=== PATIENT | male | born 1930 | race Caucasian/White ===

== ENCOUNTER → 2016-09-09 | Outpatient (CLI) | payer MEDICARE, BC ==
[~2016-09-09] VITALS: Ht 172.7 cm; Wt 92.3 kg
== END ==
LOC: RC 09:58
PROVIDERS: ATTEND Family Medicine
DX: J44.9 Chronic obstructive pulmonary disease, unspecified (principal)
CPT/HCPCS: 94060; 94726

== ENCOUNTER 2017-02-16 12:15 | Inpatient (IN) ==
--- NOTE | 2017-02-16 12:33 | Emergency Department Report ---
General Adult HPI - General Chief complaint: Extremity Injury, Lower Stated complaint: right knee pain/unable to move Time Seen by Provider: 02/16/17 12:32 Source: patient - History of Present Illness HPI narrative: Patient is an 87-year-old male presents emergency department for evaluation of right knee pain, weakness, inability to ambulate. Patient originally seen by primary medical physician 2 weeks ago, started on on 110 twice a day for bronchitis, started to feel better, however since stopping the antibiotics is been having increasing weakness and shortness of breath. Patient was getting into a car 2 days ago in his right knee gave out, landing on his right knee. Patient having significant discomfort since then. Patient did attempt to see his primary medical physician today who referred him to the emergency department. On arrival patient hypoxic with saturations at 89%, does not normally use oxygen. - Related Data Home Medications Medication Instructions Recorded Confirmed Acetaminophen SR [Tylenol 650 mg PO Q8HR PRN 03/21/17 04/08/17 Arthritis] Budesonide/Formoterol Fumarate 2 puff INH BID 03/21/17 04/08/17 [Symbicort 160-4.5 Mcg Inhaler] Fluticasone Nasal Purdy [Flonase] 1 spray EA NOSTRIL DAILY 03/21/17 04/08/17 Levalbuterol 1.25mg/3ml NEB 1.25 mg AEROSOL TID 03/21/17 04/08/17 [XOPENEX 1.25mg/3ml] dilTIAZem HCl [Cartia Xt] 240 mg PO DAILY 03/21/17 04/08/17 lisinopril 10 mg tablet 10 mg PO DAILY 04/06/17 04/08/17 potassium chloride ER 10 mEq 10 meq PO DAILY 04/06/17 04/08/17 tablet,extended release Tiotropium Handihaler [Spiriva] 1 cap ORAL INH DAILY 04/08/17 04/08/17 Cholecalciferol (Vitamin D3) 1 tab PO DAILY 04/11/17 04/11/17 [Vitamin D3] Colchicine 0.6 mg PO BID 04/11/17 04/11/17 Previous Rx's Medication Instructions Recorded Sotalol [Betapace] 40 mg PO ACBID #60 tab 03/02/17 Tramadol [Ultram] 50 mg PO QID PRN #30 tab 03/23/17 Allergies Allergy/AdvReac Type Severity Reaction Status Date / Time No Known Allergies Allergy Verified 04/08/17 09:14 Review of Systems Constitutional: Reports: weakness. Denies: fever, chills ENT: Denies: throat pain, dental pain Cardiovascular: Denies: chest pain, palpitations Respiratory: Reports: dyspnea. Denies: cough Gastrointestinal: Denies: abdominal pain, nausea, vomiting Genitourinary: Denies: dysuria, frequency Musculoskeletal: Reports: as per HPI Psychiatric: Denies: anxiety PFSH Patient Stated Medical History Cataracts Yes Bronchitis Yes Chronic Obstructive Pulmonary Yes Disease (COPD) Other Infectious Yes: SKIN INFECTION OF WOUND, YEARS AGO. Clinic Medical History (Last Reviewed 04/08/17 @ 10:11 by TANMAY Mercedes) Gout (Acute Medical) Cataracts, bilateral (Chronic Medical) Pneumonia (Chronic Medical) Tremor of both hands (Chronic Medical) Depression (Chronic Medical) Anxiety (Chronic Medical) HTN (hypertension) (Chronic Medical) Surgical History: appendectomy. rt leg surgery/infection. nose surgery. L3- S1 laminectomy & fusion. left cataract Family History: Family History (Last Reviewed 04/08/17 @ 10:11 by TANMAY Mercedes) Father Arthritis Mother Dementia Asthma - Social History Smoking status: Former smoker Physical Exam - General General appearance: alert, in no apparent distress - Eye Eye exam: Present: PERRL, EOMI - ENT ENT exam: Present: normal oropharynx, mucous membranes moist - Neck Neck exam: Present: full ROM, trachea midline - Chest Chest inspection: Present: symmetric chest wall rise - Respiratory Respiratory exam: Present: crackles. Absent: respiratory distress, wheezes - Abdominal Exam Abdominal exam: Present: soft. Absent: distention, tenderness - Extremities Exam Extremities exam: Present: full ROM. Absent: tenderness - Expanded Lower Extremity Exam right Hip/Pelvis exam: Absent: full ROM, tenderness Upper leg exam: Present: full ROM. Absent: tenderness Knee exam: Present: tenderness, pain with valgus, pain with varus. Absent: swelling, abrasion, ecchymosis, dislocation - Back Exam Back exam: Absent: tenderness - Skin Skin exam: Present: warm, dry - Neurological Exam Neurological exam: Present: alert, oriented X3 - Psychiatric Psychiatric exam: Present: normal affect, normal mood Course Vital Signs Temperature 98.6 F 02/16/17 12:18 Pulse Rate 87 02/16/17 12:18 Respiratory Rate 16 02/16/17 12:18 Blood Pressure 124/71 02/16/17 12:18 Pulse Oximetry 89 L 02/16/17 12:18 Temperature 97.5 F 02/21/17 16:00 Pulse Rate 89 02/21/17 16:00 Respiratory Rate 18 02/21/17 16:00 Blood Pressure 136/77 02/21/17 16:00 Pulse Oximetry 96 02/21/17 16:00 Medical Decision Making - MDM Narrative Medical decision making narrative: Patient with signs of a left lower lobe pneumonia hypoxia requiring oxygen white count is 23. CT scan of knee shows no acute fractures. Discussed with hospitalist service they will admit - Medical Records Medical records reviewed: Yes: I reviewed the patient's medical records. - Lab Data Lab results reviewed: Yes: I reviewed the patient's lab results. Result diagrams: 02/21/17 04:26 02/21/17 04:26 Lab Results 02/16/17 02/16/17 02/16/17 Range/Units 00:01 12:53 12:53 WBC 23.2 H (4.5-11.0) T/MM3 RBC 4.26 L (4.50-5.90) M/MM3 Hgb 12.6 L (13.5-17.5) GM/DL Hct 38.0 L (41-53) % MCV 89.2 (80-100) UM3 MCH 29.6 (26-34) UUG MCHC 33.2 (31-37) GM/DL RDW Std Deviation 40.3 (36.9-50.2) FL Plt Count 288 (130-400) T/MM3 MPV 9.9 (9.4-12.4) UM3 Immature Gran % (Auto) Not performed Neut % (Auto) Not performed Lymph % (Auto) Not performed [place] % (Auto) Not performed Eos % (Auto) Not performed Baso % (Auto) Not performed Neut # (Auto) Not performed Lymph # (Auto) Not performed [place] # (Auto) Not performed Eos # (Auto) Not performed Baso # (Auto) Not performed Abs Immat Gran (auto) Not performed Neutrophils % (Manual) 86.0 H (33-66) % Band Neutrophils % 1.0 (0-6) % Lymphocytes % (Manual) 7.0 L (23-45) % Monocytes % (Manual) 6.0 (0-9.0) % Neutrophils # (Manual) 20.0 H (1.8-7.7) T/MM3 Band Neutrophils # 0.2 T/MM3 Lymphocytes # (Manual) 1.6 (1-4.8) T/MM3 Monocytes # (Manual) 1.4 H (0-0.8) T/MM3 RBC Morph Comment Normal Turbidity < 20 (0-20) Sodium 137 (134-144) MEQ/L Potassium 3.9 (3.6-5) MEQ/L Chloride 98 (98-107) MEQ/L Carbon Dioxide 29 (22-30) MEQ/L Anion Gap 10 (5-15) MEQ/L BUN 13.0 (9-20) MG/DL Creatinine 0.8 (0.8-1.5) MG/DL GFR Calculation 92 BUN/Creatinine Ratio 16 (6-26) RATIO Glucose 118 H (75-110) MG/DL Calculated Osmolality 265 (261-280) MOSM/KG Calcium 8.8 (8.4-10.2) MG/DL Total Bilirubin 0.70 (0.20-1.30) MG/DL Icterus Index < 2 (0-7) AST 19 (17-59) U/L ALT 32 (21-72) U/L Alkaline Phosphatase 140 H (38-126) U/L Troponin I < 0.012 (0-0.12) ng/ml B-Natriuretic Peptide 468 H (0-175) pg/mL Total Protein 7.2 (6.3-8.2) G/DL Albumin 3.5 (3.5-5.0) G/DL Globulin 3.7 H (2.4-3.6) G/DL Albumin/Globulin Ratio 0.9 L (1.1-2.2) RATIO Plasma Lactate 1.5 (0.6-2.2) MMOL/L Procalcitonin NG/ML TSH 0.39 L (0.47-4.68) MIU/L Specimen Hemolysis < 15 (0-25) Ur Collection Type Urine Color (YELLOW) Urine Clarity Urine pH (5.0-8.0) Ur Specific [place] (1.015-1.025) Urine Protein (NEGATIVE) Urine Glucose (UA) (NEGATIVE) Urine Ketones (NEGATIVE) Urine Occult Blood (NEGATIVE) Urine Nitrate (NEGATIVE) Urine Bilirubin (NEGATIVE) Urine Urobilinogen (NORMAL) EU/DL Ur Leukocyte Esterase (NEGATIVE) Urine RBC (0-3) /HPF Urine WBC (0-5) /HPF Ur Squamous Epith Cells Urine Bacteria (NEGATIVE) Ur Culture Indicated? 02/16/17 02/16/17 Range/Units 12:53 13:57 WBC (4.5-11.0) T/MM3 RBC (4.50-5.90) M/MM3 Hgb (13.5-17.5) GM/DL Hct (41-53) % MCV (80-100) UM3 MCH (26-34) UUG MCHC (31-37) GM/DL RDW Std Deviation (36.9-50.2) FL Plt Count (130-400) T/MM3 MPV (9.4-12.4) UM3 Immature Gran % (Auto) Neut % (Auto) Lymph % (Auto) [place] % (Auto) Eos % (Auto) Baso % (Auto) Neut # (Auto) Lymph # (Auto) [place] # (Auto) Eos # (Auto) Baso # (Auto) Abs Immat Gran (auto) Neutrophils % (Manual) (33-66) % Band Neutrophils % (0-6) % Lymphocytes % (Manual) (23-45) % Monocytes % (Manual) (0-9.0) % Neutrophils # (Manual) (1.8-7.7) T/MM3 Band Neutrophils # T/MM3 Lymphocytes # (Manual) (1-4.8) T/MM3 Monocytes # (Manual) (0-0.8) T/MM3 RBC Morph Comment Turbidity (0-20) Sodium (134-144) MEQ/L Potassium (3.6-5) MEQ/L Chloride (98-107) MEQ/L Carbon Dioxide (22-30) MEQ/L Anion Gap (5-15) MEQ/L BUN (9-20) MG/DL Creatinine (0.8-1.5) MG/DL GFR Calculation BUN/Creatinine Ratio (6-26) RATIO Glucose (75-110) MG/DL Calculated Osmolality (261-280) MOSM/KG Calcium (8.4-10.2) MG/DL Total Bilirubin (0.20-1.30) MG/DL Icterus Index (0-7) AST (17-59) U/L ALT (21-72) U/L Alkaline Phosphatase (38-126) U/L Troponin I (0-0.12) ng/ml B-Natriuretic Peptide (0-175) pg/mL Total Protein (6.3-8.2) G/DL Albumin (3.5-5.0) G/DL Globulin (2.4-3.6) G/DL Albumin/Globulin Ratio (1.1-2.2) RATIO Plasma Lactate (0.6-2.2) MMOL/L Procalcitonin 0.08 NG/ML TSH (0.47-4.68) MIU/L Specimen Hemolysis (0-25) Ur Collection Type Urine, clean catch Urine Color Yellow (YELLOW) Urine Clarity Clear Urine pH 6.5 (5.0-8.0) Ur Specific [place] 1.010 L (1.015-1.025) Urine Protein Trace A (NEGATIVE) Urine Glucose (UA) Negative (NEGATIVE) Urine Ketones Negative (NEGATIVE) Urine Occult Blood 1+ A (NEGATIVE) Urine Nitrate Negative (NEGATIVE) Urine Bilirubin Negative (NEGATIVE) Urine Urobilinogen 1.0 (NORMAL) EU/DL Ur Leukocyte Esterase 1+ A (NEGATIVE) Urine RBC 3-5 H (0-3) /HPF Urine WBC 10-20 H (0-5) /HPF Ur Squamous Epith Cells 0-5 Urine Bacteria 3+ H (NEGATIVE) Ur Culture Indicated? Cult reflexed &setup - Radiology Data Radiology results reviewed: Yes: I reviewed the patient's radiology results. Left lower lobe pneumonia CT right knee: Effusion, no acute fractures or dislocations - EKG Data EKG #1 EKG attestation: Yes: I reviewed and interpreted this EKG. Rate: tachycardia (100) Rhythm: A.Fib Boomer/QRS: normal Interpretation: no acute changes Disposition Clinical Impression: hypoxemia Disposition: 02 To [facility] Acute Care Condition: Stable - Seen By: physician
[2017-02-16] MEDS ORDERED: CEFTRIAXONE (ER USE ONLY) 1 GM in NS 100 ML IV ONE (12:44)
--- NOTE | 2017-02-16 13:55 | XRay Report ---
INDICATION: cough shortness of air oxygen dependent PROCEDURE: CHEST 2-VIEWS UPRIGHT (PA & LAT) Encounter: Initial COMPARISON: None FINDINGS: Airspace consolidation in the posterior aspect of the superior segment left lower lobe. Mildly prominent interstitial and pulmonary vascular markings. No pleural effusion or pneumothorax. Heart size and mediastinal contours are within normal limits. Degenerative change in the spine. Impression: 1. Left lower lobe airspace disease could represent atelectasis or pneumonia. 2. Interstitial prominence could relate to mild pulmonary vascular congestion or COPD. .
--- NOTE | 2017-02-16 14:16 | CT Scan Report ---
Indication: fall on inability bear weight x-ray negative PROCEDURE: CT LE RT wo con: Encounter: Initial Comparison: Knee radiographs from today Technique: Axial noncontrast CT imaging of the right knee was performed with coronal and sagittal two-dimensional reformats. Automated Exposure Control and Iterative Reconstruction dose reducing techniques were utilized. Findings: Genu varus deformity. Severe medial compartment osteoarthritis with a [id number] appearance and large osteophytes. Extensive subchondral cyst formation. Prominent tricompartmental osteophyte formation. Moderate sized joint effusion. No focal hematoma or extra-articular fluid collection. Loose bodies in the anterior and posterior joint recesses. Arterial vascular calcifications. Impression: No acute fracture. Joint effusion. Severe degenerative change. .
[2017-02-16 15:18] VITALS: BMI 29.7
[2017-02-16] MEDS ORDERED: ONDANSETRON 4 MG/2 ML INJECTION IVP PRN (16:13)
[2017-02-16] MEDS ORDERED: AZITHROMYCIN IV 500 MG in NS 250ml 250 ML IV SCH (16:15)
--- NOTE | 2017-02-16 16:22 | History & Physical Report ---
<Hortensia Pantoja V - Last Filed: 02/16/17 16:25> History of Present Illness Date: 02/16/17 Chief complaint: CAP- Failed outpatinet treatment, sepsis HPI: Mr Ramires is a pleasant 86-year-old male who has not been feeling well for some time. He reports that he was seen by his primary care provider, Dr. Rehman on 02/02. At that time he was diagnosed with bronchitis and was started on Augmentin twice a day for 7 days. During this time. He also received Cipro eyedrops for conjunctivitis. Initially during treatment. He did feel somewhat better. However , upon completion of antibiotic course, he began to feel worse again. On Wednesday 02/14. He was getting into the car and his right knee gave out causing him to fall. Since that time he has had right knee discomfort. Today he presented to the emergency room for further acute evaluation. Upon arrival he was found to be hypoxic with room air saturations of 89%. Further evaluation did reveal leukocytosis with a white count of 23.2. Hemoglobin 12.6, hematocrit 38.0, neutrophils 86%. Chemistry panel overall unremarkable. Troponin was negative, proBNP 468. Plasma lactate 1.5, pro calcitonin 0.08. A urinalysis was obtained that showed trace protein, 1+ blood, 1+ leukocyte esterase, 3-5 RBCs with 10-20 WBCs with 3+ bacteria. Twelve-lead EKG did reveal atrial fibrillation with a rate of 100. This is a new finding for the patient. A chest x-ray was obtained that did reveal left lower lobe pneumonia with interstitial vascular congestion/ COPD. Given significance in right knee discomfort. A CT scan of the lower extremity was obtained. It did not show any acute fracture. However, presence of a joint effusion with severe degenerative changes. Blood cultures were obtained and patient was started on IV Rocephin for antimicrobial coverage. Given the hypoxia, accompanied with significant leukocytosis and pneumonia. The hospitalist services were contacted and accepted patient for inpatient admission for further evaluation and treatment. It is expected that his stay will be greater than 2 overnights. Review of Systems All systems PM: 10-point ROS was reviewed, no additional remarkable complaints except - Constitutional Constitutional: Present: fatigue, lethargy, weakness - Respiratory Respiratory: Present: cough - Gastrointestinal Gastrointestinal: Present: constipation - Musculoskeletal Musculoskeletal Comments: Right knee pain PFSH Patient Stated Medical History Hypertension. COPD History of right leg soft tissue infection. Questionable history of TIA Cataracts Surgical History: Appendectomy. Right leg surgery/infection site. nose surgery. L3-S1 laminectomy & fusion. left cataract extraction Family History: Father history of depression. Mother history of asthma. Patient is the youngest sibling of 9 total. He is the only sibling still alive. He is unclear on the medical history of his siblings - Social History Smoking status: Former smoker (Quit at age 31) Substance use type: does not use Alcohol intake frequency: does not drink Housing: house Household members: spouse Current occupational status: retired ([employer]) Current residence: Apartment/Private Home (resides independently at home with his ) Social history: Primary care provider, Dr. Rehman Neurosurgeon Dr. Magana Medications Home Medications Medication Instructions Recorded Confirmed Type Breo Ellipta (fluticasone 100 1 inh INH Q24H 02/02/17 02/16/17 History mcg-vilanterol 25 mcg/dose) powder for inhalation Cozaar (losartan) 50 mg tablet 50 mg PO .QD 90 Days tab 02/02/17 02/16/17 History Flonase (Fluticasone) 50 mcg nasal 1 spray INTRANASAL DAILY 30 Days 02/02/17 History spray #16 Lopressor (metoprolol tartrate) 50 50 mg PO BID 90 Days tab 02/02/17 02/16/17 History mg tablet Norvasc (amlodipine) 10 mg tablet 10 mg PO .QD 90 Days tab 02/02/17 02/16/17 History Spiriva Respimat (tiotropium 2 puff INH PRN 02/02/17 02/16/17 History bromide) 2.5 mcg/actuation, inhalation indapamide 1.25 mg tablet 1.25 mg PO .QD 90 Days tab 02/02/17 02/16/17 History Cholecalciferol [Vit. D-3] 1,000 unit PO DAILY 02/16/17 02/16/17 History Potassium Chloride 20 meq PO DAILY 02/16/17 02/16/17 History Allergies Allergy/AdvReac Type Severity Reaction Status Date / Time No Known Allergies Allergy Verified 02/16/17 12:42 Exam Vital Signs: Temperature 99.5 F 02/16/17 15:23 Pulse Rate 118 H 02/16/17 15:17 Respiratory Rate 20 10/18/17 15:17 Blood Pressure 124/64 02/16/17 15:17 Pulse Oximetry 93 02/16/17 15:17 Telemetry Rhythm: A-fib Height/Weight/BMI: Height 1.75 m Weight 91.4 kg Body Mass Index 29.7 - Constitutional Present: no acute distress, well nourished, well developed - Routine HEENT Exam Eye: Present: EOMI ENT: Present: mucous membranes moist, dentition normal - Routine Respiratory Exam Present: crackles (faint), diminished air movement (bases). Absent: wheezes - Routine Cardiovascular Exam Present: RRR, S1, S2. Absent: murmur - Routine Abdominal Exam Present: soft, non distended. Absent: normoactive bowel sounds (hypoactive), tenderness - Routine Extremities Exam Present: edema, pulses intact Comments: Right knee swelling - Routine Skin Exam Present: intact, dry, warm - Routine Neurological Exam Present: alert, oriented X3, CN II-XII intact - Routine Psychiatric Exam Present: normal affect, cooperative Results - Labs CBC & Chem 7: 02/16/17 12:53 02/16/17 12:53 Assessment and Plan (1) CAP (community acquired pneumonia) Current visit: Yes Status: Acute (2) Failure of outpatient treatment Current visit: Yes Status: Acute DVT Prophylaxis: SCD's Resuscitation Status: Full Code Assessment and Plan: Impression Community-acquired pneumonia Failed outpatient treatment Acute respiratory failure with hypoxia Right knee pain with joint effusion Hypertension Osteoarthritis Plan Admit inpatient status under the care of Dr. Garcia for community-acquired pneumonia, failed outpatient treatment with hypoxia. Blood cultures were obtained in the emergency room. Initial venous lactate was normal at 1.5. Will repeat lactate at 1700 as per sepsis protocol. Further infectious workup including sputum culture, urine culture, urine for strep pneumoniae a as well as Legionella. Patient was given Rocephin 1 gram IV in the emergency room. We will continue this daily and add oral doxycycline twice a day. Given new-onset atrial fibrillation. Will obtain echocardiogram and Cardiac consultation placed to Dr. Fowler In regards to right knee effusion. Will place orthopedic consultation to Dr. Lynn. Would like his recommendation regarding at this effusion should be tapped at this time or done in the outpatient setting following antibiotic therapy. Patient does report ongoing right knee pain that has been worse since Tuesday following his fall. Noted to have severe osteoarthritis in the knee that has been hindering his ambulation. SCDs to bilateral lower extremity for DVT prophylaxis Did discuss advanced directives with patient, and family members. At this point he would like to be a full code, however, would not want long-term life- sustaining measures also indicates that patient is having so much difficulty with ambulation due to the right knee pain as well as the weakness and debility secondary to this acute illness. She is not able to care for him safely at home. She wonders if he is possibly a candidate for IRU versus skilled at time of discharge. Hospital Course Summary Disclaimer: The visit summary below is not to be considered part of the above Progress Note. Hospital Course: 02/16/17 Impression Community-acquired pneumonia Failed outpatient treatment Acute respiratory failure with hypoxia Right knee pain with joint effusion Hypertension Osteoarthritis Plan Admit inpatient status under the care of Dr. Garcia for community-acquired pneumonia, failed outpatient treatment with hypoxia. Blood cultures were obtained in the emergency room. Initial venous lactate was normal at 1.5. Will repeat lactate at 1700 as per sepsis protocol. Further infectious workup including sputum culture, urine culture, urine for strep pneumoniae a as well as Legionella. Patient was given Rocephin 1 gram IV in the emergency room. We will continue this daily and add oral doxycycline twice a day. Given new-onset atrial fibrillation. Will obtain echocardiogram and Cardiac consultation placed to Dr. Fowler In regards to right knee effusion. Will place orthopedic consultation to Dr. Lynn. Would like his recommendation regarding at this effusion should be tapped at this time or done in the outpatient setting following antibiotic therapy. Patient does report ongoing right knee pain that has been worse since Tuesday following his fall. Noted to have severe osteoarthritis in the knee that has been hindering his ambulation. SCDs to bilateral lower extremity for DVT prophylaxis Did discuss advanced directives with patient, and family members. At this point he would like to be a full code, however, would not want long-term life- sustaining measures also indicates that patient is having so much difficulty with ambulation due to the right knee pain as well as the weakness and debility secondary to this acute illness. She is not able to care for him safely at home. She wonders if he is possibly a candidate for IRU versus skilled at time of discharge. <Ariella Garcia - Last Filed: 02/16/17 18:00> History of Present Illness Date: 02/16/17 [facility] Patient Stated Medical History Transient Ischemic Attacks ( Yes: possibly-in 1998 TIA) Cataracts Yes: removed Hypertension Yes Bronchitis Yes Chronic Obstructive Pulmonary Yes Disease (COPD) Pneumonia Yes Other Infectious Yes: SKIN INFECTION OF WOUND, YEARS AGO. Clinic Medical History (Last Updated 02/02/17 @ 14:18 by Franca Glynn MA) HTN (hypertension) (Acute Medical) Exam Vital Signs: Temperature 99.5 F 02/16/17 15:23 Pulse Rate 118 H 02/16/17 15:17 Respiratory Rate 20 02/16/17 15:17 Blood Pressure 124/64 02/16/17 15:17 Pulse Oximetry 93 02/16/17 15:17 Height/Weight/BMI: Height 5 ft 9 in Weight 201 lb 8.04 oz Body Mass Index 29.7 Results - Labs CBC & Chem 7: 02/16/17 12:53 02/16/17 12:53 Assessment and Plan (1) CAP (community acquired pneumonia) Current visit: Yes Status: Acute (2) Failure of outpatient treatment Current visit: Yes Status: Acute Assessment and Plan: I have independently evaluated and examined this patient. I reviewed the chart, the patient's history, and the BULLET SWAGING MACHINE OPERATOR/PA's documented findings as above. We discussed and formulated the assessment and plan as above with additions as below. The patient was seen at 1730. He reports his biggest concern is the pain in his right knee. He reports his respiratory problems have been going on since the summer where he has had a productive cough with yellow sputum. His who is at his bedside remains him that his symptoms are gone for a while but he did not go to see the doctor until recently. The patient denies fevers or chills. He denies chest pain or pain with inspiration. It should be noted he sees Dr. Magana for his back and had back surgery at some point. On physical examination: In general, the patient is alert and oriented 3, cooperative with exam, and in no respiratory distress. HEENT: Head is atraumatic, normocephalic, no oral thrush, mucous membranes are moist and pink. Lungs: Occasional crackles in the bases, no rhonchi CV: Regular rate and rhythm without murmur, distant heart tones Abdomen: Soft, nontender, bowel sounds are present, there is no guarding no rebound. Extremities: No clubbing, no cyanosis, no edema. There is swelling of the right knee, there is no warmth no erythema and it is nontender. Skin: Warm and dry no sign of rash Neuro: Patient is alert Impression and plan as outlined above. We'll have cardiology see for new onset atrial fibrillation, place on telemetry. Dr. Lynn has been consulted for his right knee effusion Will treat with IV ceftriaxone and oral doxycycline for community-acquired pneumonia which has failed previous therapy. Has of his new cardiac rhythm issues will try to avoid quinolones and macrolides at this time. The patient needs an influenza vaccine. The believes he's had a pneumococcal vaccine but is not sure which one. Contacted the pharmacy at [place]- he refused the pneumococcal vaccine in 2005. We will try to find this information from Dr. Rehman's office tomorrow. Will give Tdap. Hospital Course Summary Disclaimer: The visit summary below is not to be considered part of the above Progress Note.
[2017-02-16] MEDS: ACETAMINOPHEN 500 MG TABLET PO SCH ×2 (17:00→21:05)
[2017-02-16] MEDS: POLYETHYL GLYCOL 3350 17gm PACKET PO SCH (17:00)
[2017-02-16] MEDS: NS 1,000 ML IV SCH (17:01)
[2017-02-16] MEDS ORDERED: INFLUENZA VAC QIV 2017-18 (Fluarix*)(>=3yo) 0.5ml IM ONE (17:55)
[2017-02-16] MEDS ORDERED: TETANUS, DIPHTHERIA, a PERTUSSIS (Tdap) 0.5ml INJECTION IM ONE (17:58)
[2017-02-16] MEDS ORDERED: INFLUENZA VAC. INJ. ADMIN CHARGE INJ ONE (18:45)
[2017-02-16] MEDS ORDERED: Tdap VACCINE ADMINISTR CHARGE INJ ONE (18:45)
[2017-02-16] MEDS: SENNA + DOCUSATE TABLET PO SCH (21:04)
--- NOTE | 2017-02-16 23:30 | Cardiology Consult Note ---
History of Present Illness Consult date: 02/17/17 <Debi Terrell Bari - 02/16/17 23:30> Requesting physician: Ariella Garcia <Debi Terrell Bari - 02/16/17 23:30> Consult reason: atrial fibrillation <Debi Terrell Bari - 02/16/17 23:30> Chief complaint: right knee pain <Debi Terrell Bari - 02/17/17 00:33> History of present illness: This is an 86 year old patient with a history of HTN , TIA, COPD, and osteoarthritis and no known cardiac issues nor cardiac workup in the past. On 02/02/[address] Rehman for generalized malaise and was diagnosed with bronchitis and conjunctivitis and started on antibiotics and symptoms improved then he felt poorly again. On 02/14/2017, he was getting into his car for an eye doctor appointment when his right knee gave out and he fell onto the right knee. His helped him get into the car and he went to the eye appointment. By 02/16, Tuesday his right knee pain was worse and he saw his PCP, Dr. Rehman who recommended he go to the ER. In ER he was hypoxic with O2 sat 89%, WBC 23.2, neutrophils elevated. Trop negative, ProBNP 468, and UTI. ECG: A-fib, HR 100, LAFB, possible septal and lateral old infarct. CXR: pneumonia with congestion and COPD. CT of knee: no fracture but joint effusion with severe degenerative changes. In ER he was given Rocephin IV. He was admitted under the hospitalist who consulted Dr. Fowler for Afib. Pt denies chest pain, palpitations, irregular or fast heart beat, SOB, he denies feeling dizzy, lightheaded or feeling like he could pass out nor has he passed out in the past. <Debi Terrell Bari - 02/17/17 01:00> Review of Systems - Constitutional Constitutional: Present: malaise, weakness. Absent: chills, fever(s) < Debi Terrell Bari - 02/17/17 00:33> - EENMT Eyes: Absent: blurry vision <XanderDebi T - 02/17/17 00:33> Nose: Absent: nosebleeds <Debi Terrell 02/17/17 00:33> Mouth/Throat: Absent: sore throat <Debi Terrell 02/17/17 00:33> - Cardiovascular Cardiovascular: Absent: chest pain, palpitations, syncope, dyspnea on exertion, orthopnea, edema <Debi Terrell 02/17/17 00:33> Vascular: Absent: pedal edema, unilateral swelling <Debi Terrell 00:33> - Respiratory Respiratory: Absent: cough, dyspnea <Debi Terrell 02/17/17 00:33> - Gastrointestinal Gastrointestinal: Absent: abdominal pain, nausea, vomiting <Debi Terrell 02/17/17 00:33> - Musculoskeletal Musculoskeletal: Present: abnormal gait, arthralgias, joint swelling, limited range of motion (of right leg). Absent: myalgias <Debi Terrell 00:33> - Integumentary/Breasts Integumentary: Absent: erythema, wounds <Debi Terrell 02/17/17 00:33> - Neurological Neurological: Present: abnormal gait. Absent: abnormal speech, confusion, dizziness, loss of vision, vertigo <Debi Terrell 02/17/17 00:33> - Psychiatric Psychiatric: Absent: anxiety, depression <Debi Terrell 02/17/17 00:33> - Endocrine Endocrine: Absent: heat intolerance, palpitations <Debi Terrell 00:33> - Hematologic/Lymphatic Hematologic/Lymphatic: Absent: easy bruising <Debi Terrell 02/17/17 00: 33> [facility] Patient Stated Medical History Transient Ischemic Attacks ( Yes: possibly-in 1998 TIA) Cataracts Yes: removed Hypertension Yes Bronchitis Yes Chronic Obstructive Pulmonary Yes Disease (COPD) Pneumonia Yes Other Infectious Yes: SKIN INFECTION OF WOUND, YEARS AGO. Clinic Medical History (Last Updated 02/02/17 @ 14:18 by Franca Glynn MA) HTN (hypertension) (Acute Medical) <Duarte Fowler - 02/17/17 14:53> Patient Stated Medical History Transient Ischemic Attacks ( Yes: possibly-in 1998 TIA) Cataracts Yes: removed Hypertension Yes Bronchitis Yes Chronic Obstructive Pulmonary Yes Disease (COPD) Pneumonia Yes Other Infectious Yes: SKIN INFECTION OF WOUND, YEARS AGO. Clinic Medical History (Last Updated 02/02/17 @ 14:18 by Franca Glynn MA) HTN (hypertension) (Acute Medical) <Debi Terrell 02/17/17 01:00> Surgical History: Appendectomy. Right leg surgery/infection site. nose surgery. L3-S1 laminectomy & fusion. left cataract extraction <Debi Terrell 02/16/17 23:30> - Social History Smoking status: Former smoker (Quit at age 31) <Debi Terrell 02/17/17 01 :00> Substance use type: does not use <Debi Terrell 02/17/17 01:00> Alcohol intake: never <Debi Terrell 02/17/17 01:00> Housing: house <Debi Terrell 02/17/17 01:00> Household members: spouse, children (13 yr old grandchild they are raising. ) <Debi Terrell 02/17/17 01:00> Current occupational status: retired <Debi Terrell 02/17/17 01:00> Previous occupational history: [employer] dept for 31 yrs. <Debi Terrell 02/17/17 01:00> Current residence: Apartment/Private Home (lives in [place].) <Debi Terrell 02/17/17 01:21> Medications Home Medications Medication Instructions Recorded Confirmed Type Breo Ellipta (fluticasone 100 1 inh INH Q24H 02/02/17 02/16/17 History mcg-vilanterol 25 mcg/dose) powder for inhalation Cozaar (losartan) 50 mg tablet 50 mg PO .QD 90 Days tab 02/02/17 02/16/17 History Flonase (Fluticasone) 50 mcg nasal 1 spray INTRANASAL DAILY 30 Days 02/02/17 History spray #16 Lopressor (metoprolol tartrate) 50 50 mg PO BID 90 Days tab 02/02/17 02/16/17 History mg tablet Norvasc (amlodipine) 10 mg tablet 10 mg PO .QD 90 Days tab 02/02/17 02/16/17 History Spiriva Respimat (tiotropium 2 puff INH PRN 02/02/17 02/16/17 History bromide) 2.5 mcg/actuation, inhalation indapamide 1.25 mg tablet 1.25 mg PO .QD 90 Days tab 02/02/17 02/16/17 History Cholecalciferol [Vit. D-3] 1,000 unit PO DAILY 02/16/17 02/16/17 History Potassium Chloride 20 meq PO DAILY 02/16/17 02/16/17 History <Duarte Fowler - 02/17/17 14:53> Allergies Allergy/AdvReac Type Severity Reaction Status Date / Time No Known Allergies Allergy Verified 02/16/17 12:42 <Duarte Fowler - 02/17/17 14:53> Exam Vital signs: Temperature 95.8 F L 02/17/17 07:53 Pulse Rate 82 02/17/17 08:00 Respiratory Rate 12 02/17/17 09:37 Blood Pressure 94/53 02/17/17 07:53 Pulse Oximetry 94 02/17/17 09:37 <Duarte Fowler - 02/17/17 14:53> Temperature 97.8 F 02/16/17 19:55 Pulse Rate 82 02/16/17 21:25 Respiratory Rate 18 02/16/17 21:25 Blood Pressure 116/59 02/16/17 19:55 Pulse Oximetry 94 02/16/17 21:25 <Debi Terrell - 02/16/17 23:30> - Constitutional no acute distress, well nourished, well developed, average body habitus, cooperative <Debi Terrell - 02/17/17 01:00> Comments: States right knee hurts when he moves. <Debi Terrell - 02/17/17 01:00> - Routine HEENT Exam Head: Present: normocephalic, atraumatic <Debi Terrell - 02/17/17 01:00> Eye: Present: PERRL, conjunctivae pink, cataracts (surgery) <Debi Terrell - 02/17/17 01:00> ENT: Present: mucous membranes moist, dentition normal <Debi Terrell 01:00> - Routine Neck Exam Absent: JVD, carotid bruit <Debi Terrell 02/17/17 01:00> - Routine Respiratory Exam Present: CTA bilaterally, crackles (a few crackles in bases simone ) <Debi Terrell 02/17/17 01:00> - Routine Cardiovascular Exam Present: no murmur, irregular rhythm <Debi Terrell 02/17/17 01:00> - Routine Abdominal Exam Present: soft, normoactive bowel sounds, non distended <Debi Terrell 01:00> - Routine Extremities Exam Present: no edema <Debi Terrell 02/17/17 01:00> Comments: Unable to palpate pedal pulses. But feet are warm. <Debi Terrell 02/17/17 01:00> - Routine Skin Exam Present: intact, dry, warm, normal turgor <Debi Terrell 02/17/17 01:00> - Routine Neurological Exam Present: alert, oriented X3, moving all extremities, vision grossly intact, hearing grossly intact, normal speech <Debi Terrell 02/17/17 01:00> - Routine Psychiatric Exam Present: normal affect, normal thought process, cooperative, good insight, good judgment <Debi Terrell 02/17/17 01:00> Results 02/16/17 12:53 02/16/17 12:53 <Duarte Fowler - 02/17/17 14:53> Intake and Output 02/16/17 02/17/17 02/17/17 22:59 06:59 14:59 Intake Total 400 / 400 1495 / 1495 2125 / 2125 Output Total 475 / 475 800 / 800 550 / 550 Balance -75 / -75 695 / 695 1575 / 1575 Intake: IV 1345 / 1345 655 / 655 Ns 1,000 ml @ 100 mls/hr 1345 / 1345 655 / 655 IV .Q10H MARVA Rx#: [id number] Oral 400 / 400 150 / 150 1470 / 1470 Output: Urine 475 / 475 800 / 800 550 / 550 Other: Urine Appearance Cloudy Clear Clear Urine Color Light Blanca Light Blanca Dark Blanca Urine Odor Normal Stool Color Brown Stool Consistency Formed Size of Bowel Movement Large # Voids 1 1 Weight 91.4 kg 91.8 kg Patient Weight 02/18/17 06:59 Weight 91.8 kg <Duarte Fowler - 02/17/17 14:53> Intake and Output 02/16/17 02/16/17 02/17/17 14:59 22:59 06:59 Intake Total 400 / 400 Output Total 475 / 475 Balance -75 / -75 Intake: Oral 400 / 400 Output: Urine 475 / 475 Other: Urine Appearance Cloudy Urine Color Light Blanca # Voids 1 Weight 201 lb 8.04 oz Patient Weight 02/17/17 06:59 Weight 201 lb 8.04 oz Most recent lab results Calcium 8.8 MG/DL (8.4-10.2) 02/16/17 12:53 Laboratory Results WBC 23.2 T/MM3 (4.5-11.0) H 02/16/17 12:53 RBC 4.26 M/MM3 (4.50-5.90) L 02/16/17 12:53 Hgb 12.6 GM/DL (13.5-17.5) L 02/16/17 12:53 Hct 38.0 % (41-53) L 02/16/17 12:53 MCV 89.2 UM3 (80-100) 02/16/17 12:53 MCH 29.6 UUG (26-34) 02/16/17 12:53 MCHC 33.2 GM/DL (31-37) 02/16/17 12:53 RDW Std Deviation 40.3 FL (36.9-50.2) 02/16/17 12:53 Plt Count 288 T/MM3 (130-400) 02/16/17 12:53 MPV 9.9 UM3 (9.4-12.4) 02/16/17 12:53 Immature Gran % (Auto) Not performed 02/16/17 12:53 Neut % (Auto) Not performed 02/16/17 12:53 Lymph % (Auto) Not performed 02/16/17 12:53 [place] % (Auto) Not performed 02/16/17 12:53 Eos % (Auto) Not performed 02/16/17 12:53 Baso % (Auto) Not performed 02/16/17 12:53 Neut # (Auto) Not performed 02/16/17 12:53 Lymph # (Auto) Not performed 02/16/17 12:53 [place] # (Auto) Not performed 02/16/17 12:53 Eos # (Auto) Not performed 02/16/17 12:53 Baso # (Auto) Not performed 02/16/17 12:53 Abs Immat Gran (auto) Not performed 02/16/17 12:53 Neutrophils % (Manual) 86.0 % (33-66) H 02/16/17 12:53 Band Neutrophils % 1.0 % (0-6) 02/16/17 12:53 Lymphocytes % (Manual) 7.0 % (23-45) L 02/16/17 12:53 Monocytes % (Manual) 6.0 % (0-9.0) 02/16/17 12:53 Neutrophils # (Manual) 20.0 T/MM3 (1.8-7.7) H 02/16/17 12:53 Band Neutrophils # 0.2 T/MM3 02/16/17 12:53 Lymphocytes # (Manual) 1.6 T/MM3 (1-4.8) 02/16/17 12:53 Monocytes # (Manual) 1.4 T/MM3 (0-0.8) H 02/16/17 12:53 RBC Morph Comment Normal 02/16/17 12:53 Turbidity < 20 (0-20) 02/16/17 12:53 Sodium 137 MEQ/L (134-144) 02/16/17 12:53 Potassium 3.9 MEQ/L (3.6-5) 02/16/17 12:53 Chloride 98 MEQ/L (98-107) 02/16/17 12:53 Carbon Dioxide 29 MEQ/L (22-30) 02/16/17 12:53 Anion Gap 10 MEQ/L (5-15) 02/16/17 12:53 BUN 13.0 MG/DL (9-20) 02/16/17 12:53 Creatinine 0.8 MG/DL (0.8-1.5) 02/16/17 12:53 GFR Calculation 92 02/16/17 12:53 BUN/Creatinine Ratio 16 RATIO (6-26) 02/16/17 12:53 Glucose 118 MG/DL (75-110) H 02/16/17 12:53 Calculated Osmolality 265 MOSM/KG (261-280) 02/16/17 12:53 Calcium 8.8 MG/DL (8.4-10.2) 02/16/17 12:53 Total Bilirubin 0.70 MG/DL (0.20-1.30) 02/16/17 12:53 Icterus Index < 2 (0-7) 02/16/17 12:53 AST 19 U/L (17-59) 02/16/17 12:53 ALT 32 U/L (21-72) 02/16/17 12:53 Alkaline Phosphatase 140 U/L (38-126) H 02/16/17 12:53 Troponin I < 0.012 ng/ml (0-0.12) 02/16/17 12:53 B-Natriuretic Peptide 468 pg/mL (0-175) H 02/16/17 12:53 Total Protein 7.2 G/DL (6.3-8.2) 02/16/17 12:53 Albumin 3.5 G/DL (3.5-5.0) 02/16/17 12:53 Globulin 3.7 G/DL (2.4-3.6) H 02/16/17 12:53 Albumin/Globulin Ratio 0.9 RATIO (1.1-2.2) L 02/16/17 12:53 Plasma Lactate 1.3 MMOL/L (0.6-2.2) 02/16/17 17:40 Procalcitonin 0.08 NG/ML 02/16/17 12:53 Specimen Hemolysis < 15 (0-25) 02/16/17 12:53 Ur Collection Type Urine, clean catch 02/16/17 13:57 Urine Color Yellow (YELLOW) 02/16/17 13:57 Urine Clarity Clear 02/16/17 13:57 Urine pH 6.5 (5.0-8.0) 02/16/17 13:57 Ur Specific [place] 1.010 (1.015-1.025) L 02/16/17 13:57 Urine Protein Trace (NEGATIVE) A 02/16/17 13:57 Urine Glucose (UA) Negative (NEGATIVE) 02/16/17 13:57 Urine Ketones Negative (NEGATIVE) 02/16/17 13:57 Urine Occult Blood 1+ (NEGATIVE) A 02/16/17 13:57 Urine Nitrate Negative (NEGATIVE) 02/16/17 13:57 Urine Bilirubin Negative (NEGATIVE) 02/16/17 13:57 Urine Urobilinogen 1.0 EU/DL (NORMAL) 02/16/17 13:57 Ur Leukocyte Esterase 1+ (NEGATIVE) A 02/16/17 13:57 Urine RBC 3-5 /HPF (0-3) H 02/16/17 13:57 Urine WBC 10-20 /HPF (0-5) H 02/16/17 13:57 Ur Squamous Epith Cells 0-5 02/16/17 13:57 Urine Bacteria 3+ (NEGATIVE) H 02/16/17 13:57 Ur Culture Indicated? Cult reflexed &setup 02/16/17 13:57 <Debi Terrell - 02/17/17 01:00> - Imaging and Cardiology Echo: pending <Debi Terrell - 02/17/17 01:00> Imaging & Cardiology Narrative: 02/16/2017 CXR FINDINGS: Airspace consolidation in the posterior aspect of the superior segment left lower lobe. Mildly prominent interstitial and pulmonary vascular markings. No pleural effusion or pneumothorax. Heart size and mediastinal contours are within normal limits. Degenerative change in the spine. Impression: 1. Left lower lobe airspace disease could represent atelectasis or pneumonia. 2. Interstitial prominence could relate to mild pulmonary vascular congestion or COPD. 02/17/17 00:57 \ 02/16/2017 CT lower extremity Findings: Genu varus deformity. Severe medial compartment osteoarthritis with a [id number] appearance and large osteophytes. Extensive subchondral cyst formation. Prominent tricompartmental osteophyte formation. Moderate sized joint effusion. No focal hematoma or extra-articular fluid collection. Loose bodies in the anterior and posterior joint recesses. Arterial vascular calcifications. Impression: No acute fracture. Joint effusion. Severe degenerative change. <Debi Terrell - 02/17/17 01:00> - EKG Interpretation EKG shows: atrial fibrillation (02/16/2017 ECG: A-fib, HR 100, LAFB, possible septal and lateral infarct, old. ) <Debi Terrell - 02/17/17 01:00> Assessment and Plan - Attestation Attestation Narrative: 02/17/17 14:53 Recommendation After examining the patient I agree with the above assessment. I am involved in the formulation of the patient's plan of care. <Duarte Fowler - 02/17/17 14:53> - Assessment and Plan (1) CAP (community acquired pneumonia) Current visit: Yes Status: Acute (2) Atrial fibrillation Current visit: Yes Status: Acute (3) HTN (hypertension) Current visit: Yes Status: Chronic (4) Right knee pain Current visit: Yes Status: Acute (5) Osteoarthritis Current visit: Yes Status: Acute <Duarte Fowler - 02/17/17 14:53> (1) Atrial fibrillation Current visit: Yes Status: Acute New onset. No prior documentation of A-fib. Pt denies symptoms therefore unknown onset. He was admitted in A-fib. - - Restart his metoprolol 50mg BID. He took it this am. - Hold other BP meds as his BP is ok now and will allow us to increased BB or add CCB for Heart rate control. - No anticoagulation at this time since orthopedics has been consulted and may drain knee effusion. - HR controlled at 90's to 100's. - If he becomes unstable or symptomatic, consider MICHELLE/ DCCV to rule out clot and convert to SR. - After effusion drained or not going to be drained, then start anticoagulant for stroke prevention. (2) CAP (community acquired pneumonia) Current visit: Yes Status: Acute Treatment with ABX per Dr. Garcia. slight fever, receiving scheduled tylenol for knee pain. (3) HTN (hypertension) Current visit: Yes Status: Chronic - BP and HR are good. - Cont metoprolol 50mg BID for HR control. - Hold other BP meds to allow to increase BB or CCB if needed. (4) Right knee pain Current visit: Yes Status: Acute Dr. Lynn has been consulted to determine if he will drain effusion. (5) Osteoarthritis Current visit: Yes Status: Acute <Debi Terrell - 02/17/17 01:18> Hospital Course Summary Disclaimer: The visit summary below is not to be considered part of the above Progress Note. <Duarte Fowler - 02/17/17 14:53> The visit summary below is not to be considered part of the above Progress Note. <Debi Terrell - 02/16/17 23:30> Hospital Course: 02/16/17 Impression Community-acquired pneumonia Failed outpatient treatment Acute respiratory failure with hypoxia Right knee pain with joint effusion Hypertension Osteoarthritis Plan Admit inpatient status under the care of Dr. Garcia for community-acquired pneumonia, failed outpatient treatment with hypoxia. Blood cultures were obtained in the emergency room. Initial venous lactate was normal at 1.5. Will repeat lactate at 1700 as per sepsis protocol. Further infectious workup including sputum culture, urine culture, urine for strep pneumoniae a as well as Legionella. Patient was given Rocephin 1 gram IV in the emergency room. We will continue this daily and add oral doxycycline twice a day. Given new-onset atrial fibrillation. Will obtain echocardiogram and Cardiac consultation placed to Dr. Fowler In regards to right knee effusion. Will place orthopedic consultation to Dr. Lynn. Would like his recommendation regarding at this effusion should be tapped at this time or done in the outpatient setting following antibiotic therapy. Patient does report ongoing right knee pain that has been worse since Tuesday following his fall. Noted to have severe osteoarthritis in the knee that has been hindering his ambulation. SCDs to bilateral lower extremity for DVT prophylaxis Did discuss advanced directives with patient, and family members. At this point he would like to be a full code, however, would not want long-term life- sustaining measures also indicates that patient is having so much difficulty with ambulation due to the right knee pain as well as the weakness and debility secondary to this acute illness. She is not able to care for him safely at home. She wonders if he is possibly a candidate for IRU versus skilled at time of discharge. <Debi Terrell - 02/16/17 23:30> Addendum entered and electronically signed by Debi Terrell APRN 02/17/17 01:32: Hx of TIA possibly from A-fib. will start anticoagulant tomorrow if ok by [email or web address]
[2017-02-17] MEDS: ACETAMINOPHEN 500 MG TABLET PO SCH ×5 (00:20→17:59)
[2017-02-17] MEDS: NS 1,000 ML IV SCH ×2 (03:20→13:20)
[2017-02-17] MEDS ORDERED: PNEUMOCOCCAL VAC ADMIN CHARGE INJ ONE (08:01)
[2017-02-17] MEDS: SENNA + DOCUSATE TABLET PO SCH ×2 (08:57→20:00)
[2017-02-17] MEDS: POLYETHYL GLYCOL 3350 17gm PACKET PO SCH (08:58)
--- NOTE | 2017-02-17 09:24 | Orthopedic Consult Note ---
Orthopedic Consultation HPI - Consultation Info Consult Date: 02/17/17 Attending Physician: Faby Burt MD Consult Reason: joint pain - History of Present Illness Mr. Freeman is an 86-year-old gentleman who is currently been admitted for pneumonia and has also been having right knee pain. He states the knee gave way on him on Tuesday and since he has had increased pain. He states that he did have pain before Tuesday from arthritis. He has had a CT scan and a x-ray which are negative for acute injury. He does have a significant effusion. I was consult for treatment of his right knee pain and to rule out septic arthritis. Review of Systems - Constitutional Constitutional: Absent: chills, fever(s), night sweats - Cardiovascular Cardiovascular: Absent: chest pain, palpitations - Respiratory Respiratory: Absent: cough, dyspnea - Gastrointestinal Gastrointestinal: Absent: abdominal pain, nausea, vomiting - Musculoskeletal Musculoskeletal: Present: as per HPI - Integumentary/Breasts Integumentary: Absent: lesions, rash - Neurological Neurological: Absent: numbness, tingling PFSH Patient Stated Medical History Transient Ischemic Attacks ( Yes: possibly-in 1998 TIA) Cataracts Yes: removed Hypertension Yes Bronchitis Yes Chronic Obstructive Pulmonary Yes Disease (COPD) Pneumonia Yes Other Infectious Yes: SKIN INFECTION OF WOUND, YEARS AGO. Clinic Medical History (Last Updated 02/02/17 @ 14:18 by Franca Glynn MA) HTN (hypertension) (Acute Medical) Surgical History: Appendectomy. Right leg surgery/infection site. nose surgery. L3-S1 laminectomy & fusion. left cataract extraction - Social History Smoking status: Former smoker (Quit at age 31) Current residence: Apartment/Private Home (lives in [place].) Medications Home Medications Medication Instructions Recorded Confirmed Type Breo Ellipta (fluticasone 100 1 inh INH Q24H 02/02/17 02/16/17 History mcg-vilanterol 25 mcg/dose) powder for inhalation Cozaar (losartan) 50 mg tablet 50 mg PO .QD 90 Days tab 02/02/17 02/16/17 History Flonase (Fluticasone) 50 mcg nasal 1 spray INTRANASAL DAILY 30 Days 02/02/17 History spray #16 Lopressor (metoprolol tartrate) 50 50 mg PO BID 90 Days tab 02/02/17 02/16/17 History mg tablet Norvasc (amlodipine) 10 mg tablet 10 mg PO .QD 90 Days tab 02/02/17 02/16/17 History Spiriva Respimat (tiotropium 2 puff INH PRN 02/02/17 02/16/17 History bromide) 2.5 mcg/actuation, inhalation indapamide 1.25 mg tablet 1.25 mg PO .QD 90 Days tab 02/02/17 02/16/17 History Cholecalciferol [Vit. D-3] 1,000 unit PO DAILY 02/16/17 02/16/17 History Potassium Chloride 20 meq PO DAILY 02/16/17 02/16/17 History Allergies Allergy/AdvReac Type Severity Reaction Status Date / Time No Known Allergies Allergy Verified 02/16/17 12:42 Orthopedic Exam Vital signs: Temperature 95.8 F L 02/17/17 07:53 Pulse Rate 82 02/17/17 08:00 Respiratory Rate 22 02/17/17 07:53 Blood Pressure 94/53 02/17/17 07:53 Pulse Oximetry 93 02/17/17 07:53 - Constitutional General Appearance: Present: no acute distress, well developed, well nourished - Respiratory Exam Present: non-labored - Cardiovascular Exam Capillary Refill: < 2-3 Seconds Comments: Unable to palpate a dorsalis pedis pulse - Extremities Exam Present: no edema - Knee Exam right Knee Exam: Present: Varus deformity, effusion, painful ROM Comments: Flexion contracture of approximately 10 - Integumentary Exam Present: pink, warm, dry - Neurological Exam Present: intact to light touch, no deficits - Psychiatric Exam Present: alert, normal affect - Labs Result Diagrams: 02/16/17 12:53 02/16/17 12:53 - Diagnostic results Knee x-ray: image reviewed Knee CT: report reviewed, image reviewed Impression and Recommendation (1) Right knee pain Current visit: Yes Qualifiers: Chronicity: unspecified Qualified Code(s): M25.561 - Pain in right knee Status: Acute I recommended an aspiration to send for cultures and Gram stain to rule out septic arthritis. More than likely I think his pain is just from an exacerbation of his osteoarthritis. If the lab comes back negative for infection I offered him a steroid injection. I would have him weightbearing as tolerated with physical therapy. He may benefit from a brace if he feels the knee is unstable as he ambulates. Hospital Course Summary Disclaimer: The visit summary below is not to be considered part of the above Progress Note. Hospital Course: 02/16/17 Impression Community-acquired pneumonia Failed outpatient treatment Acute respiratory failure with hypoxia Right knee pain with joint effusion Hypertension Osteoarthritis Plan Admit inpatient status under the care of Dr. Garcia for community-acquired pneumonia, failed outpatient treatment with hypoxia. Blood cultures were obtained in the emergency room. Initial venous lactate was normal at 1.5. Will repeat lactate at 1700 as per sepsis protocol. Further infectious workup including sputum culture, urine culture, urine for strep pneumoniae a as well as Legionella. Patient was given Rocephin 1 gram IV in the emergency room. We will continue this daily and add oral doxycycline twice a day. Given new-onset atrial fibrillation. Will obtain echocardiogram and Cardiac consultation placed to Dr. Fowler In regards to right knee effusion. Will place orthopedic consultation to Dr. Lynn. Would like his recommendation regarding at this effusion should be tapped at this time or done in the outpatient setting following antibiotic therapy. Patient does report ongoing right knee pain that has been worse since Tuesday following his fall. Noted to have severe osteoarthritis in the knee that has been hindering his ambulation. SCDs to bilateral lower extremity for DVT prophylaxis Did discuss advanced directives with patient, and family members. At this point he would like to be a full code, however, would not want long-term life- sustaining measures also indicates that patient is having so much difficulty with ambulation due to the right knee pain as well as the weakness and debility secondary to this acute illness. She is not able to care for him safely at home. She wonders if he is possibly a candidate for IRU versus skilled at time of discharge. Orthopedic Procedures - Joint Aspiration/Injection Joint Aspiration/Injection 1 Time out performed: Yes Side of body: right Joint aspirated: knee Skin prep: Chlorhexidine Fluid obtained: bloody Patient tolerated procedure: well Complications: none
[2017-02-17] MEDS ORDERED: PNEUMOCOCCAL 13 VACCINE 0.5ml INJECTION IM ONE (10:44)
--- NOTE | 2017-02-17 14:25 | Cardiology Progress Note ---
<Ritu Smith - Last Filed: 02/18/17 14:23> Subjective Principal diagnosis: AFib Interval history: Prabhu is seen in follow up for afib. He is in his bed and his is at the bedside. He denies chest pain or pressure, palpitations, heart racing or skipping beats, dyspnea, or other complaints Exam Vital signs: Temperature 95.8 F L 02/17/17 07:53 Pulse Rate 82 02/17/17 08:00 Respiratory Rate 12 02/17/17 09:37 Blood Pressure 94/53 02/17/17 07:53 Pulse Oximetry 94 02/17/17 09:37 - Constitutional no acute distress, well nourished, cooperative - Routine HEENT Exam Head: Present: normocephalic ENT: Present: mucous membranes moist - Routine Neck Exam Absent: JVD, carotid bruit - Routine Chest/Breast/Axilla Exam Chest wall: Absent: tenderness - Routine Respiratory Exam Present: rales (bibasilar). Absent: CTA bilaterally, wheezes - Routine Cardiovascular Exam Present: no murmur (II/), irregularly irregular. Absent: JVD - Routine Abdominal Exam Present: soft, normoactive bowel sounds - Routine Extremities Exam Present: edema (right knee) - Routine Skin Exam Present: intact, erythema (right knee), dry, warm - Routine Neurological Exam Present: alert, oriented X3 - Routine Psychiatric Exam Present: normal affect, normal thought process - Additional findings Additional findings: Laboratory Results - last 48 hr 02/16/17 02/16/17 02/16/17 12:53 12:53 12:53 WBC 23.2 H RBC 4.26 L Hgb 12.6 L Hct 38.0 L MCV 89.2 MCH 29.6 MCHC 33.2 RDW Std Deviation 40.3 Plt Count 288 MPV 9.9 Immature Gran % (Auto) Not performed Neut % (Auto) Not performed Lymph % (Auto) Not performed [place] % (Auto) Not performed Eos % (Auto) Not performed Baso % (Auto) Not performed Neut # (Auto) Not performed Lymph # (Auto) Not performed [place] # (Auto) Not performed Eos # (Auto) Not performed Baso # (Auto) Not performed Abs Immat Gran (auto) Not performed Neutrophils % (Manual) 86.0 H Band Neutrophils % 1.0 Lymphocytes % (Manual) 7.0 L Monocytes % (Manual) 6.0 Neutrophils # (Manual) 20.0 H Band Neutrophils # 0.2 Lymphocytes # (Manual) 1.6 Monocytes # (Manual) 1.4 H RBC Morph Comment Normal Turbidity < 20 Sodium 137 Potassium 3.9 Chloride 98 Carbon Dioxide 29 Anion Gap 10 BUN 13.0 Creatinine 0.8 GFR Calculation 92 BUN/Creatinine Ratio 16 Glucose 118 H Calculated Osmolality 265 Calcium 8.8 Total Bilirubin 0.70 Icterus Index < 2 AST 19 ALT 32 Alkaline Phosphatase 140 H Troponin I < 0.012 B-Natriuretic Peptide 468 H Total Protein 7.2 Albumin 3.5 Globulin 3.7 H Albumin/Globulin Ratio 0.9 L Plasma Lactate 1.5 Procalcitonin 0.08 Specimen Hemolysis < 15 Ur Collection Type Urine Color Urine Clarity Urine pH Ur Specific [place] Urine Protein Urine Glucose (UA) Urine Ketones Urine Occult Blood Urine Nitrate Urine Bilirubin Urine Urobilinogen Ur Leukocyte Esterase Urine RBC Urine WBC Ur Squamous Epith Cells Urine Bacteria Ur Culture Indicated? Fluid Type Fluid Color Fluid Turbidity Fluid RBC Fld Tot Nucleated Cell Fluid Neutrophils Fluid Lymphocytes Fluid Monocytes Fluid Eosinophils Fluid Basophils Fluid Other Cells % 02/16/17 02/16/17 02/17/17 13:57 17:40 09:44 WBC RBC Hgb Hct MCV MCH MCHC RDW Std Deviation Plt Count MPV Immature Gran % (Auto) Neut % (Auto) Lymph % (Auto) [place] % (Auto) Eos % (Auto) Baso % (Auto) Neut # (Auto) Lymph # (Auto) [place] # (Auto) Eos # (Auto) Baso # (Auto) Abs Immat Gran (auto) Neutrophils % (Manual) Band Neutrophils % Lymphocytes % (Manual) Monocytes % (Manual) Neutrophils # (Manual) Band Neutrophils # Lymphocytes # (Manual) Monocytes # (Manual) RBC Morph Comment Turbidity Sodium Potassium Chloride Carbon Dioxide Anion Gap BUN Creatinine GFR Calculation BUN/Creatinine Ratio Glucose Calculated Osmolality Calcium Total Bilirubin Icterus Index AST ALT Alkaline Phosphatase Troponin I B-Natriuretic Peptide Total Protein Albumin Globulin Albumin/Globulin Ratio Plasma Lactate 1.3 Procalcitonin Specimen Hemolysis Ur Collection Type Urine, clean catch Urine Color Yellow Urine Clarity Clear Urine pH 6.5 Ur Specific [place] 1.010 L Urine Protein Trace A Urine Glucose (UA) Negative Urine Ketones Negative Urine Occult Blood 1+ A Urine Nitrate Negative Urine Bilirubin Negative Urine Urobilinogen 1.0 Ur Leukocyte Esterase 1+ A Urine RBC 3-5 H Urine WBC 10-20 H Ur Squamous Epith Cells 0-5 Urine Bacteria 3+ H Ur Culture Indicated? Cult reflexed &setup Fluid Type Synovial fluid Fluid Color Red Fluid Turbidity Cloudy Fluid RBC 11157 Fld Tot Nucleated Cell 16776 Fluid Neutrophils 93 Fluid Lymphocytes 4 Fluid Monocytes 3 Fluid Eosinophils 0 Fluid Basophils 0 Fluid Other Cells % 0 Acetaminophen (Tylenol) 500 mg PO Q4H [facility] Last Admin: 02/17/17 11:47 Dose: 500 mg Doxycycline Hyclate (Vibramycin) 100 mg PO BIDWM [facility] Last Admin: 02/17/17 08:57 Dose: 100 mg Sodium Chloride (Normal Saline) 1,000 mls @ 100 mls/hr IV .Q10H [facility] Last Admin: 02/17/17 13:20 Dose: 100 mls/hr Ceftriaxone Sodium 1 g/ Sodium (Chloride) 100 mls @ 200 mls/hr IV Q24H [facility] Levalbuterol HCl (Xopenex 1.25mg/3ml) 1.25 mg AEROSOL RTTID [facility] Last Admin: 02/17/17 09:36 Dose: 1.25 mg Metoprolol Tartrate (Lopressor) 50 mg PO BIDBS [facility] Last Admin: 02/17/17 08:57 Dose: 50 mg Ondansetron HCl (Zofran) 4 mg IVP Q6H PRN PRN Reason: Nausea &/or vomiting Polyethylene Glycol (Miralax) 17 gm PO DAILY [facility] Last Admin: 02/17/17 08:58 Dose: 17 gm Senna/Docusate Sodium (Senna Plus Tablet) 2 tab PO BID [facility] Last Admin: 02/17/17 08:57 Dose: 2 tab Sodium Chloride (Iv Flush) 10 ml IV PRN PRN PRN Reason: [place] Assessment and Plan - Assessment and Plan (1) Atrial fibrillation Status: Acute Rate controlled, asymptomatic - Will start anticoagulation when okay with Ortho - Will DCCV after 30 days anticoagulation (2) CAP (community acquired pneumonia) Status: Acute (3) HTN (hypertension) Status: Chronic (4) Right knee pain Status: Acute (5) Osteoarthritis Status: Acute Hospital Course Summary Disclaimer: The visit summary below is not to be considered part of the above Progress Note. Hospital Course: 02/16/17 Impression Community-acquired pneumonia Failed outpatient treatment Acute respiratory failure with hypoxia Right knee pain with joint effusion Hypertension Osteoarthritis Plan Admit inpatient status under the care of Dr. Garcia for community-acquired pneumonia, failed outpatient treatment with hypoxia. Blood cultures were obtained in the emergency room. Initial venous lactate was normal at 1.5. Will repeat lactate at 1700 as per sepsis protocol. Further infectious workup including sputum culture, urine culture, urine for strep pneumoniae a as well as Legionella. Patient was given Rocephin 1 gram IV in the emergency room. We will continue this daily and add oral doxycycline twice a day. Given new-onset atrial fibrillation. Will obtain echocardiogram and Cardiac consultation placed to Dr. Fowler In regards to right knee effusion. Will place orthopedic consultation to Dr. Lynn. Would like his recommendation regarding at this effusion should be tapped at this time or done in the outpatient setting following antibiotic therapy. Patient does report ongoing right knee pain that has been worse since Tuesday following his fall. Noted to have severe osteoarthritis in the knee that has been hindering his ambulation. SCDs to bilateral lower extremity for DVT prophylaxis Did discuss advanced directives with patient, and family members. At this point he would like to be a full code, however, would not want long-term life- sustaining measures also indicates that patient is having so much difficulty with ambulation due to the right knee pain as well as the weakness and debility secondary to this acute illness. She is not able to care for him safely at home. She wonders if he is possibly a candidate for IRU versus skilled at time of discharge. 02/16/17 Cardiology A FIB: New onset. No prior documentation of A-fib. Pt denies symptoms therefore unknown onset. He was admitted in A-fib. - - Restart his metoprolol 50mg BID. He took it this am. - Hold other BP meds as his BP is ok now and will allow us to increased BB or add CCB for Heart rate control. - No anticoagulation at this time since orthopedics has been consulted and may drain knee effusion. - HR controlled at 90's to 100's. - If he becomes unstable or symptomatic, consider MICHELLE/ DCCV to rule out clot and convert to SR. - After effusion drained or not going to be drained, then start anticoagulant for stroke prevention. CAP (community acquired pneumonia) Treatment with ABX per Dr. Garcia. slight fever, receiving scheduled tylenol for knee pain. HTN (hypertension) - BP and HR are good. - Cont metoprolol 50mg BID for HR control. - Hold other BP meds to allow to increase BB or CCB if needed. Right knee pain Dr. Lynn has been consulted to determine if he will drain effusion. <Duarte Fowler - Last Filed: 02/22/17 08:27> Exam Vital signs: Temperature 97.5 F 02/21/17 16:00 Pulse Rate 89 02/21/17 16:00 Respiratory Rate 18 02/21/17 16:00 Blood Pressure 136/77 02/21/17 16:00 Pulse Oximetry 96 02/21/17 16:00 Assessment and Plan - Assessment and Plan (1) CAP (community acquired pneumonia) Status: Acute (2) Atrial fibrillation Status: Acute (3) HTN (hypertension) Status: Chronic (4) Right knee pain Status: Acute (5) Osteoarthritis Status: Acute - Attestation Attestation Narrative: 02/22/17 08:27 Recommendation After examining the patient I agree with the above assessment. I am involved in the formulation of the patient's plan of care. Hospital Course Summary Disclaimer: The visit summary below is not to be considered part of the above Progress Note.
[2017-02-17] MEDS: CEFTRIAXONE 1 G in NS 100 ML IV SCH (14:31)
--- NOTE | 2017-02-17 15:54 | Progress Note ---
<Hortensia Pantoja V - Last Filed: 02/17/17 15:48> - Date 02/17/17 Subjective: Nick is seen this afternoon. Follow-up will resting in bed with at his bedside. He continues to require 2 liters of oxygen for adequate saturation. He reports feeling mildly short of breath with productive cough. Overall, he feels improved from yesterday. Denies chest pain or abdominal pain. He does continue to have right knee pain. Appetite is good. Objective Vital signs: Temperature 95.8 F L 02/17/17 07:53 Pulse Rate 84 02/17/17 15:25 Respiratory Rate 18 02/17/17 15:11 Blood Pressure 94/53 02/17/17 07:53 Pulse Oximetry 95 02/17/17 15:11 Height/Weight/BMI: Height 1.75 m Weight 91.8 kg Body Mass Index 29.7 - Constitutional Present: no acute distress, well nourished, well developed - Routine HEENT Exam Eye: Present: EOMI ENT: Present: mucous membranes moist, dentition normal - Routine Respiratory Exam Present: diminished air movement (Bases). Absent: wheezes - Routine Cardiovascular Exam Present: RRR, S1, S2. Absent: murmur - Routine Abdominal Exam Present: soft, normoactive bowel sounds, non distended. Absent: tenderness - Routine Extremities Exam Present: full ROM, normal capillary refill - Routine Skin Exam Present: intact, dry, warm - Routine Neurological Exam Present: alert, oriented X3, CN II-XII intact - Routine Lymphatic Exam Lymphatic: Absent: adenopathy - Routine Psychiatric Exam Present: normal affect, cooperative Results - Labs CBC & Chem 7: 02/16/17 12:53 02/16/17 12:53 Microbiology Results: Microbiology 02/17/17 09:44 Aspirate, Right Knee Gram Stain - Final 02/17/17 09:44 Aspirate, Right Knee Body Fluid Culture - Preliminary Culture Initiated - Results Pending 02/17/17 10:20 Sputum, Expectorated Gram Stain - Final 02/17/17 10:20 Sputum, Expectorated Sputum Culture - Preliminary Culture Initiated - Results Pending Assessment and Plan (1) CAP (community acquired pneumonia) Current visit: Yes Status: Acute (2) Failure of outpatient treatment Current visit: Yes Status: Acute Assessment and Plan: Impression Community-acquired pneumonia Failed outpatient treatment A-fibulation Acute respiratory failure with hypoxia Right knee pain with joint effusion Hypertension Osteoarthritis Plan Appreciate orthopedic consultation. Joint aspiration performed by Dr Lynn, synovial lab pending. Awaiting for those results, will then initiate anticoagulation. No surgical procedures planned. Consultation by Dr. Fowler reveals rate controlled atrial fibrillation. Continue on Lopressor 50 twice a day. Once patient is on 30 days of anticoagulation. He will follow with Dr. Fowler for cardioversion. Continue Rocephin and doxycycline for treatment of pneumonia. Currently, blood cultures are negative, sputum culture pending Will continue to work on weaning down oxygen as able. Tylenol as needed for knee pain MiraLAX and senna for bowel motivation Recheck CBC and BMP tomorrow to follow blood counts, renal function, electrolytes Once patient is more medically stable. Will consult PT and OT for strengthening. Hospital Course Summary Disclaimer: The visit summary below is not to be considered part of the above Progress Note. Hospital Course: 02/16/17 Impression Community-acquired pneumonia Failed outpatient treatment Acute respiratory failure with hypoxia Right knee pain with joint effusion Hypertension Osteoarthritis Plan Admit inpatient status under the care of Dr. Garcia for community-acquired pneumonia, failed outpatient treatment with hypoxia. Blood cultures were obtained in the emergency room. Initial venous lactate was normal at 1.5. Will repeat lactate at 1700 as per sepsis protocol. Further infectious workup including sputum culture, urine culture, urine for strep pneumoniae a as well as Legionella. Patient was given Rocephin 1 gram IV in the emergency room. We will continue this daily and add oral doxycycline twice a day. Given new-onset atrial fibrillation. Will obtain echocardiogram and Cardiac consultation placed to Dr. Fowler In regards to right knee effusion. Will place orthopedic consultation to Dr. Lynn. Would like his recommendation regarding at this effusion should be tapped at this time or done in the outpatient setting following antibiotic therapy. Patient does report ongoing right knee pain that has been worse since Tuesday following his fall. Noted to have severe osteoarthritis in the knee that has been hindering his ambulation. SCDs to bilateral lower extremity for DVT prophylaxis Did discuss advanced directives with patient, and family members. At this point he would like to be a full code, however, would not want long-term life- sustaining measures also indicates that patient is having so much difficulty with ambulation due to the right knee pain as well as the weakness and debility secondary to this acute illness. She is not able to care for him safely at home. She wonders if he is possibly a candidate for IRU versus skilled at time of discharge. 02/16/17 Cardiology A FIB: New onset. No prior documentation of A-fib. Pt denies symptoms therefore unknown onset. He was admitted in A-fib. - - Restart his metoprolol 50mg BID. He took it this am. - Hold other BP meds as his BP is ok now and will allow us to increased BB or add CCB for Heart rate control. - No anticoagulation at this time since orthopedics has been consulted and may drain knee effusion. - HR controlled at 90's to 100's. - If he becomes unstable or symptomatic, consider MICHELLE/ DCCV to rule out clot and convert to SR. - After effusion drained or not going to be drained, then start anticoagulant for stroke prevention. CAP (community acquired pneumonia) Treatment with ABX per Dr. Garcia. slight fever, receiving scheduled tylenol for knee pain. HTN (hypertension) - BP and HR are good. - Cont metoprolol 50mg BID for HR control. - Hold other BP meds to allow to increase BB or CCB if needed. 02/17- Plan- Hospitalist Appreciate orthopedic consultation. Joint aspiration performed by Dr Lynn, synovial lab pending. Awaiting for those results, will then initiate anticoagulation. No surgical procedures planned. Consultation by Dr. Fowler reveals rate controlled atrial fibrillation. Continue on Lopressor 50 twice a day. Once patient is on 30 days of anticoagulation. He will follow with Dr. Fowler for cardioversion. Continue Rocephin and doxycycline for treatment of pneumonia. Currently, blood cultures are negative, sputum culture pending Will continue to work on weaning down oxygen as able. Tylenol as needed for knee pain MiraLAX and senna for bowel motivation Recheck CBC and BMP tomorrow to follow blood counts, renal function, electrolytes Once patient is more medically stable. Will consult PT and OT for strengthening. <Ariella Garcia - Last Filed: 02/17/17 17:35> - Date 02/17/17 Objective Vital signs: Temperature 97.6 F 02/17/17 15:00 Pulse Rate 81 02/17/17 16:00 Respiratory Rate 16 02/17/17 16:00 Blood Pressure 126/64 02/17/17 16:00 Pulse Oximetry 94 02/17/17 16:00 Height/Weight/BMI: Height 5 ft 9 in Weight 202 lb 6.15 oz Body Mass Index 29.7 Results - Labs CBC & Chem 7: 02/16/17 12:53 02/16/17 12:53 Microbiology Results: Microbiology 02/17/17 09:44 Aspirate, Right Knee Gram Stain - Final 02/17/17 09:44 Aspirate, Right Knee Body Fluid Culture - Preliminary Culture Initiated - Results Pending 02/17/17 10:20 Sputum, Expectorated Gram Stain - Final 02/17/17 10:20 Sputum, Expectorated Sputum Culture - Preliminary Culture Initiated - Results Pending Assessment and Plan (1) CAP (community acquired pneumonia) Current visit: Yes Status: Acute (2) Failure of outpatient treatment Current visit: Yes Status: Acute Assessment and Plan: I have independently evaluated and examined this patient. I reviewed the chart, the patient's history, and the [employer]/PA's documented findings as above. We discussed and formulated the assessment and plan as above with additions as below. The patient was seen 1720 at with at bedside. The patient reports doing well and slept well during the night. Denies fevers, chills, sweats. Denies sore throat, shortness of breath, dyspnea on exertion, he continues to have a cough with yellow sputum production, chest pain. In general, the patient is alert and oriented 3, cooperative with exam, and in no respiratory distress. HEENT: Head is atraumatic, normocephalic, no conjunctival petechiae, no oral thrush, mucous membranes are moist and pink. Lungs: Clear to auscultation without wheezes, crackles or rhonchi CV:occ irregular without murmur Abdomen: Soft, nontender, bowel sounds are present, there is no guarding no rebound. Extremities: No clubbing, no cyanosis, no edema. Right knee fullness without erythema or warmth Skin: Warm and dry no sign of rash Neuro: Patient is alert Plan: Agree with above. Appreciate Dr. Tinoco and Dr. Lynn input. Discussed with both earlier. Will check chest x-ray in the morning. Hospital Course Summary Disclaimer: The visit summary below is not to be considered part of the above Progress Note.
[2017-02-17] MEDS ORDERED: NS IV ONE (16:30)
[2017-02-17] MEDS ORDERED: CEFTRIAXONE IV ONE (16:30)
[2017-02-17] MEDS: HYDROCODONE/APAP 5mg/325mg TABLET PO PRN (20:00)
[2017-02-18] MEDS: ACETAMINOPHEN 500 MG TABLET PO SCH ×6 (00:34→17:56)
[2017-02-18] MEDS: NS 1,000 ML IV SCH ×2 (02:30→15:31)
--- NOTE | 2017-02-18 07:29 | Echocardiogram ---
DATE OF PROCEDURE March 19, [address] Faby Burt This is a two-dimensional echo with spectral Doppler, color-flow and M-mode. It was obtained in a patient with new-onset atrial fibrillation. This is a technically difficult study. Left atrial dimension is normal. Left ventricle end-diastolic dimension is normal. Left ventricle wall thickness is normal. LV systolic function is normal with ejection fraction of 64%. Right atrium is normal. Right ventricle is normal. Aortic root dimension is normal. Mitral valve annulus is calcified. Mitral valve leaflets are normal. Aortic valve shows fibrocalcific changes with no stenosis or insufficiency. Tricuspid valve shows mild tricuspid regurgitation with normal estimated pulmonary artery systolic pressure of 27. Pulmonary valve shows no pulmonary insufficiency. There is no pericardial effusion. IMPRESSION 1. Normal LV systolic function with ejection fraction of 64%. 2. Technically difficult study. 3. Mitral annulus calcification. 4. Aortic sclerosis. 5. Mild tricuspid regurgitation with normal estimated pulmonary artery systolic pressure of 27. MTDD
--- NOTE | 2017-02-18 08:52 | XRay Report ---
INDICATION: LL pneumonia PROCEDURE: CHEST 2-VIEWS UPRIGHT (PA & LAT) Encounter: Initial COMPARISON: February 16, 2017 FINDINGS: Motion artifact. Continued airspace disease in the left midlung and lower lobe. Right lung is stable and grossly clear. New small pleural effusions. No pneumothorax. Heart size and mediastinal contours are stable. Pulmonary vascularity is unchanged. Impression: Continued left lower lobe pneumonia with new small effusions. .
[2017-02-18] MEDS: SENNA + DOCUSATE TABLET PO SCH (09:03)
[2017-02-18] MEDS: POLYETHYL GLYCOL 3350 17gm PACKET PO SCH (09:04)
[2017-02-18] MEDS ORDERED: LR 1,000 ML IV SCH (11:15)
[2017-02-18] MEDS ORDERED: BUPIVACAINE 0.25% (2.5mg/ml) PF 30ml INJECTION ONE (11:38)
--- NOTE | 2017-02-18 11:38 | Orthopedic Progress Note ---
Date: Subjective/Severity of Illness: Mr. Ramires has no new concerns today. He continues to have right knee pain. Orthopedic Objective Vital signs: Temperature 98.1 F 02/18/17 10:42 Pulse Rate 74 02/18/17 10:42 Respiratory Rate 22 02/18/17 10:42 Blood Pressure 125/60 02/18/17 10:42 Pulse Oximetry 91 02/18/17 10:42 Height and Weight: Height 5 ft 9 in Weight 94.3 kg Body Mass Index 29.7 - Constitutional General Appearance: Present: no acute distress, well developed, well nourished - Respiratory Exam Present: non-labored - Cardiovascular Exam Capillary Refill: < 2-3 Seconds - Extremities Exam Present: edema (right knee) - Knee Exam right Knee Exam: Present: Varus deformity, effusion, painful ROM - Integumentary Exam Present: pink, warm, dry - Lymphatic Lymphatic: Absent: adenopathy - Neurological Exam Present: intact to light touch, no deficits - Labs Result Diagrams: 02/18/17 04:06 02/18/17 04:07 Abnormal lab results 02/17/17 02/18/17 02/18/17 Range/Units 09:44 04:06 04:07 WBC 12.0 H D (4.5-11.0) T/MM3 RBC 3.59 L (4.50-5.90) M/MM3 Hgb 10.5 L D (13.5-17.5) GM/DL Hct 32.0 L D (41-53) % Neutrophils % (Manual) 85.0 H (33-66) % Lymphocytes % (Manual) 6.0 L (23-45) % Neutrophils # (Manual) 10.2 H (1.8-7.7) T/MM3 Lymphocytes # (Manual) 0.7 L (1-4.8) T/MM3 Potassium 3.4 L (3.6-5) MEQ/L Creatinine 0.7 L (0.8-1.5) MG/DL Calcium 8.2 L (8.4-10.2) MG/DL Fluid Crystal Quantity Rare A Fluid Crystal Appear Bloody A Fluid Crystal Color Red A Synov Intracell Crystal Both A Synovial Crystal Type Ca pyrophosphat A H & H 02/18/17 Range/Units 04:06 Hgb 10.5 L D (13.5-17.5) GM/DL Hct 32.0 L D (41-53) % Orthopedic Assessment and Plan (1) Right knee pain Status: Acute Qualifiers: Chronicity: unspecified Qualified Code(s): M25.561 - Pain in right knee (2) Septic arthritis of knee, right Status: Acute Qualifiers: Septic arthritis organism: due to unspecified organism Qualified Code(s): M00.9 - Pyogenic arthritis, unspecified Assessment and Plan: Given his aspirate results with a high cell count and neutrophil percentage and the fact that he's been on antibiotics for 5 days with these results suggest that the knee is likely infected. I discussed this with Dr. Garcia and she agrees. For this reason I did recommend I with endoscopic irrigation debridement and continued IV antibiotics per Dr. Garcia. He treated this plan and surgery will be later this morning. I discussed the possibility he'll need a second surgery before the infection is controlled. Hospital Course Summary Disclaimer: The visit summary below is not to be considered part of the above Progress Note. Hospital Course: 02/16/17 Impression Community-acquired pneumonia Failed outpatient treatment Acute respiratory failure with hypoxia Right knee pain with joint effusion Hypertension Osteoarthritis Plan Admit inpatient status under the care of Dr. Garcia for community-acquired pneumonia, failed outpatient treatment with hypoxia. Blood cultures were obtained in the emergency room. Initial venous lactate was normal at 1.5. Will repeat lactate at 1700 as per sepsis protocol. Further infectious workup including sputum culture, urine culture, urine for strep pneumoniae a as well as Legionella. Patient was given Rocephin 1 gram IV in the emergency room. We will continue this daily and add oral doxycycline twice a day. Given new-onset atrial fibrillation. Will obtain echocardiogram and Cardiac consultation placed to Dr. Fowler In regards to right knee effusion. Will place orthopedic consultation to Dr. Lynn. Would like his recommendation regarding at this effusion should be tapped at this time or done in the outpatient setting following antibiotic therapy. Patient does report ongoing right knee pain that has been worse since Tuesday following his fall. Noted to have severe osteoarthritis in the knee that has been hindering his ambulation. SCDs to bilateral lower extremity for DVT prophylaxis Did discuss advanced directives with patient, and family members. At this point he would like to be a full code, however, would not want long-term life- sustaining measures also indicates that patient is having so much difficulty with ambulation due to the right knee pain as well as the weakness and debility secondary to this acute illness. She is not able to care for him safely at home. She wonders if he is possibly a candidate for IRU versus skilled at time of discharge. 02/16/17 Cardiology A FIB: New onset. No prior documentation of A-fib. Pt denies symptoms therefore unknown onset. He was admitted in A-fib. - - Restart his metoprolol 50mg BID. He took it this am. - Hold other BP meds as his BP is ok now and will allow us to increased BB or add CCB for Heart rate control. - No anticoagulation at this time since orthopedics has been consulted and may drain knee effusion. - HR controlled at 90's to 100's. - If he becomes unstable or symptomatic, consider MICHELLE/ DCCV to rule out clot and convert to SR. - After effusion drained or not going to be drained, then start anticoagulant for stroke prevention. CAP (community acquired pneumonia) Treatment with ABX per Dr. Garcia. slight fever, receiving scheduled tylenol for knee pain. HTN (hypertension) - BP and HR are good. - Cont metoprolol 50mg BID for HR control. - Hold other BP meds to allow to increase BB or CCB if needed. Right knee pain Dr. Lynn has been consulted to determine if he will drain effusion.
[2017-02-18] MEDS ORDERED: MEPERIDINE 100 MG/ML INJECTION ONE (11:39)
--- NOTE | 2017-02-18 11:46 | Anesthesia Preoperative Report ---
Anesthesia Preoperative Record - Date and Time Date: 02/18/17 Preoperative Diagnosis: pneumonia NPO Since Date: 02/17/17 NPO Since Time: 00:00 (sips of water to take pill at 9 am) Allergies/Adverse Reactions: Allergies Allergy/AdvReac Type Severity Reaction Status Date / Time No Known Allergies Allergy Verified 02/16/17 12:42 - Vital Signs Vital Signs: Temperature 98.1 F 02/18/17 10:42 Pulse Rate 74 02/18/17 10:42 Respiratory Rate 22 02/18/17 10:42 Blood Pressure 125/60 02/18/17 10:42 Pulse Oximetry 91 02/18/17 10:42 Height and Weight: Height 1.75 m Weight 94.3 kg Body Mass Index 29.7 - Medications Inpatient Medications: Current Medications Acetaminophen (Tylenol) 500 mg PO Q4H [facility] Last Admin: 02/18/17 09:04 Dose: 500 mg Hydrocodone Bitart/Acetaminophen (Nabb 5/325) 1 tab PO Q4H PRN PRN Reason: Pain Last Admin: 02/17/17 20:00 Dose: 1 tab Doxycycline Hyclate (Vibramycin) 100 mg PO BIDWM [facility] Last Admin: 02/18/17 09:03 Dose: 100 mg Sodium Chloride (Normal Saline) 1,000 mls @ 100 mls/hr IV .Q10H [facility] Last Infusion: 02/18/17 10:30 Dose: 0 mls/hr Ceftriaxone Sodium 1 g/ Sodium (Chloride) 100 mls @ 200 mls/hr IV Q24H [facility] Last Infusion: 02/17/17 16:20 Dose: Infused Lactated Ringer's (Lactated Ringers) 1,000 mls @ 50 mls/hr IV .Q20H [facility] Last Admin: 02/18/17 11:04 Dose: 50 mls/hr Levalbuterol HCl (Xopenex 1.25mg/3ml) 1.25 mg AEROSOL RTTID [facility] Last Admin: 02/18/17 09:40 Dose: 1.25 mg Metoprolol Tartrate (Lopressor) 50 mg PO BIDBS [facility] Last Admin: 02/18/17 09:03 Dose: 50 mg Ondansetron HCl (Zofran) 4 mg IVP Q6H PRN PRN Reason: Nausea &/or vomiting Polyethylene Glycol (Miralax) 17 gm PO DAILY [facility] Last Admin: 02/18/17 09:04 Dose: 17 gm Senna/Docusate Sodium (Senna Plus Tablet) 2 tab PO BID [facility] Last Admin: 02/18/17 09:03 Dose: 2 tab Sodium Chloride (Iv Flush) 10 ml IV PRN PRN PRN Reason: Flushing Home Medications: Home Medications Medication Instructions Recorded Confirmed Type Breo Ellipta (fluticasone 100 1 inh INH Q24H 02/02/17 02/16/17 History mcg-vilanterol 25 mcg/dose) powder for inhalation Cozaar (losartan) 50 mg tablet 50 mg PO .QD 90 Days tab 02/02/17 02/16/17 History Flonase (Fluticasone) 50 mcg nasal 1 spray INTRANASAL DAILY 30 Days 02/02/17 History spray #16 Lopressor (metoprolol tartrate) 50 50 mg PO BID 90 Days tab 02/02/17 02/16/17 History mg tablet Norvasc (amlodipine) 10 mg tablet 10 mg PO .QD 90 Days tab 02/02/17 02/16/17 History Spiriva Respimat (tiotropium 2 puff INH PRN 02/02/17 02/16/17 History bromide) 2.5 mcg/actuation, inhalation indapamide 1.25 mg tablet 1.25 mg PO .QD 90 Days tab 02/02/17 02/16/17 History Cholecalciferol [Vit. 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) Other History: Reports: Other (jaw bilateral pops per patient) - Surgical History HEENT Surgeries: Reports: Nose Surgery GI Surgery/Treatments: Reports: Appendectomy Musculoskeletal Surgery/Tx: Reports: Knee Arthroscopy (left knee repair), Orthopedic Surgery Anesthesia Reactions: None Hx Family Anesthesia Reaction: No History of Motion Sickness: No - Social History Smoking Status: Former smoker (Quit at age 31) Hx Chewing Tobacco Use: No Second Hand Exposure: No Substance Use Type: does not use Alcohol Intake Frequency: does not drink - Pertinent Findings Laboratory: CBC and BMP 02/18/17 04:06 02/18/17 04:07 BMP 02/18/17 04:07 Sodium 138 Potassium 3.4 L Chloride 102 Carbon Dioxide 29 BUN 11.0 Creatinine 0.7 L Glucose 99 Calcium 8.2 L EKG: Sinus Rhythm - Physical Exam Respiratory Exam: Present: wheezing, rales, bilateral breath sounds equal Cardiovascular Exam: Present: regular rate and rhythm - Airway Assessment Mallampati Score: II TMD: 3 Fingerbreadths Neck Extension: poor Teeth: chipped teeth/crowns (history of A Fib) Overall Assessment: no airway concerns - ASA ASA Score: 3 - Plan Anesthesia: General TIVA, General Inhalation Gases - Discussion Discussion: Discussed risks/options/alternatives of anesthesia and questions answered. Patient consents. Nursing pain assessment noted. Present for Discussion: family member Attestation Statement: Prior to the delivery of any anesthetic medication, I examined the patient, developed the plan, obtained the patient's consent and discussed the risk and benefits of the procedure with the patient/guardian. - Additional Information Seen by Anesthesia: Yes
[2017-02-18] MEDS ORDERED: FentaNYL 100 MCG/2 ML INJECTION ONE ×2 (11:55→12:17)
[2017-02-18] MEDS ORDERED: PROPOFOL 500 MG/50 ML VIAL IV ONE ×2 (11:55→12:20)
--- NOTE | 2017-02-18 14:26 | Cardiology Progress Note ---
<Ritu Smith - Last Filed: 02/21/17 14:59> Subjective Principal diagnosis: AFib Interval history: Prabhu is seen in follow up for afib. He underwent arthroscopy and irrigation of his knee today. He denies chest pain or pressure, palpitations, heart racing or skipping beats, dyspnea, or other complaints Exam Vital signs: Temperature 97.0 F 02/18/17 13:42 Pulse Rate 69 02/18/17 13:41 Respiratory Rate 18 02/18/17 13:41 Blood Pressure 110/43 02/18/17 13:41 Pulse Oximetry 93 02/18/17 13:41 - Constitutional no acute distress, obese, cooperative - Routine HEENT Exam Head: Present: normocephalic ENT: Present: mucous membranes moist - Routine Neck Exam Absent: JVD, carotid bruit - Routine Chest/Breast/Axilla Exam Chest wall: Absent: tenderness - Routine Respiratory Exam Present: CTA bilaterally, diminished air movement. Absent: rales, wheezes - Routine Cardiovascular Exam Present: no murmur, irregular rhythm. Absent: JVD - Routine Abdominal Exam Present: soft, normoactive bowel sounds - Routine Extremities Exam Present: edema - Routine Skin Exam Present: intact, dry, warm - Routine Neurological Exam Present: alert, oriented X3 - Routine Psychiatric Exam Present: normal affect, normal thought process - Additional findings Additional findings: Abnormal Lab Results 02/16/17 02/17/17 02/18/17 00:01 09:44 04:06 WBC 12.0 H D RBC 3.59 L Hgb 10.5 L D Hct 32.0 L D MCV 89.1 MCH 29.2 MCHC 32.8 RDW Std Deviation 39.7 Plt Count 261 MPV 10.6 Immature Gran % (Auto) Not performed Neut % (Auto) Not performed Lymph % (Auto) Not performed [place] % (Auto) Not performed Eos % (Auto) Not performed Baso % (Auto) Not performed Neut # (Auto) Not performed Lymph # (Auto) Not performed [place] # (Auto) Not performed Eos # (Auto) Not performed Baso # (Auto) Not performed Abs Immat Gran (auto) Not performed Neutrophils % (Manual) 85.0 H Band Neutrophils % 1.0 Lymphocytes % (Manual) 6.0 L Monocytes % (Manual) 5.0 Eosinophils % (Manual) 3.0 Neutrophils # (Manual) 10.2 H Band Neutrophils # 0.1 Lymphocytes # (Manual) 0.7 L Monocytes # (Manual) 0.6 Eosinophils # (Manual) 0.4 RBC Morph Comment Normal Turbidity Sodium Potassium Chloride Carbon Dioxide Anion Gap BUN Creatinine GFR Calculation BUN/Creatinine Ratio Glucose Calculated Osmolality Calcium Magnesium Icterus Index TSH 0.39 L Specimen Hemolysis Fluid Crystal Quantity Rare A Fluid Crystal Appear Bloody A Fluid Crystal Color Red A Synovial Source - Synov Intracell Crystal Both A Synovial Crystal Type Ca pyrophosphat A 02/18/17 02/18/17 04:07 04:07 WBC RBC Hgb Hct MCV MCH MCHC RDW Std Deviation Plt Count MPV Immature Gran % (Auto) Neut % (Auto) Lymph % (Auto) [place] % (Auto) Eos % (Auto) Baso % (Auto) Neut # (Auto) Lymph # (Auto) [place] # (Auto) Eos # (Auto) Baso # (Auto) Abs Immat Gran (auto) Neutrophils % (Manual) Band Neutrophils % Lymphocytes % (Manual) Monocytes % (Manual) Eosinophils % (Manual) Neutrophils # (Manual) Band Neutrophils # Lymphocytes # (Manual) Monocytes # (Manual) Eosinophils # (Manual) RBC Morph Comment Turbidity < 20 Sodium 138 Potassium 3.4 L Chloride 102 Carbon Dioxide 29 Anion Gap 7 BUN 11.0 Creatinine 0.7 L GFR Calculation 107 BUN/Creatinine Ratio 16 Glucose 99 Calculated Osmolality 265 Calcium 8.2 L Magnesium 1.7 Icterus Index < 2 TSH Specimen Hemolysis < 15 Fluid Crystal Quantity Fluid Crystal Appear Fluid Crystal Color Synovial Source Synov Intracell Crystal Synovial Crystal Type Acetaminophen (Tylenol) 500 mg PO Q4H [facility] Last Admin: 02/18/17 09:04 Dose: 500 mg Hydrocodone Bitart/Acetaminophen ([place] 5/325) 1 tab PO Q4H PRN PRN Reason: Pain Last Admin: 02/17/17 20:00 Dose: 1 tab Doxycycline Hyclate (Vibramycin) 100 mg PO BIDWM [facility]VA Last Admin: 02/18/17 09:03 Dose: 100 mg Sodium Chloride (Normal Saline) 1,000 mls @ 100 mls/hr IV .Q10H [facility] Last Infusion: 02/18/17 10:30 Dose: 0 mls/hr Ceftriaxone Sodium 1 g/ Sodium (Chloride) 100 mls @ 200 mls/hr IV Q24H [facility] Last Infusion: 02/17/17 16:20 Dose: Infused Lactated Ringer's (Lactated Ringers) 1,000 mls @ 50 mls/hr IV .Q20H [facility] Last Infusion: 02/18/17 13:38 Dose: Infused Levalbuterol HCl (Xopenex 1.25mg/3ml) 1.25 mg AEROSOL RTTID [facility] Last Admin: 02/18/17 09:40 Dose: 1.25 mg Metoprolol Tartrate (Lopressor) 50 mg PO BIDBS [facility] Last Admin: 02/18/17 09:03 Dose: 50 mg Ondansetron HCl (Zofran) 4 mg IVP Q6H PRN PRN Reason: Nausea &/or vomiting Polyethylene Glycol (Miralax) 17 gm PO DAILY [facility] Last Admin: 02/18/17 09:04 Dose: 17 gm Senna/Docusate Sodium (Senna Plus Tablet) 2 tab PO BID [facility] Last Admin: 02/18/17 09:03 Dose: 2 tab Sodium Chloride (Iv Flush) 10 ml IV PRN PRN PRN Reason: [place] Assessment and Plan - Assessment and Plan (1) Atrial fibrillation Status: Acute Controlling rate with Metoprolol. - Okay to start anticoagulation with ortho PA Vincent. Lovenox 1mg/kg SQ BID ordered. - Plan to anticoagulate 1 month before attempting DCCV (2) CAP (community acquired pneumonia) Status: Acute (3) HTN (hypertension) Status: Chronic has had some lower pressure, will give some IVF today and continue to monitor. (4) Right knee pain Status: Acute (5) Osteoarthritis Status: Acute Hospital Course Summary Disclaimer: The visit summary below is not to be considered part of the above Progress Note. Hospital Course: 02/16/17 Impression Community-acquired pneumonia Failed outpatient treatment Acute respiratory failure with hypoxia Right knee pain with joint effusion Hypertension Osteoarthritis Plan Admit inpatient status under the care of Dr. Garcia for community-acquired pneumonia, failed outpatient treatment with hypoxia. Blood cultures were obtained in the emergency room. Initial venous lactate was normal at 1.5. Will repeat lactate at 1700 as per sepsis protocol. Further infectious workup including sputum culture, urine culture, urine for strep pneumoniae a as well as Legionella. Patient was given Rocephin 1 gram IV in the emergency room. We will continue this daily and add oral doxycycline twice a day. Given new-onset atrial fibrillation. Will obtain echocardiogram and Cardiac consultation placed to Dr. Fowler In regards to right knee effusion. Will place orthopedic consultation to Dr. Lynn. Would like his recommendation regarding at this effusion should be tapped at this time or done in the outpatient setting following antibiotic therapy. Patient does report ongoing right knee pain that has been worse since Tuesday following his fall. Noted to have severe osteoarthritis in the knee that has been hindering his ambulation. SCDs to bilateral lower extremity for DVT prophylaxis Did discuss advanced directives with patient, and family members. At this point he would like to be a full code, however, would not want long-term life- sustaining measures also indicates that patient is having so much difficulty with ambulation due to the right knee pain as well as the weakness and debility secondary to this acute illness. She is not able to care for him safely at home. She wonders if he is possibly a candidate for IRU versus skilled at time of discharge. 02/16/17 Cardiology A FIB: New onset. No prior documentation of A-fib. Pt denies symptoms therefore unknown onset. He was admitted in A-fib. - - Restart his metoprolol 50mg BID. He took it this am. - Hold other BP meds as his BP is ok now and will allow us to increased BB or add CCB for Heart rate control. - No anticoagulation at this time since orthopedics has been consulted and may drain knee effusion. - HR controlled at 90's to 100's. - If he becomes unstable or symptomatic, consider MICHELLE/ DCCV to rule out clot and convert to SR. - After effusion drained or not going to be drained, then start anticoagulant for stroke prevention. CAP (community acquired pneumonia) Treatment with ABX per Dr. Garcia. slight fever, receiving scheduled tylenol for knee pain. HTN (hypertension) - BP and HR are good. - Cont metoprolol 50mg BID for HR control. - Hold other BP meds to allow to increase BB or CCB if needed. Right knee pain Dr. Lynn has been consulted to determine if he will drain effusion. <Duarte Fowler - Last Filed: 02/22/17 08:46> Exam Vital signs: Temperature 97.5 F 02/21/17 16:00 Pulse Rate 89 02/21/17 16:00 Respiratory Rate 18 02/21/17 16:00 Blood Pressure 136/77 02/21/17 16:00 Pulse Oximetry 96 02/21/17 16:00 Assessment and Plan - Assessment and Plan (1) CAP (community acquired pneumonia) Status: Acute (2) Atrial fibrillation Status: Acute (3) HTN (hypertension) Status: Chronic (4) Right knee pain Status: Acute (5) Osteoarthritis Status: Acute - Attestation Attestation Narrative: 02/22/17 08:46 Recommendation After examining the patient I agree with the above assessment. I am involved in the formulation of the patient's plan of care. Hospital Course Summary Disclaimer: The visit summary below is not to be considered part of the above Progress Note.
[2017-02-18] MEDS ORDERED: NS 1,000 ML IV SCH (15:00)
[2017-02-18] MEDS ORDERED: ENOXAPARIN 100 MG/ML INJECTION SQ SCH (15:00)
[2017-02-18] MEDS: CEFTRIAXONE 1 G in NS 100 ML IV SCH (15:12)
[2017-02-18] MEDS: ENOXAPARIN 100 MG/ML INJECTION SQ SCH (15:29)
--- NOTE | 2017-02-18 15:58 | Progress Note ---
<Mary Kay Keene - Last Filed: 02/18/17 17:02> - Date 02/18/17 Subjective: Patient seen today lying in bed. He had irrigation of the knee performed earlier today. States he is having no pain. No complaints with his breathing. Minimal cough. No concerns at this time. Objective Vital signs: Temperature 96.8 F 02/18/17 15:26 Pulse Rate 86 02/18/17 15:26 Respiratory Rate 20 02/18/17 15:26 Blood Pressure 130/59 02/18/17 15:26 Pulse Oximetry 97 02/18/17 15:26 Height/Weight/BMI: Height 1.75 m Weight 94.3 kg Body Mass Index 29.7 - Constitutional Present: no acute distress, well nourished, well developed - Routine Respiratory Exam Present: decreased breath sounds. Absent: wheezes Comments: Patient aspirated on his sandwich while I was examining him. He had a long coughing spell. Had difficulty with deep breaths following this. Pulmonary exam limited. - Routine Cardiovascular Exam Present: RRR, S1, S2. Absent: murmur - Routine Extremities Exam Present: edema, normal capillary refill Comments: Right knee wrapped with Matt wrap - Routine Skin Exam Present: dry, warm - Routine Neurological Exam Present: alert. Absent: altered mental status - Routine Lymphatic Exam Lymphatic: Absent: adenopathy - Routine Psychiatric Exam Present: normal affect, cooperative Results - Labs CBC & Chem 7: 02/18/17 04:06 02/18/17 04:07 Labs: Laboratory Tests 02/17/17 02/17/17 09:44 09:44 Fluid Type Synovial fluid Fluid Color Red Fluid Turbidity Cloudy Fluid RBC [address]209 Fld Tot Nucleated Cell 94630 Fluid Neutrophils 93 Fluid Lymphocytes 4 Fluid Monocytes 3 Fluid Eosinophils 0 Fluid Basophils 0 Fluid Other Cells % 0 Fluid Crystal Quantity Rare A Fluid Crystal Appear Bloody A Fluid Crystal Color Red A Synovial Source - Synov Intracell Crystal Both A Synovial Crystal Type Ca pyrophosphat A Microbiology Results: Microbiology 02/17/17 10:20 Sputum, Expectorated Gram Stain - Final 02/17/17 10:20 Sputum, Expectorated Sputum Culture - Preliminary Early growth 02/17/17 09:44 Aspirate, Right Knee Gram Stain - Final 02/17/17 09:44 Aspirate, Right Knee Body Fluid Culture - Preliminary No Growth After 1 Day 02/16/17 17:38 Urine Legionella Urinary Antigen - Final 02/16/17 17:38 Urine Streptococcus pneumoniae Antigen (M - Final - Imaging and Cardiology Chest x-ray Additional comments: 02/17/17 FINDINGS: Motion artifact. Continued airspace disease in the left midlung and lower lobe. Right lung is stable and grossly clear. New small pleural effusions. No pneumothorax. Heart size and mediastinal contours are stable. Pulmonary vascularity is unchanged. Impression: Continued left lower lobe pneumonia with new small effusions. Assessment and Plan (1) CAP (community acquired pneumonia) Current visit: Yes Status: Acute (2) Failure of outpatient treatment Current visit: Yes Status: Acute Assessment and Plan: Impression Community-acquired pneumonia Suspected septic arthritis vs gouty arthritis -right knee Failed outpatient treatment Hypokalemia Leukocytosis A-fibulation Acute respiratory failure with hypoxia Right knee pain with joint effusion Hypertension Osteoarthritis Plan Patient had knee irrigation earlier today. Is doing well. Cardiology started Lovenox as ortho gave the okay post surgery. Continue Rocephin and doxycycline for CAP. CBC in the a.m. to follow leukocytosis. Sputum culture is growing out gram-positive and gram-negative cocci and rods DC IV fluids as patient is taking po well. His weight is up 3 kg since admission , but suspect he had extra IV fluids with his procedure today. Consider Lasix if input and output continues to be discordant. Given his aspiration during his exam today, if he should develop new or worsening symptoms consider antibiotic coverage for anaerobes. Potassium 40 mEq 1 given today for hypokalemia. Check BMP in the morning to follow lites and renal function. Given there are crystals found on the knee aspirate, will check a uric acid level. His pain is controlled right now, likely secondary to block. Will hold off on treatment with NSAIDs or prednisone at this time. Hospital Course Summary Disclaimer: The visit summary below is not to be considered part of the above Progress Note. Hospital Course: Impression Community-acquired pneumonia Failed outpatient treatment Acute respiratory failure with hypoxia Right knee pain with joint effusion Hypertension Osteoarthritis 02/16/17-hospital admission Admit inpatient status under the care of Dr. Garcia for community-acquired pneumonia, failed outpatient treatment with hypoxia. Blood cultures were obtained in the emergency room. Initial venous lactate was normal at 1.5. Will repeat lactate at 1700 as per sepsis protocol. Further infectious workup including sputum culture, urine culture, urine for strep pneumoniae a as well as Legionella. Patient was given Rocephin 1 gram IV in the emergency room. We will continue this daily and add oral doxycycline twice a day. Given new-onset atrial fibrillation. Will obtain echocardiogram and Cardiac consultation placed to Dr. Fowler In regards to right knee effusion. Will place orthopedic consultation to Dr. Lynn. Would like his recommendation regarding at this effusion should be tapped at this time or done in the outpatient setting following antibiotic therapy. Patient does report ongoing right knee pain that has been worse since Tuesday following his fall. Noted to have severe osteoarthritis in the knee that has been hindering his ambulation. SCDs to bilateral lower extremity for DVT prophylaxis Did discuss advanced directives with patient, and family members. At this point he would like to be a full code, however, would not want long-term life- sustaining measures also indicates that patient is having so much difficulty with ambulation due to the right knee pain as well as the weakness and debility secondary to this acute illness. She is not able to care for him safely at home. She wonders if he is possibly a candidate for IRU versus skilled at time of discharge. 02/16/17 Cardiology A FIB: New onset. No prior documentation of A-fib. Pt denies symptoms therefore unknown onset. He was admitted in A-fib. - - Restart his metoprolol 50mg BID. He took it this am. - Hold other BP meds as his BP is ok now and will allow us to increased BB or add CCB for Heart rate control. - No anticoagulation at this time since orthopedics has been consulted and may drain knee effusion. - HR controlled at 90's to 100's. - If he becomes unstable or symptomatic, consider MICHELLE/ DCCV to rule out clot and convert to SR. - After effusion drained or not going to be drained, then start anticoagulant for stroke prevention. CAP (community acquired pneumonia) Treatment with ABX per Dr. Garcia. slight fever, receiving scheduled tylenol for knee pain. HTN (hypertension) - BP and HR are good. - Cont metoprolol 50mg BID for HR control. - Hold other BP meds to allow to increase BB or CCB if needed. Right knee pain Dr. Lynn has been consulted to determine if he will drain effusion. 02/17/17 Appreciate orthopedic consultation. Joint aspiration performed by Dr Lynn, synovial lab pending. Awaiting for those results, will then initiate anticoagulation. No surgical procedures planned. Consultation by Dr. Fowler reveals rate controlled atrial fibrillation. Continue on Lopressor 50 twice a day. Once patient is on 30 days of anticoagulation. He will follow with Dr. Fowler for cardioversion. Continue Rocephin and doxycycline for treatment of pneumonia. Currently, blood cultures are negative, sputum culture pending Will continue to work on weaning down oxygen as able. Tylenol as needed for knee pain MiraLAX and senna for bowel motivation Recheck CBC and BMP tomorrow to follow blood counts, renal function, electrolytes Once patient is more medically stable. Will consult PT and OT for strengthening. 02/18/17 Patient had knee irrigation earlier today. Is doing well. Cardiology started Lovenox as ortho gave the okay post surgery. Continue Rocephin and doxycycline for CAP. Sputum culture is growing out gram- positive and gram-negative cocci and rods. CBC in the a.m. DC IV fluids as patient is taking po well. His weight is up 3 kg since admission , but suspect he had extra IV fluids with his procedure today. Consider Lasix if input and output continues to be discordant. Given his aspiration during his exam today, if he should develop new or worsening symptoms consider antibiotic coverage for anaerobes. Potassium 40 mEq 1 given today for hypokalemia. Check BMP in the morning. Given there are crystals found on the knee aspirate, will check a uric acid level. His pain is controlled right now, likely secondary to block. Will hold off on treatment with NSAIDs or prednisone at this time. <Ariella Garcia - Last Filed: 02/18/17 18:19> - Date 02/18/17 Objective Vital signs: Temperature 96.4 F L 02/18/17 17:26 Pulse Rate 74 02/18/17 17:26 Respiratory Rate 18 02/18/17 17:26 Blood Pressure 121/65 02/18/17 17:26 Pulse Oximetry 96 02/18/17 17:26 Height/Weight/BMI: Height 5 ft 9 in Weight 207 lb 14.334 oz Body Mass Index 29.7 Results - Labs CBC & Chem 7: 02/18/17 04:06 02/18/17 04:07 Microbiology Results: Microbiology 02/17/17 10:20 Sputum, Expectorated Gram Stain - Final 02/17/17 10:20 Sputum, Expectorated Sputum Culture - Preliminary Early growth 02/17/17 09:44 Aspirate, Right Knee Gram Stain - Final 02/17/17 09:44 Aspirate, Right Knee Body Fluid Culture - Preliminary No Growth After 1 Day 02/16/17 17:38 Urine Legionella Urinary Antigen - Final 02/16/17 17:38 Urine Streptococcus pneumoniae Antigen (M - Final Assessment and Plan (1) CAP (community acquired pneumonia) Current visit: Yes Status: Acute (2) Failure of outpatient treatment Current visit: Yes Status: Acute Assessment and Plan: I have independently evaluated and examined this patient. I reviewed the chart, the patient's history, and the AUTO BODY PAINTER/PA's documented findings as above. We discussed and formulated the assessment and plan as above with additions as below. Patient is visiting with family at bedside. He denies any pain in his right knee at this point. In general, the patient is alert and oriented 3, cooperative with exam, and in no respiratory distress. HEENT: Head is atraumatic, normocephalic, no conjunctival petechiae, no oral thrush, mucous membranes are moist and pink. Lungs: Clear to auscultation without wheezes, crackles or rhonchi CV: Regular rate and rhythm without murmur Abdomen: Soft, nontender, bowel sounds are present, there is no guarding no rebound. Extremities: No clubbing, no cyanosis, no edema. Right knee with dressing in place. Skin: Warm and dry no sign of rash Neuro: Patient is alert Agree with plans as outlined above. Discussed with family, their questions were answered. Hospital Course Summary Disclaimer: The visit summary below is not to be considered part of the above Progress Note.
--- NOTE | 2017-02-18 16:01 | Anesthesia Postoperative Note ---
- Date and Time Date: 02/18/17 Time: 16:00 - Status Patient Participated in Evaluation: Patient Participated in Person Vital Signs: Temperature 96.8 F 02/18/17 15:26 Pulse Rate 86 02/18/17 15:26 Respiratory Rate 20 02/18/17 15:26 Blood Pressure 130/59 02/18/17 15:26 Pulse Oximetry 97 02/18/17 15:26 Respiratory Function: Airway Patent Cardiovascular Function: Regular Pulse EKG: Sinus Rhythm Mental Status: Alert and Oriented Hydration: Taking PO Fluids Complications During Recover: None Apparent - Follow-Up Instructions Instructions: Per Surgeon
[2017-02-19] MEDS: ACETAMINOPHEN 500 MG TABLET PO SCH ×7 (00:09→21:30)
[2017-02-19] MEDS: SENNA + DOCUSATE TABLET PO SCH ×3 (01:03→21:30)
[2017-02-19] MEDS: POLYETHYL GLYCOL 3350 17gm PACKET PO SCH (09:39)
[2017-02-19] MEDS: ENOXAPARIN 100 MG/ML INJECTION SQ SCH ×2 (09:42→21:30)
--- NOTE | 2017-02-19 09:49 | Operative Note ---
DATE OF OPERATION 02/18/2017 PREOPERATIVE DIAGNOSIS 1. Suspected right knee septic arthritis. 2. Osteoarthritis. POSTOPERATIVE DIAGNOSIS 1. Suspected right knee septic arthritis. 2. Osteoarthritis. PROCEDURE PERFORMED Arthroscopic irrigation and debridement, right knee. SURGEON Julius Lynn MD ANESTHESIA TIVA COMPLICATIONS None FLUIDS AND TOURNIQUET TIME Please see anesthetic records. DESCRIPTION OF PROCEDURE Mr. Ramires and his right knee were identified and marked in his hospital room. He was then brought back to the operating suite and placed supine on the operating table. He was placed under general anesthesia. The right lower extremity was placed in a leg fischer and then prepped and draped in my normal sterile fashion. Time-out was performed. Patient was not given preoperative antibiotics since he is on schedule to have antibiotics. I exsanguinated the knee and the tourniquet inflated to 250 mmHg. Standard anterior portal sites were established. Upon entering the knee, there was obvious complete loss of cartilage in the medial compartment. There were loose bodies present as well as significant osteophyte formation most notably along the inferior pole of the patella. There was also a large anvil osteophyte present in the tibia. I proceeded to debride both the torn meniscus as well as osteophytes with a shaver. A couple of osteophytes were removed with a grabber. The lateral compartment had much less arthritic changes and the meniscus seemed to be intact for the most part. A partial meniscectomy was performed to the anterior aspect of the lateral meniscus. I then moved to the notch; again, difficult to get the knee fully extended, so patellar debridement was difficult but we were able to get into the pouch to perform a synovectomy. A total of three liters was ran through the knee and all loose tissue was debrided. The knee was then drained of fluid, the instruments were removed, portal sites were closed with 3- 0 nylon. Demerol was injected into the knee. Sterile dressing was then placed. Drapes were removed. The tourniquet was let down and he was allowed to awake from general anesthesia and taken to the recovery room under the care of Anesthesia. He tolerated the procedure well and there were no complications. SHERRY
[2017-02-19] MEDS: CEFTRIAXONE 1 G in NS 100 ML IV SCH (13:47)
[2017-02-19] MEDS: SALINE FLUSH 10ml SYRINGE IV PRN ×2 (13:47→16:01)
--- NOTE | 2017-02-19 13:59 | Discharge Instructions ---
Discharge Plan - Med Rec/Dispo Referrals/Follow Up: Vincent Penn PA [Physician Melter Assistant] - 03/07/17 3:00 pm Fabián Instructions: Pneumonia (GEN) Prescriptions: No Action Potassium Chloride 20 meq PO DAILY Cholecalciferol [Vit. D-3] 1,000 unit PO DAILY Flonase (Fluticasone) 50 mcg nasal spray 1 spray INTRANASAL DAILY 30 Days #16 Cozaar (losartan) 50 mg tablet 50 mg PO .QD 90 Days tab indapamide 1.25 mg tablet 1.25 mg PO .QD 90 Days tab Lopressor (metoprolol tartrate) 50 mg tablet 50 mg PO BID 90 Days tab Spiriva Respimat (tiotropium bromide) 2.5 mcg/actuation, inhalation 2 puff INH PRN Ciloxan (ciprofloxacin) 0.3 % eye drops 1 package EACH EYE .COMPLEX #10 ml Norvasc (amlodipine) 10 mg tablet 10 mg PO .QD 90 Days tab Breo Ellipta (fluticasone 100 mcg-vilanterol 25 mcg/dose) powder for inhalation 1 inh INH Q24H
--- NOTE | 2017-02-19 14:26 | Progress Note ---
<Hortensia Pantoja V - Last Filed: 02/19/17 14:11> - Date 02/19/17 Subjective: Prabhu is seen today in follow up this afternoon while sitting up in the chair. He is currently breathing on room air. He did utilize oxygen overnight. He states that overall he feels that his breathing continues to improve. Right knee is much less swollen and he reports pain has improved. Objective Vital signs: Temperature 96.6 F L 02/19/17 12:09 Pulse Rate 76 02/19/17 12:09 Respiratory Rate 18 02/19/17 12:09 Blood Pressure 148/69 H 02/19/17 12:09 Pulse Oximetry 91 02/19/17 12:09 Height/Weight/BMI: Height 1.75 m Weight 98.3 kg Body Mass Index 29.7 - Constitutional Present: no acute distress, well nourished, well developed - Routine HEENT Exam Eye: Present: EOMI ENT: Present: mucous membranes moist, dentition normal - Routine Respiratory Exam Present: CTA bilaterally. Absent: wheezes - Routine Cardiovascular Exam Present: RRR, S1, S2. Absent: murmur - Routine Abdominal Exam Present: soft, normoactive bowel sounds, non distended. Absent: tenderness - Routine Extremities Exam Comments: Right knee pain - Routine Skin Exam Present: dry, warm - Routine Neurological Exam Present: alert, oriented X3, CN II-XII intact - Routine Lymphatic Exam Lymphatic: Absent: adenopathy - Routine Psychiatric Exam Present: normal affect Results - Labs CBC & Chem 7: 02/19/17 05:13 02/19/17 05:13 Microbiology Results: Microbiology 02/17/17 09:44 Aspirate, Right Knee Gram Stain - Final 02/17/17 09:44 Aspirate, Right Knee Body Fluid Culture - Preliminary No Growth After 2 Days 02/17/17 10:20 Sputum, Expectorated Gram Stain - Final 02/17/17 10:20 Sputum, Expectorated Sputum Culture - Final Normal Respiratory Genesis 02/16/17 17:38 Urine Legionella Urinary Antigen - Final 02/16/17 17:38 Urine Streptococcus pneumoniae Antigen (M - Final Assessment and Plan (1) CAP (community acquired pneumonia) Current visit: Yes Status: Acute (2) Failure of outpatient treatment Current visit: Yes Status: Acute Assessment and Plan: Impression Community-acquired pneumonia Suspected septic arthritis vs gouty arthritis -right knee Failed outpatient treatment Hypokalemia Leukocytosis A-fibulation Acute respiratory failure with hypoxia Right knee pain with joint effusion Hypertension Osteoarthritis Plan Overall doing well and improving Continue with scheduled nebulizers, continue to work with weaning down oxygen as he is able to be on room air during the day. Continue to cover with Rocephin and doxycycline for required pneumonia WBC count normalized today down to 9.5. Chemistry panel normal Placed consult for PT and OT to have patient up and ambulate to get stronger. Will likely need to talk with patient and prior to discharge regarding plans as they reside independently and had some concerns for safety. Did ask nursing staff to reweigh patient as this morning's weight indicates patient is up 4 kilograms from yesterday. Suspect this may be false. Hospital Course Summary Disclaimer: The visit summary below is not to be considered part of the above Progress Note. Hospital Course: Impression Community-acquired pneumonia Failed outpatient treatment Acute respiratory failure with hypoxia Right knee pain with joint effusion Hypertension Osteoarthritis 02/16/17-hospital admission Admit inpatient status under the care of Dr. Garcia for community-acquired pneumonia, failed outpatient treatment with hypoxia. Blood cultures were obtained in the emergency room. Initial venous lactate was normal at 1.5. Will repeat lactate at 1700 as per sepsis protocol. Further infectious workup including sputum culture, urine culture, urine for strep pneumoniae a as well as Legionella. Patient was given Rocephin 1 gram IV in the emergency room. We will continue this daily and add oral doxycycline twice a day. Given new-onset atrial fibrillation. Will obtain echocardiogram and Cardiac consultation placed to Dr. Fowler In regards to right knee effusion. Will place orthopedic consultation to Dr. Lynn. Would like his recommendation regarding at this effusion should be tapped at this time or done in the outpatient setting following antibiotic therapy. Patient does report ongoing right knee pain that has been worse since Tuesday following his fall. Noted to have severe osteoarthritis in the knee that has been hindering his ambulation. SCDs to bilateral lower extremity for DVT prophylaxis Did discuss advanced directives with patient, and family members. At this point he would like to be a full code, however, would not want long-term life- sustaining measures also indicates that patient is having so much difficulty with ambulation due to the right knee pain as well as the weakness and debility secondary to this acute illness. She is not able to care for him safely at home. She wonders if he is possibly a candidate for IRU versus skilled at time of discharge. 02/16/17 Cardiology A FIB: New onset. No prior documentation of A-fib. Pt denies symptoms therefore unknown onset. He was admitted in A-fib. - - Restart his metoprolol 50mg BID. He took it this am. - Hold other BP meds as his BP is ok now and will allow us to increased BB or add CCB for Heart rate control. - No anticoagulation at this time since orthopedics has been consulted and may drain knee effusion. - HR controlled at 90's to 100's. - If he becomes unstable or symptomatic, consider MICHELLE/ DCCV to rule out clot and convert to SR. - After effusion drained or not going to be drained, then start anticoagulant for stroke prevention. CAP (community acquired pneumonia) Treatment with ABX per Dr. Garcia. slight fever, receiving scheduled tylenol for knee pain. HTN (hypertension) - BP and HR are good. - Cont metoprolol 50mg BID for HR control. - Hold other BP meds to allow to increase BB or CCB if needed. Right knee pain Dr. Lynn has been consulted to determine if he will drain effusion. 02/17/17 Appreciate orthopedic consultation. Joint aspiration performed by Dr Lynn, synovial lab pending. Awaiting for those results, will then initiate anticoagulation. No surgical procedures planned. Consultation by Dr. Fowler reveals rate controlled atrial fibrillation. Continue on Lopressor 50 twice a day. Once patient is on 30 days of anticoagulation. He will follow with Dr. Fowler for cardioversion. Continue Rocephin and doxycycline for treatment of pneumonia. Currently, blood cultures are negative, sputum culture pending Will continue to work on weaning down oxygen as able. Tylenol as needed for knee pain MiraLAX and senna for bowel motivation Recheck CBC and BMP tomorrow to follow blood counts, renal function, electrolytes Once patient is more medically stable. Will consult PT and OT for strengthening. 02/18/17 Patient had knee irrigation earlier today. Is doing well. Cardiology started Lovenox as ortho gave the okay post surgery. Continue Rocephin and doxycycline for CAP. Sputum culture is growing out gram- positive and gram-negative cocci and rods. CBC in the a.m. DC IV fluids as patient is taking po well. His weight is up 3 kg since admission , but suspect he had extra IV fluids with his procedure today. Consider Lasix if input and output continues to be discordant. Given his aspiration during his exam today, if he should develop new or worsening symptoms consider antibiotic coverage for anaerobes. Potassium 40 mEq 1 given today for hypokalemia. Check BMP in the morning. Given there are crystals found on the knee aspirate, will check a uric acid level. His pain is controlled right now, likely secondary to block. Will hold off on treatment with NSAIDs or prednisone at this time. 02/19/17- Plan Overall doing well and improving Continue with scheduled nebulizers, continue to work with weaning down oxygen as he is able to be on room air during the day. Continue to cover with Rocephin and doxycycline for required pneumonia WBC count normalized today down to 9.5. Chemistry panel normal Placed consult for PT and OT to have patient up and ambulate to get stronger. Will likely need to talk with patient and prior to discharge regarding plans as they reside independently and had some concerns for safety. Did ask nursing staff to reweigh patient as this morning's weight indicates patient is up 4 kilograms from yesterday. Suspect this may be false. <Ariella Garcia - Last Filed: 02/19/17 17:13> - Date 02/19/17 Objective Vital signs: Temperature 98.4 F 02/19/17 15:43 Pulse Rate 94 02/19/17 16:06 Respiratory Rate 20 02/19/17 15:45 Blood Pressure 124/66 02/19/17 16:06 Pulse Oximetry 94 02/19/17 16:06 Height/Weight/BMI: Height 5 ft 9 in Weight 208 lb 1.862 oz Body Mass Index 29.7 Results - Labs CBC & Chem 7: 02/19/17 05:13 02/19/17 05:13 Microbiology Results: Microbiology 02/17/17 09:44 Aspirate, Right Knee Gram Stain - Final 02/17/17 09:44 Aspirate, Right Knee Body Fluid Culture - Preliminary No Growth After 2 Days 02/17/17 10:20 Sputum, Expectorated Gram Stain - Final 02/17/17 10:20 Sputum, Expectorated Sputum Culture - Final Normal Respiratory Genesis 02/16/17 17:38 Urine Legionella Urinary Antigen - Final 02/16/17 17:38 Urine Streptococcus pneumoniae Antigen (M - Final Assessment and Plan (1) CAP (community acquired pneumonia) Current visit: Yes Status: Acute (2) Failure of outpatient treatment Current visit: Yes Status: Acute Assessment and Plan: I have independently evaluated and examined this patient. I reviewed the chart, the patient's history, and the [employer]/PA's documented findings as above. We discussed and formulated the assessment and plan as above with additions as below. Patient lying quietly in bed. Denies any pain in his right knee. reports that he had an episode where his heart was beating fast but it is now slowed down again. On looking at his vital signs, his pulse was up 129 and then down to 94. Cardiology is seeing him. In general, the patient is alert and oriented 3, cooperative with exam, and in no respiratory distress. HEENT: Head is atraumatic, normocephalic, no conjunctival petechiae, no oral thrush, mucous membranes are moist and pink. Lungs: Clear to auscultation without wheezes, crackles or rhonchi CV: Regular rate and rhythm without murmur, occasional extrasystole Abdomen: Soft, nontender, bowel sounds are present, there is no guarding no rebound. Extremities: No clubbing, no cyanosis, no edema. Skin: Warm and dry no sign of rash Neuro: Patient is alert Agree with plan as outlined above. Will discontinue ceftriaxone and continue on doxycycline for a total of 7 days. At this point, as the patient's right knee is not bothering him and he is status post I&D of the area will just follow, based on Crystal examination, he does have pseudogout. Discussed with patient's . Hospital Course Summary Disclaimer: The visit summary below is not to be considered part of the above Progress Note.
[2017-02-19] MEDS ORDERED: DiltiaZEM 25 MG/5 ML INJECTION IVP ONE ×2 (15:56→20:30)
--- NOTE | 2017-02-19 17:30 | Orthopedic Progress Note ---
Date: Subjective/Severity of Illness: Mr Ramires is sitting up in his chair an appears comfortable. He reports his knee feels much better. He has not been up with therapy or nursing yet. Breathing okay. No specific complaints. Orthopedic Objective PO Vital signs: Temperature 98.4 F 02/19/17 15:43 Pulse Rate 94 02/19/17 16:06 Respiratory Rate 20 02/19/17 15:45 Blood Pressure 124/66 02/19/17 16:06 Pulse Oximetry 94 02/19/17 16:06 Height and Weight: Height 5 ft 9 in Weight 208 lb 1.862 oz Body Mass Index 29.7 - Constitutional General Appearance: Present: alert, no acute distress - Respiratory Exam Present: non-labored - Cardiovascular Exam Present: pedal pulses intact - Extremities Exam Extremities: Present: pulses intact. Absent: calf tenderness - Surgical Site Incision: sutures present, dressing intact, no drainage, other (Swelling in the knee improved.) - Integumentary Exam Present: pink, warm, dry - Neurological Exam Present: intact to light touch, no deficits - Psychiatric Exam Present: alert, normal affect - Labs Result Diagrams: 02/19/17 05:13 02/19/17 05:13 Abnormal lab results 02/19/17 02/19/17 Range/Units 05:13 05:13 RBC 3.68 L (4.50-5.90) M/MM3 Hgb 10.9 L (13.5-17.5) GM/DL Hct 32.8 L (41-53) % Neutrophils % (Manual) 96.0 H (33-66) % Lymphocytes % (Manual) 4.0 L (23-45) % Neutrophils # (Manual) 9.1 H (1.8-7.7) T/MM3 Lymphocytes # (Manual) 0.4 L (1-4.8) T/MM3 Creatinine 0.6 L (0.8-1.5) MG/DL Calcium 8.0 L (8.4-10.2) MG/DL Specimen Hemolysis 28 H (0-25) H & H 02/18/17 02/19/17 Range/Units 04:06 05:13 Hgb 10.5 L D 10.9 L (13.5-17.5) GM/DL Hct 32.0 L D 32.8 L (41-53) % Orthopedic Assessment and Plan (1) Right knee pain Status: Acute Qualifiers: Chronicity: unspecified Qualified Code(s): M25.561 - Pain in right knee Assessment and Plan: Arthroscopic lavage and debridement 02/[address] Lynn. Markedly improved today with both swelling and pain. Cont current tx. Await final cultures but may just be a flare of the knee with pseudo gout crystals found on aspirate. Pt is on antibiotics for pneumonia coverage. (2) Septic arthritis of knee, right Status: Acute Qualifiers: Septic arthritis organism: due to unspecified organism Qualified Code(s): M00.9 - Pyogenic arthritis, unspecified Assessment and Plan: Cultures negative to this point. Did have pseudo-gout crystals present on aspirate. Clinically improved. Hospital Course Summary Disclaimer: The visit summary below is not to be considered part of the above Progress Note. Hospital Course: Impression Community-acquired pneumonia Failed outpatient treatment Acute respiratory failure with hypoxia Right knee pain with joint effusion Hypertension Osteoarthritis 02/16/17-hospital admission Admit inpatient status under the care of Dr. Garcia for community-acquired pneumonia, failed outpatient treatment with hypoxia. Blood cultures were obtained in the emergency room. Initial venous lactate was normal at 1.5. Will repeat lactate at 1700 as per sepsis protocol. Further infectious workup including sputum culture, urine culture, urine for strep pneumoniae a as well as Legionella. Patient was given Rocephin 1 gram IV in the emergency room. We will continue this daily and add oral doxycycline twice a day. Given new-onset atrial fibrillation. Will obtain echocardiogram and Cardiac consultation placed to Dr. Fowler In regards to right knee effusion. Will place orthopedic consultation to Dr. Lynn. Would like his recommendation regarding at this effusion should be tapped at this time or done in the outpatient setting following antibiotic therapy. Patient does report ongoing right knee pain that has been worse since Tuesday following his fall. Noted to have severe osteoarthritis in the knee that has been hindering his ambulation. SCDs to bilateral lower extremity for DVT prophylaxis Did discuss advanced directives with patient, and family members. At this point he would like to be a full code, however, would not want long-term life- sustaining measures also indicates that patient is having so much difficulty with ambulation due to the right knee pain as well as the weakness and debility secondary to this acute illness. She is not able to care for him safely at home. She wonders if he is possibly a candidate for IRU versus skilled at time of discharge. 02/16/17 Cardiology A FIB: New onset. No prior documentation of A-fib. Pt denies symptoms therefore unknown onset. He was admitted in A-fib. - - Restart his metoprolol 50mg BID. He took it this am. - Hold other BP meds as his BP is ok now and will allow us to increased BB or add CCB for Heart rate control. - No anticoagulation at this time since orthopedics has been consulted and may drain knee effusion. - HR controlled at 90's to 100's. - If he becomes unstable or symptomatic, consider MICHELLE/ DCCV to rule out clot and convert to SR. - After effusion drained or not going to be drained, then start anticoagulant for stroke prevention. CAP (community acquired pneumonia) Treatment with ABX per Dr. Garcia. slight fever, receiving scheduled tylenol for knee pain. HTN (hypertension) - BP and HR are good. - Cont metoprolol 50mg BID for HR control. - Hold other BP meds to allow to increase BB or CCB if needed. Right knee pain Dr. Lynn has been consulted to determine if he will drain effusion. 02/17/17 Appreciate orthopedic consultation. Joint aspiration performed by Dr Lynn, synovial lab pending. Awaiting for those results, will then initiate anticoagulation. No surgical procedures planned. Consultation by Dr. Fowler reveals rate controlled atrial fibrillation. Continue on Lopressor 50 twice a day. Once patient is on 30 days of anticoagulation. He will follow with Dr. Fowler for cardioversion. Continue Rocephin and doxycycline for treatment of pneumonia. Currently, blood cultures are negative, sputum culture pending Will continue to work on weaning down oxygen as able. Tylenol as needed for knee pain MiraLAX and senna for bowel motivation Recheck CBC and BMP tomorrow to follow blood counts, renal function, electrolytes Once patient is more medically stable. Will consult PT and OT for strengthening. 02/18/17 Patient had knee irrigation earlier today. Is doing well. Cardiology started Lovenox as ortho gave the okay post surgery. Continue Rocephin and doxycycline for CAP. Sputum culture is growing out gram- positive and gram-negative cocci and rods. CBC in the a.m. DC IV fluids as patient is taking po well. His weight is up 3 kg since admission , but suspect he had extra IV fluids with his procedure today. Consider Lasix if input and output continues to be discordant. Given his aspiration during his exam today, if he should develop new or worsening symptoms consider antibiotic coverage for anaerobes. Potassium 40 mEq 1 given today for hypokalemia. Check BMP in the morning. Given there are crystals found on the knee aspirate, will check a uric acid level. His pain is controlled right now, likely secondary to block. Will hold off on treatment with NSAIDs or prednisone at this time. 02/19/17- Plan Overall doing well and improving Continue with scheduled nebulizers, continue to work with weaning down oxygen as he is able to be on room air during the day. Continue to cover with Rocephin and doxycycline for required pneumonia WBC count normalized today down to 9.5. Chemistry panel normal Placed consult for PT and OT to have patient up and ambulate to get stronger. Will likely need to talk with patient and prior to discharge regarding plans as they reside independently and had some concerns for safety. Did ask nursing staff to reweigh patient as this morning's weight indicates patient is up 4 kilograms from yesterday. Suspect this may be false.
[2017-02-19] MEDS: DiltiaZEM IR 30 MG TABLET PO SCH (22:13)
[2017-02-20] MEDS: ACETAMINOPHEN 500 MG TABLET PO SCH ×7 (00:07→23:49)
[2017-02-20] MEDS: DiltiaZEM IR 30 MG TABLET PO SCH ×4 (05:05→21:11)
[2017-02-20] MEDS: POLYETHYL GLYCOL 3350 17gm PACKET PO SCH (08:25)
[2017-02-20] MEDS: SENNA + DOCUSATE TABLET PO SCH ×2 (08:25→20:18)
[2017-02-20] MEDS: ENOXAPARIN 100 MG/ML INJECTION SQ SCH ×2 (08:25→20:18)
--- NOTE | 2017-02-20 10:25 | Progress Note ---
<Hortensia Pantoja V - Last Filed: 02/20/17 10:13> - Date 02/20/17 Subjective: Prabhu is seen today in follow up while eating breakfast. He has been on 2 liters of oxygen overnight. He reports breathing feels about the same. Margarette did feel some right knee discomfort earlier when transferring from the bed to the chair, however, feels better now that he is sitting. Denies chest pain, abdominal pain or nausea. Weight has continued to trend down and is currently at baseline admission weight. Objective Vital signs: Temperature 97.4 F 02/20/17 08:14 Pulse Rate 88 02/20/17 08:14 Respiratory Rate 18 02/20/17 08:14 Blood Pressure 146/73 H 02/20/17 08:14 Pulse Oximetry 94 02/20/17 08:14 Height/Weight/BMI: Height 1.75 m Weight 91.5 kg Body Mass Index 29.7 - Constitutional Present: no acute distress, well nourished, well developed - Routine HEENT Exam Eye: Present: EOMI ENT: Present: mucous membranes moist, dentition normal - Routine Respiratory Exam Present: CTA bilaterally. Absent: wheezes - Routine Cardiovascular Exam Present: RRR, S1, S2. Absent: murmur - Routine Abdominal Exam Present: soft, normoactive bowel sounds, non distended. Absent: tenderness - Routine Extremities Exam Present: normal capillary refill - Routine Skin Exam Present: intact, dry, warm - Routine Neurological Exam Present: alert, oriented X3, CN II-XII intact - Routine Lymphatic Exam Lymphatic: Absent: adenopathy - Routine Psychiatric Exam Present: normal affect, cooperative Results - Labs CBC & Chem 7: 02/20/17 04:18 02/20/17 04:18 Microbiology Results: Microbiology 02/17/17 09:44 Aspirate, Right Knee Gram Stain - Final 02/17/17 09:44 Aspirate, Right Knee Body Fluid Culture - Preliminary No Growth After 3 Days 02/17/17 10:20 Sputum, Expectorated Gram Stain - Final 02/17/17 10:20 Sputum, Expectorated Sputum Culture - Final Normal Respiratory Genesis 02/16/17 17:38 Urine Legionella Urinary Antigen - Final 02/16/17 17:38 Urine Streptococcus pneumoniae Antigen (M - Final Assessment and Plan (1) CAP (community acquired pneumonia) Current visit: Yes Status: Acute (2) Failure of outpatient treatment Current visit: Yes Status: Acute Assessment and Plan: Impression Community-acquired pneumonia Suspected septic arthritis vs gouty arthritis -right knee Failed outpatient treatment Hypokalemia Leukocytosis A-fibulation Acute respiratory failure with hypoxia Right knee pain with joint effusion Hypertension Osteoarthritis Plan Rocephin course completed. Continue on Doxycycline for pulmonary coverage. Right knee pain is improved. Based on synovial fluid with presence of crystals. This likely represents a pseudogout. Will continue to monitor, appreciate orthopedic consultation. Continue to work on weaning off oxygen PT and OT consulted for evaluation tomorrow. Question if patient will be strong enough to go home with his elderly . Or if he will need some skilled rehabilitation prior to returning home. Recheck CBC and BMP tomorrow morning to follow blood counts, renal function, and electro-lytes. Hospital Course Summary Disclaimer: The visit summary below is not to be considered part of the above Progress Note. Hospital Course: Impression Community-acquired pneumonia Failed outpatient treatment Acute respiratory failure with hypoxia Right knee pain with joint effusion Hypertension Osteoarthritis 02/16/17-hospital admission Admit inpatient status under the care of Dr. Garcia for community-acquired pneumonia, failed outpatient treatment with hypoxia. Blood cultures were obtained in the emergency room. Initial venous lactate was normal at 1.5. Will repeat lactate at 1700 as per sepsis protocol. Further infectious workup including sputum culture, urine culture, urine for strep pneumoniae a as well as Legionella. Patient was given Rocephin 1 gram IV in the emergency room. We will continue this daily and add oral doxycycline twice a day. Given new-onset atrial fibrillation. Will obtain echocardiogram and Cardiac consultation placed to Dr. Fowler In regards to right knee effusion. Will place orthopedic consultation to Dr. Lynn. Would like his recommendation regarding at this effusion should be tapped at this time or done in the outpatient setting following antibiotic therapy. Patient does report ongoing right knee pain that has been worse since Tuesday following his fall. Noted to have severe osteoarthritis in the knee that has been hindering his ambulation. SCDs to bilateral lower extremity for DVT prophylaxis Did discuss advanced directives with patient, and family members. At this point he would like to be a full code, however, would not want long-term life- sustaining measures also indicates that patient is having so much difficulty with ambulation due to the right knee pain as well as the weakness and debility secondary to this acute illness. She is not able to care for him safely at home. She wonders if he is possibly a candidate for IRU versus skilled at time of discharge. 02/16/17 Cardiology A FIB: New onset. No prior documentation of A-fib. Pt denies symptoms therefore unknown onset. He was admitted in A-fib. - - Restart his metoprolol 50mg BID. He took it this am. - Hold other BP meds as his BP is ok now and will allow us to increased BB or add CCB for Heart rate control. - No anticoagulation at this time since orthopedics has been consulted and may drain knee effusion. - HR controlled at 90's to 100's. - If he becomes unstable or symptomatic, consider MICHELLE/ DCCV to rule out clot and convert to SR. - After effusion drained or not going to be drained, then start anticoagulant for stroke prevention. CAP (community acquired pneumonia) Treatment with ABX per Dr. Garcia. slight fever, receiving scheduled tylenol for knee pain. HTN (hypertension) - BP and HR are good. - Cont metoprolol 50mg BID for HR control. - Hold other BP meds to allow to increase BB or CCB if needed. Right knee pain Dr. Lynn has been consulted to determine if he will drain effusion. 02/17/17 Appreciate orthopedic consultation. Joint aspiration performed by Dr Lynn, synovial lab pending. Awaiting for those results, will then initiate anticoagulation. No surgical procedures planned. Consultation by Dr. Fowler reveals rate controlled atrial fibrillation. Continue on Lopressor 50 twice a day. Once patient is on 30 days of anticoagulation. He will follow with Dr. Fowler for cardioversion. Continue Rocephin and doxycycline for treatment of pneumonia. Currently, blood cultures are negative, sputum culture pending Will continue to work on weaning down oxygen as able. Tylenol as needed for knee pain MiraLAX and senna for bowel motivation Recheck CBC and BMP tomorrow to follow blood counts, renal function, electrolytes Once patient is more medically stable. Will consult PT and OT for strengthening. 02/18/17 Patient had knee irrigation earlier today. Is doing well. Cardiology started Lovenox as ortho gave the okay post surgery. Continue Rocephin and doxycycline for CAP. Sputum culture is growing out gram- positive and gram-negative cocci and rods. CBC in the a.m. DC IV fluids as patient is taking po well. His weight is up 3 kg since admission , but suspect he had extra IV fluids with his procedure today. Consider Lasix if input and output continues to be discordant. Given his aspiration during his exam today, if he should develop new or worsening symptoms consider antibiotic coverage for anaerobes. Potassium 40 mEq 1 given today for hypokalemia. Check BMP in the morning. Given there are crystals found on the knee aspirate, will check a uric acid level. His pain is controlled right now, likely secondary to block. Will hold off on treatment with NSAIDs or prednisone at this time. 02/19/17- Plan Overall doing well and improving Continue with scheduled nebulizers, continue to work with weaning down oxygen as he is able to be on room air during the day. Continue to cover with Rocephin and doxycycline for required pneumonia WBC count normalized today down to 9.5. Chemistry panel normal Placed consult for PT and OT to have patient up and ambulate to get stronger. Will likely need to talk with patient and prior to discharge regarding plans as they reside independently and had some concerns for safety. Did ask nursing staff to reweigh patient as this morning's weight indicates patient is up 4 kilograms from yesterday. Suspect this may be false. 02/20/17 Plan Rocephin course completed. Continue on Doxycycline for pulmonary coverage. Right knee pain is improved. Based on synovial fluid with presence of crystals. This likely represents a pseudogout. Will continue to monitor, appreciate orthopedic consultation. Continue to work on weaning off oxygen PT and OT consulted for evaluation tomorrow. Question if patient will be strong enough to go home with his elderly . Or if he will need some skilled rehabilitation prior to returning home. Recheck CBC and BMP tomorrow morning to follow blood counts, renal function, and electro-lytes. <Goyo Santos - Last Filed: 02/20/17 14:07> - Date 02/20/17 Objective Vital signs: Temperature 96.8 F 02/20/17 11:49 Pulse Rate 95 02/20/17 14:00 Respiratory Rate 16 02/20/17 14:00 Blood Pressure 114/56 02/20/17 14:00 Pulse Oximetry 92 02/20/17 14:00 Height/Weight/BMI: Height 1.75 m Weight 91.5 kg Body Mass Index 29.7 Results - Labs CBC & Chem 7: 02/20/17 04:18 02/20/17 04:18 Microbiology Results: Microbiology 02/17/17 09:44 Aspirate, Right Knee Gram Stain - Final 02/17/17 09:44 Aspirate, Right Knee Body Fluid Culture - Preliminary No Growth After 3 Days 02/17/17 10:20 Sputum, Expectorated Gram Stain - Final 02/17/17 10:20 Sputum, Expectorated Sputum Culture - Final Normal Respiratory Genesis 02/16/17 17:38 Urine Legionella Urinary Antigen - Final 02/16/17 17:38 Urine Streptococcus pneumoniae Antigen (M - Final Assessment and Plan (1) CAP (community acquired pneumonia) Current visit: Yes Status: Acute (2) Failure of outpatient treatment Current visit: Yes Status: Acute Assessment and Plan: Patient was evaluated [id number]. Case discussed with Hortensia Pantoja. Plan was developed in conjunction with Hortensia Pantoja, I'm in agreement with the plan. Patient sitting in chair, resting. Continues to have pain and right knee. Poor appetite. Lungs are clear to auscultation, cardiac regular rhythm with no murmur heard. Plan Rocephin course completed. Continue on Doxycycline for pulmonary coverage. Right knee pain is improved. Based on synovial fluid with presence of crystals. This likely represents a pseudogout. Will continue to monitor, appreciate orthopedic consultation. Continue to work on weaning off oxygen PT and OT consulted for evaluation tomorrow. Question if patient will be strong enough to go home with his elderly . Or if he will need some skilled rehabilitation prior to returning home. Recheck CBC and BMP tomorrow morning to follow blood counts, renal function, and electro-lytes. Goyo Santos M.D. [facility] Course Summary Disclaimer: The visit summary below is not to be considered part of the above Progress Note.
[2017-02-21] MEDS: DiltiaZEM IR 30 MG TABLET PO SCH ×2 (04:32→10:23)
[2017-02-21] MEDS: ACETAMINOPHEN 500 MG TABLET PO SCH ×4 (04:33→16:56)
[2017-02-21] MEDS: SALINE FLUSH 10ml SYRINGE IV PRN (04:33)
[2017-02-21] MEDS: ENOXAPARIN 100 MG/ML INJECTION SQ SCH (08:41)
[2017-02-21] MEDS: SENNA + DOCUSATE TABLET PO SCH (08:41)
[2017-02-21] MEDS: POLYETHYL GLYCOL 3350 17gm PACKET PO SCH (08:42)
--- NOTE | 2017-02-21 13:36 | Progress Note ---
<Hortensia Pantoja V - Last Filed: 02/21/17 14:49> - Date 02/21/17 Subjective: Prabhu is seen and examined today with at his side. He is up in the chair and breathing on room air. States that overall he is feeling better. He did notice his right knee hurt when he was up ambulating earlier today. However, pain improves at rest. He does inquire about stronger pain medication than Tylenol as needed. Denies chest pain, or palpations. Telemetry revels rate controlled A-fib. Objective Vital signs: Temperature 98.6 F 02/21/17 07:41 Pulse Rate 89 02/21/17 08:00 Respiratory Rate 20 02/21/17 09:15 Blood Pressure 158/82 H 02/21/17 07:41 Pulse Oximetry 94 02/21/17 09:15 Rhythm: Atrial Fibrillation with Normal Ventricular Rate Height/Weight/BMI: Height 1.75 m Weight 92.1 kg Body Mass Index 29.7 - Constitutional Present: no acute distress, well nourished, well developed - Routine HEENT Exam Eye: Present: EOMI ENT: Present: mucous membranes moist, dentition normal - Routine Respiratory Exam Present: diminished air movement (diminished bases). Absent: wheezes - Routine Cardiovascular Exam Present: S1, S2, irregular rhythm. Absent: murmur - Routine Abdominal Exam Present: soft, normoactive bowel sounds, non distended. Absent: tenderness - Routine Extremities Exam Comments: Right knee tenderness. No evidence of swelling or erythema - Routine Skin Exam Present: intact, dry, warm - Routine Neurological Exam Present: alert, oriented X3, CN II-XII intact - Routine Lymphatic Exam Lymphatic: Absent: adenopathy - Routine Psychiatric Exam Present: normal affect, cooperative Results - Labs CBC & Chem 7: 02/21/17 04:26 02/21/17 04:26 Microbiology Results: Microbiology 02/17/17 09:44 Aspirate, Right Knee Gram Stain - Final 02/17/17 09:44 Aspirate, Right Knee Body Fluid Culture - Preliminary No Growth After 4 Days 02/17/17 10:20 Sputum, Expectorated Gram Stain - Final 02/17/17 10:20 Sputum, Expectorated Sputum Culture - Final Normal Respiratory Genesis 02/16/17 17:38 Urine Legionella Urinary Antigen - Final 02/16/17 17:38 Urine Streptococcus pneumoniae Antigen (M - Final Assessment and Plan (1) CAP (community acquired pneumonia) Current visit: Yes Status: Acute (2) Failure of outpatient treatment Current visit: Yes Status: Acute Assessment and Plan: Impression Community-acquired pneumonia Suspected septic arthritis vs gouty arthritis -right knee Failed outpatient treatment Hypokalemia Leukocytosis A-fibulation Acute respiratory failure with hypoxia Right knee pain with joint effusion Hypertension Osteoarthritis Plan Rocephin course completed. Continue on Doxycycline for pulmonary coverage. Continue scheduled breathing treatments and weaning off oxygen. Currently on room air. In today to monitor right knee pain. Encourage patient to utilize [place] for more severe pain. Her for evidence of erythema or increased swelling. Recent synovial fluid revealed presence of crystals likely representing pseudogout. Continue to work with PT and OT for ongoing strengthening. Labs reviewed Awaiting on discharge plan patient will likely go to IRU versus SNU Hospital Course Summary Disclaimer: The visit summary below is not to be considered part of the above Progress Note. Hospital Course: Impression Community-acquired pneumonia Failed outpatient treatment Acute respiratory failure with hypoxia Right knee pain with joint effusion Hypertension Osteoarthritis 02/16/17-hospital admission Admit inpatient status under the care of Dr. Garcia for community-acquired pneumonia, failed outpatient treatment with hypoxia. Blood cultures were obtained in the emergency room. Initial venous lactate was normal at 1.5. Will repeat lactate at 1700 as per sepsis protocol. Further infectious workup including sputum culture, urine culture, urine for strep pneumoniae a as well as Legionella. Patient was given Rocephin 1 gram IV in the emergency room. We will continue this daily and add oral doxycycline twice a day. Given new-onset atrial fibrillation. Will obtain echocardiogram and Cardiac consultation placed to Dr. Fowler In regards to right knee effusion. Will place orthopedic consultation to Dr. Lynn. Would like his recommendation regarding at this effusion should be tapped at this time or done in the outpatient setting following antibiotic therapy. Patient does report ongoing right knee pain that has been worse since Tuesday following his fall. Noted to have severe osteoarthritis in the knee that has been hindering his ambulation. SCDs to bilateral lower extremity for DVT prophylaxis Did discuss advanced directives with patient, and family members. At this point he would like to be a full code, however, would not want long-term life- sustaining measures also indicates that patient is having so much difficulty with ambulation due to the right knee pain as well as the weakness and debility secondary to this acute illness. She is not able to care for him safely at home. She wonders if he is possibly a candidate for IRU versus skilled at time of discharge. 02/16/17 Cardiology A FIB: New onset. No prior documentation of A-fib. Pt denies symptoms therefore unknown onset. He was admitted in A-fib. - - Restart his metoprolol 50mg BID. He took it this am. - Hold other BP meds as his BP is ok now and will allow us to increased BB or add CCB for Heart rate control. - No anticoagulation at this time since orthopedics has been consulted and may drain knee effusion. - HR controlled at 90's to 100's. - If he becomes unstable or symptomatic, consider MICHELLE/ DCCV to rule out clot and convert to SR. - After effusion drained or not going to be drained, then start anticoagulant for stroke prevention. CAP (community acquired pneumonia) Treatment with ABX per Dr. Garcia. slight fever, receiving scheduled tylenol for knee pain. HTN (hypertension) - BP and HR are good. - Cont metoprolol 50mg BID for HR control. - Hold other BP meds to allow to increase BB or CCB if needed. Right knee pain Dr. Lynn has been consulted to determine if he will drain effusion. 02/17/17 Appreciate orthopedic consultation. Joint aspiration performed by Dr Lynn, synovial lab pending. Awaiting for those results, will then initiate anticoagulation. No surgical procedures planned. Consultation by Dr. Fowler reveals rate controlled atrial fibrillation. Continue on Lopressor 50 twice a day. Once patient is on 30 days of anticoagulation. He will follow with Dr. Fowler for cardioversion. Continue Rocephin and doxycycline for treatment of pneumonia. Currently, blood cultures are negative, sputum culture pending Will continue to work on weaning down oxygen as able. Tylenol as needed for knee pain MiraLAX and senna for bowel motivation Recheck CBC and BMP tomorrow to follow blood counts, renal function, electrolytes Once patient is more medically stable. Will consult PT and OT for strengthening. 02/18/17 Patient had knee irrigation earlier today. Is doing well. Cardiology started Lovenox as ortho gave the okay post surgery. Continue Rocephin and doxycycline for CAP. Sputum culture is growing out gram- positive and gram-negative cocci and rods. CBC in the a.m. DC IV fluids as patient is taking po well. His weight is up 3 kg since admission , but suspect he had extra IV fluids with his procedure today. Consider Lasix if input and output continues to be discordant. Given his aspiration during his exam today, if he should develop new or worsening symptoms consider antibiotic coverage for anaerobes. Potassium 40 mEq 1 given today for hypokalemia. Check BMP in the morning. Given there are crystals found on the knee aspirate, will check a uric acid level. His pain is controlled right now, likely secondary to block. Will hold off on treatment with NSAIDs or prednisone at this time. 02/19/17- Plan Overall doing well and improving Continue with scheduled nebulizers, continue to work with weaning down oxygen as he is able to be on room air during the day. Continue to cover with Rocephin and doxycycline for required pneumonia WBC count normalized today down to 9.5. Chemistry panel normal Placed consult for PT and OT to have patient up and ambulate to get stronger. Will likely need to talk with patient and prior to discharge regarding plans as they reside independently and had some concerns for safety. Did ask nursing staff to reweigh patient as this morning's weight indicates patient is up 4 kilograms from yesterday. Suspect this may be false. 02/20/17 Plan Rocephin course completed. Continue on Doxycycline for pulmonary coverage. Right knee pain is improved. Based on synovial fluid with presence of crystals. This likely represents a pseudogout. Will continue to monitor, appreciate orthopedic consultation. Continue to work on weaning off oxygen PT and OT consulted for evaluation tomorrow. Question if patient will be strong enough to go home with his elderly . Or if he will need some skilled rehabilitation prior to returning home. Recheck CBC and BMP tomorrow morning to follow blood counts, renal function, and electro-lytes. 02/21/17 Plan Rocephin course completed. Continue on Doxycycline for pulmonary coverage. Continue scheduled breathing treatments and weaning off oxygen. Currently on room air. In today to monitor right knee pain. Encourage patient to utilize [place] for more severe pain. Her for evidence of erythema or increased swelling. Recent synovial fluid revealed presence of crystals likely representing pseudogout. Continue to work with PT and OT for ongoing strengthening. Labs reviewed Awaiting on discharge plan patient will likely go to IRU versus SNU <Faizan Antonio D - Last Filed: 02/21/17 16:17> - Date 02/21/17 Objective Vital signs: Temperature 98.6 F 02/21/17 07:41 Pulse Rate 89 02/21/17 08:00 Respiratory Rate 16 02/21/17 15:19 Blood Pressure 158/82 H 02/21/17 07:41 Pulse Oximetry 94 02/21/17 09:15 Height/Weight/BMI: Height 1.75 m Weight 92.1 kg Body Mass Index 29.7 Results - Labs CBC & Chem 7: 02/21/17 04:26 02/21/17 04:26 Microbiology Results: Microbiology 02/17/17 09:44 Aspirate, Right Knee Gram Stain - Final 02/17/17 09:44 Aspirate, Right Knee Body Fluid Culture - Preliminary No Growth After 4 Days 02/17/17 10:20 Sputum, Expectorated Gram Stain - Final 02/17/17 10:20 Sputum, Expectorated Sputum Culture - Final Normal Respiratory Genesis 02/16/17 17:38 Urine Legionella Urinary Antigen - Final 02/16/17 17:38 Urine Streptococcus pneumoniae Antigen (M - Final Assessment and Plan (1) CAP (community acquired pneumonia) Current visit: Yes Status: Acute (2) Failure of outpatient treatment Current visit: Yes Status: Acute Assessment and Plan: Impression Community-acquired pneumonia Suspected septic arthritis vs gouty arthritis - right knee Failed outpatient treatment Hypokalemia (Not POA) Leukocytosis A-fib Acute respiratory failure with hypoxia Right knee pain with joint effusion Hypertension Osteoarthritis Have independently interviewed and examined pt. Chart reviewed. Case discussed with CM and my SUPPORT SERVICES REP. Care plan developed with my supervision; agree with above. Doing well today. Breathing feels easier-less cough and congestion. No pain with breathing. No chest pressure or discomfort. Eating well. Lungs: decreased bilaterally, scattered crackles; no distress CV: regular MSE: awake alert appropriate Plan: Will discharge to IRU for continuation of strengthening. Continue PT/OT. Continue Doxycycline for antimicrobial coverage. See orders for details. Hospital Course Summary Disclaimer: The visit summary below is not to be considered part of the above Progress Note.
[2017-02-21] MEDS: HYDROCODONE/APAP 5mg/325mg TABLET PO PRN (13:49)
--- NOTE | 2017-02-21 15:03 | Cardiology Progress Note ---
<Ritu Smith - Last Filed: 02/21/17 14:59> Subjective Principal diagnosis: AFib Interval history: Prabhu is seen in follow up for afib with Dr. Gusman today. He is sitting up in his room, eating his lunch, his at the bedside. He denies chest pain or pressure, palpitations, heart racing or skipping beats, dyspnea, or other complaints Exam Vital signs: Temperature 98.6 F 02/21/17 07:41 Pulse Rate 89 02/21/17 08:00 Respiratory Rate 20 02/21/17 09:15 Blood Pressure 158/82 H 02/21/17 07:41 Pulse Oximetry 94 02/21/17 09:15 - Constitutional no acute distress, obese, cooperative - Routine HEENT Exam Head: Present: normocephalic ENT: Present: mucous membranes moist - Routine Neck Exam Absent: JVD, carotid bruit - Routine Chest/Breast/Axilla Exam Chest wall: Absent: tenderness - Routine Respiratory Exam Present: CTA bilaterally, diminished air movement (bases). Absent: rales, wheezes - Routine Cardiovascular Exam Present: RRR, no murmur. Absent: JVD - Routine Abdominal Exam Present: soft, normoactive bowel sounds - Routine Extremities Exam Present: edema (right knee) - Routine Skin Exam Present: intact, dry, warm - Routine Neurological Exam Present: alert, oriented X3 - Routine Psychiatric Exam Present: normal affect, normal thought process - Additional findings Additional findings: Abnormal Lab Results 02/20/17 02/21/17 02/21/17 04:18 04:26 04:26 WBC 7.6 RBC 4.06 L Hgb 11.9 L Hct 36.0 L MCV 88.7 MCH 29.3 MCHC 33.1 RDW Std Deviation 39.8 Plt Count 331 MPV 10.2 Immature Gran % (Auto) 1.1 H Neut % (Auto) 58.7 Lymph % (Auto) 19.3 L [place] % (Auto) 12.6 H Eos % (Auto) 7.6 H Baso % (Auto) 0.7 Neut # (Auto) 4.5 Lymph # (Auto) 1.5 [place] # (Auto) 1.0 H Eos # (Auto) 0.6 H Baso # (Auto) 0.1 Abs Immat Gran (auto) 0.08 H Turbidity < 20 Sodium 136 Potassium 3.8 Chloride 98 Carbon Dioxide 32 H Anion Gap 6 BUN 11.0 D Creatinine 0.7 L GFR Calculation 107 BUN/Creatinine Ratio 16 Glucose 108 Calculated Osmolality 262 Calcium 8.6 Magnesium 1.8 Total Bilirubin 0.50 Icterus Index < 2 AST 72 H ALT 64 Alkaline Phosphatase 186 H Total Protein 6.6 Albumin 3.0 L Globulin 3.6 Albumin/Globulin Ratio 0.8 L Specimen Hemolysis < 15 Acetaminophen (Tylenol) 500 mg PO Q4H [facility] Last Admin: 02/21/17 13:49 Dose: 500 mg Hydrocodone Bitart/Acetaminophen ([place] 5/325) 1 tab PO Q4H PRN PRN Reason: Pain Last Admin: 02/21/17 13:49 Dose: 1 tab Apixaban (Eliquis) 5 mg PO BID [facility] Diltiazem HCl (Cardizem Cd) 180 mg PO DAILY [facility] Last Admin: 02/21/17 13:53 Dose: 180 mg Doxycycline Hyclate (Vibramycin) 100 mg PO BIDWM [facility] Last Admin: 02/21/17 08:41 Dose: 100 mg Levalbuterol HCl (Xopenex 1.25mg/3ml) 1.25 mg AEROSOL RTTID [facility] Last Admin: 02/21/17 09:25 Dose: 1.25 mg Metoprolol Tartrate (Lopressor) 50 mg PO BIDBS [facility] Last Admin: 02/21/17 08:41 Dose: 50 mg Ondansetron HCl (Zofran) 4 mg IVP Q6H PRN PRN Reason: Nausea &/or vomiting Polyethylene Glycol (Miralax) 17 gm PO DAILY [facility] Last Admin: 02/21/17 08:42 Dose: 17 gm Senna/Docusate Sodium (Senna Plus Tablet) 2 tab PO BID [facility] Last Admin: 02/21/17 08:41 Dose: 2 tab Sodium Chloride (Iv Flush) 10 ml IV PRN PRN PRN Reason: Flushing Last Admin: 02/21/17 04:33 Dose: 10 ml Assessment and Plan - Assessment and Plan (1) Atrial fibrillation Status: Acute Change short acting Cardizem to long acting 180mg daily - Continue to monitor cardiac telemetry - Eliquis 5mg po BID for anticoagulation to prevent stroke - Monitor hgb and platelets (2) CAP (community acquired pneumonia) Status: Acute (3) HTN (hypertension) Status: Chronic (4) Right knee pain Status: Acute (5) Osteoarthritis Status: Acute Hospital Course Summary Disclaimer: The visit summary below is not to be considered part of the above Progress Note. Hospital Course: 02/16/17 Impression Community-acquired pneumonia Failed outpatient treatment Acute respiratory failure with hypoxia Right knee pain with joint effusion Hypertension Osteoarthritis Plan Admit inpatient status under the care of Dr. Garcia for community-acquired pneumonia, failed outpatient treatment with hypoxia. Blood cultures were obtained in the emergency room. Initial venous lactate was normal at 1.5. Will repeat lactate at 1700 as per sepsis protocol. Further infectious workup including sputum culture, urine culture, urine for strep pneumoniae a as well as Legionella. Patient was given Rocephin 1 gram IV in the emergency room. We will continue this daily and add oral doxycycline twice a day. Given new-onset atrial fibrillation. Will obtain echocardiogram and Cardiac consultation placed to Dr. Fowler In regards to right knee effusion. Will place orthopedic consultation to Dr. Lynn. Would like his recommendation regarding at this effusion should be tapped at this time or done in the outpatient setting following antibiotic therapy. Patient does report ongoing right knee pain that has been worse since Tuesday following his fall. Noted to have severe osteoarthritis in the knee that has been hindering his ambulation. SCDs to bilateral lower extremity for DVT prophylaxis Did discuss advanced directives with patient, and family members. At this point he would like to be a full code, however, would not want long-term life- sustaining measures also indicates that patient is having so much difficulty with ambulation due to the right knee pain as well as the weakness and debility secondary to this acute illness. She is not able to care for him safely at home. She wonders if he is possibly a candidate for IRU versus skilled at time of discharge. 02/16/17 Cardiology A FIB: New onset. No prior documentation of A-fib. Pt denies symptoms therefore unknown onset. He was admitted in A-fib. - - Restart his metoprolol 50mg BID. He took it this am. - Hold other BP meds as his BP is ok now and will allow us to increased BB or add CCB for Heart rate control. - No anticoagulation at this time since orthopedics has been consulted and may drain knee effusion. - HR controlled at 90's to 100's. - If he becomes unstable or symptomatic, consider MICHELLE/ DCCV to rule out clot and convert to SR. - After effusion drained or not going to be drained, then start anticoagulant for stroke prevention. CAP (community acquired pneumonia) Treatment with ABX per Dr. Garcia. slight fever, receiving scheduled tylenol for knee pain. HTN (hypertension) - BP and HR are good. - Cont metoprolol 50mg BID for HR control. - Hold other BP meds to allow to increase BB or CCB if needed. Right knee pain Dr. Lynn has been consulted to determine if he will drain effusion. <Delmar Gusman - Last Filed: 02/21/17 20:01> Exam Vital signs: Temperature 97.5 F 02/21/17 16:00 Pulse Rate 89 02/21/17 16:00 Respiratory Rate 18 02/21/17 16:00 Blood Pressure 136/77 02/21/17 16:00 Pulse Oximetry 96 02/21/17 16:00 Assessment and Plan - Assessment and Plan (1) CAP (community acquired pneumonia) Status: Acute (2) Atrial fibrillation Status: Acute (3) HTN (hypertension) Status: Chronic (4) Right knee pain Status: Acute (5) Osteoarthritis Status: Acute Hospital Course Summary Disclaimer: The visit summary below is not to be considered part of the above Progress Note.
--- NOTE | 2017-02-21 16:23 | Discharge Summary ---
Discharge Information Date of admission: 02/16/17 14:45 Anticipated date of discharge: 02/21/17 Attending Physician: Faizan Antonio MD Primary care physician: Kael Rehman DO Consults: Physician Consult: Duarte Fowler Physician Consult: Julius Lynn PT/OT - Discharge Diagnosis (1) CAP (community acquired pneumonia) Status: Acute (2) Failure of outpatient treatment Status: Acute Discharge Diagnosis: Discharge diagnosis Community-acquired pneumonia Associated conditions and complication Suspected septic arthritis vs gouty arthritis - right knee Failed outpatient treatment Hypokalemia (Not POA) Leukocytosis A-fib Acute respiratory failure with hypoxia Right knee pain with joint effusion Hypertension Osteoarthritis - Procedures Procedures: DATE OF OPERATION: 02/18/2017 PROCEDURE PERFORMED: Arthroscopic irrigation and debridement, right knee. Dr Lynn ----- Date of Exam: 02/16/17 Type of Exam: US echo doppler complete This is a technically difficult study. Left atrial dimension is normal. Left ventricle end-diastolic dimension is normal. Left ventricle wall thickness is normal. LV systolic function is normal with ejection fraction of 64%. Right atrium is normal. Right ventricle is normal. Aortic root dimension is normal. Mitral valve annulus is calcified. Mitral valve leaflets are normal. Aortic valve shows fibrocalcific changes with no stenosis or insufficiency. Tricuspid valve shows mild tricuspid regurgitation with normal estimated pulmonary artery systolic pressure of 27. Pulmonary valve shows no pulmonary insufficiency. There is no pericardial effusion. IMPRESSION 1. Normal LV systolic function with ejection fraction of 64%. 2. Technically difficult study. 3. Mitral annulus calcification. 4. Aortic sclerosis. 5. Mild tricuspid regurgitation with normal estimated pulmonary artery systolic pressure of 27. - Laboratory Labs: Admit Lab 02/16/17 12:53 WBC 23.2 H Hgb 12.6 L Hct 38.0 L MCV 89.2 Plt Count 288 Neutrophils % (Manual) 86.0 H Band Neutrophils % 1.0 Lymphocytes % (Manual) 7.0 L Monocytes % (Manual) 6.0 Admit Lab 02/16/17 02/16/17 00:01 12:53 Sodium 137 Potassium 3.9 Chloride 98 Carbon Dioxide 29 Anion Gap 10 BUN 13.0 Creatinine 0.8 GFR Calculation 92 Glucose 118 H Calculated Osmolality 265 Calcium 8.8 Total Bilirubin 0.70 AST 19 ALT 32 Alkaline Phosphatase 140 H Troponin I < 0.012 B-Natriuretic Peptide 468 H Total Protein 7.2 Albumin 3.5 Globulin 3.7 H Plasma Lactate 1.5 TSH 0.39 L 02/21/17 04:26 02/21/17 04:26 - Microbiology Microbiology 02/17/17 09:44 Aspirate, Right Knee Gram Stain - Final 02/17/17 09:44 Aspirate, Right Knee Body Fluid Culture - Preliminary No Growth After 4 Days 02/17/17 10:20 Sputum, Expectorated Gram Stain - Final 02/17/17 10:20 Sputum, Expectorated Sputum Culture - Final Normal Respiratory Genesis 02/16/17 17:38 Urine Legionella Urinary Antigen - Final 02/16/17 17:38 Urine Streptococcus pneumoniae Antigen (M - Final - Radiology Radiology: Date of Exam: 02/16/17 PROCEDURE: CHEST 2-VIEWS UPRIGHT (PA & LAT) FINDINGS: Airspace consolidation in the posterior aspect of the superior segment left lower lobe. Mildly prominent interstitial and pulmonary vascular markings. No pleural effusion or pneumothorax. Heart size and mediastinal contours are within normal limits. Degenerative change in the spine. Impression: 1. Left lower lobe airspace disease could represent atelectasis or pneumonia. 2. Interstitial prominence could relate to mild pulmonary vascular congestion or COPD. ---- Date of Exam: 02/16/17 PROCEDURE: CT LE RT wo con Findings: Genu varus deformity. Severe medial compartment osteoarthritis with a [id number] appearance and large osteophytes. Extensive subchondral cyst formation. Prominent tricompartmental osteophyte formation. Moderate sized joint effusion. No focal hematoma or extra-articular fluid collection. Loose bodies in the anterior and posterior joint recesses. Arterial vascular calcifications. Impression: No acute fracture. Joint effusion. Severe degenerative change. ---- Date of Exam: 02/17/17 PROCEDURE: CHEST 2-VIEWS UPRIGHT (PA & LAT) FINDINGS: Motion artifact. Continued airspace disease in the left midlung and lower lobe. Right lung is stable and grossly clear. New small pleural effusions. No pneumothorax. Heart size and mediastinal contours are stable. Pulmonary vascularity is unchanged. Impression: Continued left lower lobe pneumonia with new small effusions. History of Present Illness HPI: Mr Ramires is a pleasant 86-year-old male who has not been feeling well for some time. He reports that he was seen by his primary care provider, Dr. Rehman on 02/02. At that time he was diagnosed with bronchitis and was started on Augmentin twice a day for 7 days. During this time. He also received Cipro eyedrops for conjunctivitis. Initially during treatment. He did feel somewhat better. However , upon completion of antibiotic course, he began to feel worse again. On Wednesday 02/14. He was getting into the car and his right knee gave out causing him to fall. Since that time he has had right knee discomfort. Today he presented to the emergency room for further acute evaluation. Upon arrival he was found to be hypoxic with room air saturations of 89%. Further evaluation did reveal leukocytosis with a white count of 23.2. Hemoglobin 12.6, hematocrit 38.0, neutrophils 86%. Chemistry panel overall unremarkable. Troponin was negative, proBNP 468. Plasma lactate 1.5, pro calcitonin 0.08. A urinalysis was obtained that showed trace protein, 1+ blood, 1+ leukocyte esterase, 3-5 RBCs with 10-20 WBCs with 3+ bacteria. Twelve-lead EKG did reveal atrial fibrillation with a rate of 100. This is a new finding for the patient. A chest x-ray was obtained that did reveal left lower lobe pneumonia with interstitial vascular congestion/ COPD. Given significance in right knee discomfort. A CT scan of the lower extremity was obtained. It did not show any acute fracture. However, presence of a joint effusion with severe degenerative changes. Blood cultures were obtained and patient was started on IV Rocephin for antimicrobial coverage. Given the hypoxia, accompanied with significant leukocytosis and pneumonia. The hospitalist services were contacted and accepted patient for inpatient admission for further evaluation and treatment. It is expected that his stay will be greater than 2 overnights. For complete details of the H&P refer to that document. Objective Vital signs: Temperature 98.6 F 02/21/17 07:41 Pulse Rate 89 02/21/17 08:00 Respiratory Rate 16 02/21/17 15:19 Blood Pressure 158/82 H 02/21/17 07:41 Pulse Oximetry 94 02/21/17 09:15 Rhythm: Atrial Fibrillation with Normal Ventricular Rate Height/Weight/BMI: Height 1.75 m Weight 92.1 kg Body Mass Index 29.7 Hospital Course This is a general summary of the patient's hospital course. For more details refer to the complete medical record. Hospital course: Impression Community-acquired pneumonia Failed outpatient treatment Acute respiratory failure with hypoxia Right knee pain with joint effusion Hypertension Osteoarthritis 02/16/17-hospital admission Admit inpatient status under the care of Dr. Garcia for community-acquired pneumonia, failed outpatient treatment with hypoxia. Blood cultures were obtained in the emergency room. Initial venous lactate was normal at 1.5. Will repeat lactate at 1700 as per sepsis protocol. Further infectious workup including sputum culture, urine culture, urine for strep pneumoniae a as well as Legionella. Patient was given Rocephin 1 gram IV in the emergency room. We will continue this daily and add oral doxycycline twice a day. Given new-onset atrial fibrillation. Will obtain echocardiogram and Cardiac consultation placed to Dr. Fowler In regards to right knee effusion. Will place orthopedic consultation to Dr. Lynn. Would like his recommendation regarding at this effusion should be tapped at this time or done in the outpatient setting following antibiotic therapy. Patient does report ongoing right knee pain that has been worse since Tuesday following his fall. Noted to have severe osteoarthritis in the knee that has been hindering his ambulation. SCDs to bilateral lower extremity for DVT prophylaxis Did discuss advanced directives with patient, and family members. At this point he would like to be a full code, however, would not want long-term life- sustaining measures also indicates that patient is having so much difficulty with ambulation due to the right knee pain as well as the weakness and debility secondary to this acute illness. She is not able to care for him safely at home. She wonders if he is possibly a candidate for IRU versus skilled at time of discharge. 02/16/17 Cardiology A FIB: New onset. No prior documentation of A-fib. Pt denies symptoms therefore unknown onset. He was admitted in A-fib. - - Restart his metoprolol 50mg BID. He took it this am. - Hold other BP meds as his BP is ok now and will allow us to increased BB or add CCB for Heart rate control. - No anticoagulation at this time since orthopedics has been consulted and may drain knee effusion. - HR controlled at 90's to 100's. - If he becomes unstable or symptomatic, consider MICHELLE/ DCCV to rule out clot and convert to SR. - After effusion drained or not going to be drained, then start anticoagulant for stroke prevention. CAP (community acquired pneumonia) Treatment with ABX per Dr. Garcia. slight fever, receiving scheduled tylenol for knee pain. HTN (hypertension) - BP and HR are good. - Cont metoprolol 50mg BID for HR control. - Hold other BP meds to allow to increase BB or CCB if needed. Right knee pain Dr. Lynn has been consulted to determine if he will drain effusion. 02/17/17 Appreciate orthopedic consultation. Joint aspiration performed by Dr Lynn, synovial lab pending. Awaiting for those results, will then initiate anticoagulation. No surgical procedures planned. Consultation by Dr. Fowler reveals rate controlled atrial fibrillation. Continue on Lopressor 50 twice a day. Once patient is on 30 days of anticoagulation. He will follow with Dr. Fowler for cardioversion. Continue Rocephin and doxycycline for treatment of pneumonia. Currently, blood cultures are negative, sputum culture pending Will continue to work on weaning down oxygen as able. Tylenol as needed for knee pain MiraLAX and senna for bowel motivation Recheck CBC and BMP tomorrow to follow blood counts, renal function, electrolytes Once patient is more medically stable. Will consult PT and OT for strengthening. 02/18/17 Patient had knee irrigation earlier today. Is doing well. Cardiology started Lovenox as ortho gave the okay post surgery. Continue Rocephin and doxycycline for CAP. Sputum culture is growing out gram- positive and gram-negative cocci and rods. CBC in the a.m. DC IV fluids as patient is taking po well. His weight is up 3 kg since admission , but suspect he had extra IV fluids with his procedure today. Consider Lasix if input and output continues to be discordant. Given his aspiration during his exam today, if he should develop new or worsening symptoms consider antibiotic coverage for anaerobes. Potassium 40 mEq 1 given today for hypokalemia. Check BMP in the morning. Given there are crystals found on the knee aspirate, will check a uric acid level. His pain is controlled right now, likely secondary to block. Will hold off on treatment with NSAIDs or prednisone at this time. 02/19/17 Overall doing well and improving Continue with scheduled nebulizers, continue to work with weaning down oxygen as he is able to be on room air during the day. Continue to cover with Rocephin and doxycycline for required pneumonia WBC count normalized today down to 9.5. Chemistry panel normal Placed consult for PT and OT to have patient up and ambulate to get stronger. Will likely need to talk with patient and prior to discharge regarding plans as they reside independently and had some concerns for safety. Did ask nursing staff to reweigh patient as this morning's weight indicates patient is up 4 kilograms from yesterday. Suspect this may be false. 02/20/17 Rocephin course completed. Continue on Doxycycline for pulmonary coverage. Right knee pain is improved. Based on synovial fluid with presence of crystals. This likely represents a pseudogout. Will continue to monitor, appreciate orthopedic consultation. Continue to work on weaning off oxygen PT and OT consulted for evaluation tomorrow. Question if patient will be strong enough to go home with his elderly . Or if he will need some skilled rehabilitation prior to returning home. Recheck CBC and BMP tomorrow morning to follow blood counts, renal function, and electro-lytes. 02/21/17 Rocephin course completed. Continue on Doxycycline for pulmonary coverage. Continue scheduled breathing treatments and weaning off oxygen. Currently on room air. In today to monitor right knee pain. Encourage patient to utilize [place] for more severe pain. Her for evidence of erythema or increased swelling. Recent synovial fluid revealed presence of crystals likely representing pseudogout. Continue to work with PT and OT for ongoing strengthening. Labs reviewed Will discharge to IRU for continued therapy and monitoring of respiratory status. See orders for details. DVT Prophylaxis: Eliquis Discharge Plan - Med Rec/Dispo Referrals/Follow Up: Vincent Penn PA [Physician Dermatology Nurse Practitioner] - 03/07/17 3:00 pm Kael Rehman DO [Family Provider] - (Will need follow up with Dr Rehman 1 week after discharge from IRU. ) Cheikhuvcynthia Instructions: Pneumonia (GEN) Prescriptions: New Apixaban [Eliquis] 5 mg PO BID tablet DiltiaZEM CD [Cardizem Cd] 180 mg PO DAILY capsule Doxycycline [Vibramycin] 100 mg PO BIDWM tablet Levalbuterol 1.25mg/3ml NEB [XOPENEX 1.25mg/3ml] 1.25 mg AEROSOL RTTID neb PEG 3350 17gm PACKET [Miralax] 17 gm PO DAILY packet Hydrocodone/APAP 5/325 [[place] 5/325] 1 tab PO Q4H PRN tablet PRN Reason: Pain Senna + Docusate [Senna Plus Tablet] 2 tab PO BID tablet Continue Potassium Chloride 20 meq PO DAILY Cholecalciferol [Vit. D-3] 1,000 unit PO DAILY Flonase (Fluticasone) 50 mcg nasal spray 1 spray INTRANASAL DAILY 30 Days #16 Cozaar (losartan) 50 mg tablet 50 mg PO .QD 90 Days tab Lopressor (metoprolol tartrate) 50 mg tablet 50 mg PO BID 90 Days tab Spiriva Respimat (tiotropium bromide) 2.5 mcg/actuation, inhalation 2 puff INH PRN Ciloxan (ciprofloxacin) 0.3 % eye drops 1 package EACH EYE .COMPLEX #10 ml Breo Ellipta (fluticasone 100 mcg-vilanterol 25 mcg/dose) powder for inhalation 1 inh INH Q24H Discontinued indapamide 1.25 mg tablet 1.25 mg PO .QD 90 Days tab Norvasc (amlodipine) 10 mg tablet 10 mg PO .QD 90 Days tab Discharge Instructions/Outpatient Orders: Provider Discharge Instructions Location: Determined By Patient - [place]position [place] [facility] [place] [facility] [place] Attestation Attestation Narrative: 02/21/17 16:38 I have independently interviewed and examined patient prior to discharge. See my progress note from today for details. Medically stable for discharge to IRU.
[2017-02-21 16:43] VITALS: BP 136/77; RESP 18; TEMP 97.5; O2SAT 96
[2017-02-21 16:48] VITALS: PULSE 89
[2017-02-21] MEDS ORDERED: APIXABAN 5 MG TABLET PO SCH (21:00)
== END 2017-02-21 17:32 | DRG 982 ==
LOC: ED 12:15 → SUATTDRO 14:45 → MED 14:45
PROVIDERS: ADMIT Internal Medicine; ATTEND Hospitalist

== ENCOUNTER 2017-02-21 17:32 | Inpatient (IN) ==
[2017-02-21] MEDS ORDERED: LOSARTAN 50 MG TABLET PO SCH (18:20)
[2017-02-21] MEDS ORDERED: EYE EACH EYE SCH (18:20)
[2017-02-21] MEDS ORDERED: NON-FORMULARY MEDICATION 1 EACH EACH (Tiotropium Bromide [Spiriva Respimat] 2 PUFF) PO SCH (18:20)
[2017-02-21] MEDS ORDERED: ONDANSETRON 4 MG/2 ML INJECTION IVP PRN (18:20)
[2017-02-21] MEDS ORDERED: CIPROFLOXACIN 0.3% EACH EYE SCH (18:20)
[2017-02-21] MEDS: SENNA + DOCUSATE TABLET PO SCH (21:33)
[2017-02-21] MEDS: APIXABAN 5 MG TABLET PO SCH (21:33)
[2017-02-22] MEDS: HYDROCODONE/APAP 5mg/325mg TABLET PO PRN ×2 (08:55→21:30)
[2017-02-22] MEDS: SENNA + DOCUSATE TABLET PO SCH ×2 (08:56→21:31)
[2017-02-22] MEDS: POLYETHYL GLYCOL 3350 17gm PACKET PO SCH (08:56)
[2017-02-22] MEDS: APIXABAN 5 MG TABLET PO SCH ×2 (08:57→21:30)
--- NOTE | 2017-02-22 10:55 | IRU History & Physical Report ---
HPI IRU Date: Chief complaint: I'm weak and short of breath HPI: Mr. Ramires is a very pleasant 86-year-old white male referred by Dr. Faizan Antonio, hospitalist. His primary care physician is Dr. Kael Rehman. He reports onset of symptoms sometime prior to 02/02/2017. He developed a respiratory illness consisting of cough and shortness of breath and reduced appetite. He apparently had no nausea and no vomiting and there is no reported fever. He was seen by Dr. Thakkar was placed on Augmentin on approximately 2016. Subsequently, the patient was getting into his car on 02/14/2017. His right knee gave out and he fell to the ground. Had severe pain in the knee. The patient subsequently presented to the emergency department for evaluation on . He was noted to have a left lower lobe infiltrate, hypoxemia with O2 saturations in the 89% range on room air as well as a white count of 23,000. Initial lactate was 1.5. CT scan was subsequently done of the knee demonstrating severe osteoarthritic changes with [id number] appearance as well as an effusion. He was given IV fluids and started on Rocephin. 2 blood cultures were obtained and were negative. He was admitted to the [facility] under the care of the hospitalist. He states he had not had a pneumonia shot prior to this admission. He has had one on acute now. He remains on doxycycline. He was seen in consultation by Dr. Fowler. Patient was started on diltiazem and switched to the long-acting version. This was for his atrial fibrillation. Echocardiogram, while technically difficult, did reveal what appeared to be normal contractility. He was also started on Eliquis for stroke prevention. He does not have a history of atrial fibrillation prior to this. He also denies a history of chest pain or coronary artery disease. Patient has been treated with Rocephin while in the [facility] hospital. CT scan of the right knee was performed demonstrating an effusion and osteoarthritis. He was seen by Dr. Lynn, orthopedist. Arthroscopic irrigation was performed as well as synovectomy. Cultures were negative from the knee but reference is made to calcium pyrophosphate crystals being in the knee fluid. It is likely the patient did not have a septic knee but more likely had pseudogout. He was quite debilitated after this. He was evaluated by physical therapy and occupational therapy and felt to be a good candidate for inpatient rehabilitation. At the present time the patient reports continued cough which is loose but not really producing much in the way of sputum. Continues to have shortness of breath with activity but again that is much improved. His appetite is reduced but improved as well. Continues to have pain in the right knee. At home prior to this he was having difficulty with the knee as well. He uses a single-point cane at home but does carry around a 4 wheeled walker in his car if he is out and about. He has fallen on several occasions at home prior to this current episode. However, he was independent with ADLs and able to ambulate without significant difficulty. He was independent. At home he lives with his and 13-year-old granddaughter. They have 2 steps to get into their home. Current level of function is as follows: 18: Moderately independent, grooming with supervision level. Upper body dressing with supervision, lower body dressing with maximum assistance. Toileting with maximum assistance. Bed/chair/wheelchair transfers with maximal assistance, toilet transfers with moderate assistance, walking with total assistance. The following medical conditions are noted and require active monitoring and/or management: 1. LLL pneumonia, community-acquired. He is at risk for further decompensation of his pulmonary status as well as further worsening of his infection. 2. New onset acute respiratory failure with hypoxemia. He has required oxygen supplementation. 3. New onset atrial fibrillation with new medications started (diltiazem and Eliquis). He is at risk for cardiac decompensation, bleeding or worsening shortness of breath. The following therapies will be needed: 1. Physical therapy: for transfers and ambulation and stairs. 2. Occupational therapy: for ADL's and transfers. 3. Medical management: for the above conditions. 4. 24 hour Rehabilitation Nursing to monitor and address the following: Monitoring oxygen saturations, adequate oral intake, monitoring vital signs and evidence of decompensation of respiratory status or infection worsening. [facility] Patient Stated Medical History Transient Ischemic Attacks ( Yes: possibly-in 1998 TIA) Cataracts Yes: removed Cardiac Arrhythmia Yes Hypertension Yes Bronchitis Yes Chronic Obstructive Pulmonary Yes Disease (COPD) Pneumonia Yes: admitted 2 days ago, hypoxia Sleep Apnea No Constipation Yes Hx Incontinence No Other Musculoskeletal Yes: TIA no apperent residuals Other Infectious Yes: SKIN INFECTION OF WOUND, YEARS AGO. Other Yes: jaw bilateral pops per patient Clinic Medical History (Last Updated 02/02/17 @ 14:18 by Franca Glynn MA) HTN (hypertension) (Acute Medical) Surgical History: Appendectomy. Right leg surgery/infection site. nose surgery. L3-S1 laminectomy & fusion. left cataract extraction Family History: His father apparently suffered from depression. His mother had asthma. His siblings are . - Social History Smoking status: Former smoker Packs per day: 0.5 (started smoking at age 16. Stopped age 31. On average one half pack daily.) Packs-years: 7 Substance use type: does not use Alcohol intake: never Household members: spouse, other (13-year-old granddaughter.) Current occupational status: retired Current residence: Apartment/Private Home Social history: PCP-Dr. Rehman Neurosurgeon-Dr. Magana Patient has worked in [employer] in [place] for a number of years. He is currently retired. Review of Systems - Constitutional Constitutional: Present: anorexia, fatigue. Absent: chills, fever(s), headache( s), lethargy, malaise, night sweats, weakness, weight gain, weight loss - EENMT Eyes: Absent: blurry vision, change in vision, diplopia Mouth/Throat: Absent: changes in swallowing, painful swallowing, change in taste , bleeding gums, change in voice - Cardiovascular Cardiovascular: Present: dyspnea on exertion. Absent: chest pain, palpitations , syncope, orthopnea, edema, cyanosis, heart murmur Rhythm: Present: regular rhythm Vascular: Absent: intermittent claudication, pedal edema, unilateral swelling - Respiratory Respiratory: Present: cough, dyspnea, dyspnea on exertion, wheezing. Absent: hemoptysis, pain on inspiration, chest congestion, excessive phlegm production - Gastrointestinal Gastrointestinal: Absent: abdominal pain, change in bowel habits, constipation, diarrhea, dyspepsia, dysphagia, early satiety, hematochezia, melena, nausea, vomiting - Musculoskeletal Musculoskeletal: Present: arthralgias (right knee pain.), myalgias. Absent: abnormal gait, back pain, joint swelling, limited range of motion, muscle weakness - Integumentary/Breasts Integumentary: Absent: alopecia, erythema, lesions, pruritus, rash, jaundice - Neurological Neurological: Absent: abnormal gait, abnormal movements, abnormal speech, confusion, convulsions, dizziness, focal weakness, frequent falls, headache(s), loss of vision, memory loss, numbness, paresthesias, tremor(s) - Psychiatric Psychiatric: Absent: abnormal sleep pattern, anxiety, depression - Endocrine Endocrine: Absent: cold intolerance, flushing, heat intolerance, palpitations - Hematologic/Lymphatic Hematologic/Lymphatic: Absent: easy bleeding, easy bruising, lymphadenopathy - Allergic/Immunologic Allergic/Immunologic: Absent: urticaria Medications Home Medications Medication Instructions Recorded Confirmed Type Breo Ellipta (fluticasone 100 1 inh INH Q24H 02/02/17 02/16/17 History mcg-vilanterol 25 mcg/dose) powder for inhalation Cozaar (losartan) 50 mg tablet 50 mg PO .QD 90 Days tab 02/02/17 02/16/17 History Flonase (Fluticasone) 50 mcg nasal 1 spray INTRANASAL DAILY 30 Days 02/02/17 History spray #16 Lopressor (metoprolol tartrate) 50 50 mg PO BID 90 Days tab 02/02/17 02/16/17 History mg tablet Spiriva Respimat (tiotropium 2 puff INH PRN 02/02/17 02/16/17 History bromide) 2.5 mcg/actuation, inhalation Cholecalciferol [Vit. D-3] 1,000 unit PO DAILY 02/16/17 02/16/17 History Potassium Chloride 20 meq PO DAILY 02/16/17 02/16/17 History Allergies Allergy/AdvReac Type Severity Reaction Status Date / Time No Known Allergies Allergy Verified 02/16/17 12:42 Results IRU - Labs Labs: I reviewed extensive inpatient records as well as CT scans, echocardiogram and other providers notes. Exam Vital Signs: Temperature 97.7 F 02/22/17 08:08 Pulse Rate 101 H 02/22/17 08:08 Respiratory Rate 18 02/22/17 08:08 Blood Pressure 142/75 H 02/22/17 08:08 Pulse Oximetry 95 02/22/17 08:08 Height/Weight/BMI: Height 1.75 m Weight 93.9 kg - Constitutional Present: no acute distress, well nourished, well developed, obese, cooperative - Routine HEENT Exam Head: Present: normocephalic, atraumatic. Absent: cushingoid faces, abrasion, laceration, hematoma Eye: Present: EOMI, PERRL. Absent: conjunctival icterus, scleral injection, periorbital swelling, nystagmus ENT: Present: mucous membranes moist, oropharynx clear - Routine Neck Exam Present: supple, full ROM, trachea midline. Absent: lymphadenopathy, thyromegaly, tenderness, swelling - Routine Chest/Breast/Axilla Exam Chest wall: Absent: tenderness, mass Axillae: Absent: lymphadenopathy, mass - Routine Respiratory Exam Present: decreased breath sounds. Absent: accessory muscle use, prolonged expiratory phase, rales, respiratory distress, rhonchi, stridor, wheezes, crackles, distant breath sounds - Routine Cardiovascular Exam Present: RRR, S1, S2, no murmur. Absent: gallop, S3, S4, click, irregular rhythm - Routine Abdominal Exam Present: soft, normoactive bowel sounds, non distended, non tender. Absent: rebound, guarding, firm, rigid, organomegaly, mass, hernia, wound - Routine Extremities Exam Present: no edema, non tender, normal capillary refill, joint swelling (right knee is edematous with effusion. No warmth nor redness.). Absent: cyanosis, clubbing, pulses intact (I do not feel good pulses in the) - Routine Back/Spine/Pelvis Exam Back/Spine: Present: full ROM. Absent: scoliosis, kyphosis - Routine Skin Exam Present: intact, dry, warm. Absent: cyanosis, erythema, pallor, mottling, petechiae, urticaria, lesions, jaundice - Routine Neurological Exam Present: alert, oriented X3, CN II-XII intact, sensory deficit, motor deficit, altered mental status, moving all extremities, facial asymmetry, normal speech, tremors - Routine Psychiatric Exam Present: normal affect, normal thought process, cooperative, good insight, good judgment. Absent: depressed, anxious Sepsis Assessment - Evaluation Confirmed Suspected Infection: No IRU A/P (1) CAP (community acquired pneumonia) Qualifiers: Laterality: left Lung location: lower lobe of lung Qualified Code(s): J18.1 - Lobar pneumonia, unspecified organism Current visit: No Status: Acute Patient has had some hypoxemia. He will be monitored carefully for his oxygen saturations as well as any evidence of decompensation of his pulmonary status or infection. He will remain on doxycycline. (2) Atrial fibrillation Qualifiers: Atrial fibrillation type: paroxysmal Qualified Code(s): I48.0 - Paroxysmal atrial fibrillation Current visit: No Status: Acute He has been placed on diltiazem as well as Eliquis. He is at risk for further palpitations, hypotension or bleeding risk from the Eliquis. (3) Osteoarthritis Qualifiers: Osteoarthritis location: knee Osteoarthritis type: primary Laterality: right Qualified Code(s): M17.11 - Unilateral primary osteoarthritis, right knee Current visit: No Status: Acute Has evidence of severe osteoarthritis on CT scan. Physical therapy and occupational therapy will be working with the patient to return him to his previous level of functioning. (4) Pseudogout of right knee Current visit: Yes Status: Acute Reference is made to pseudogout crystals noted on arthroscopy. (5) Acute hypoxemic respiratory failure Current visit: Yes Status: Acute Patient had hypoxemia the time of admission and required supplemental oxygen which was new for him. His requirements have improved but this will be monitored carefully. DVT Prophylaxis: SCD's, Eliquis Resuscitation Status: Full Code - Course Hospital Course: Luan Dale MD: - Interventions to Obtain Goals PT Treatment Plan: Balance/Proprioception, Functional Activities, Gait Training , Patient/Family Education OT Treatment Plan: ADL (Basic Care), Balance Training, Pt./Family Education, Ther. Exercise for ADL Goals Progress/Modifications: An intensive individualized program of physical therapy, occupational therapy with medical management and 24 rehabilitation nursing monitoring will be undertaken for this patient. It is anticipated the patient will be able to return to his home with independent or modified independent level of functioning.
--- NOTE | 2017-02-22 10:56 | Consult Note ---
<Mary Kay Keene - Last Filed: 02/22/17 11:51> Consult Information - Data of Consult Requesting Physician: Luan Dale MD Primary Care Provider: Kael Rehman DO Family Provider: Kael Rehman DO - Consult Narrative Reason for consult: Medical management of chronic health problems. History of present illness: Patient is an 86-year-old male who was initially admitted to [facility] on 02/16/17 for sepsis and failed outpatient treatment of community acquired pneumonia. He had failed outpatient treatment with Augmentin twice a day for 7 days. On presentation to the emergency room he was hypoxic with room air saturations of 89%. He was also found to be in atrial fibrillation which was a new finding for this patient. Dr. Fowler was consulted and he was started on metoprolol and Cardizem, with plans to cardiovert after he has been on anticoagulation for 30 days. Lovenox was started following his knee surgery, then prior to dismissal, he was switched to apixaban (Eliquis) 5mg BID. An echocardiogram was performed. See results below. His pneumonia was treated with Rocephin and doxycycline and his respiratory status improved during his acute stay. He has completed his Rocephin course. He continues on doxycycline. On 02/18/17 patient had a an arthroscopic irrigation and debridement right knee with Dr. Lynn for possible septic arthritis. A partial meniscectomy was performed to the lateral meniscus and osteophytes were debrided. In hindsight, based on negative knee aspirate culture and positive findings of crystals, his knee pain was likely caused by pseudogout. Following dismissal from his acute stay, patient is being admitted to rehabilitation for further strengthening and conditioning with hopes to be able to return to independent living at home with his . [facility] Medical History Hypertension. COPD History of right leg soft tissue infection. Questionable history of TIA Cataracts Surgical History: Appendectomy. Right leg surgery/infection site. nose surgery. L3-S1 laminectomy & fusion. left cataract extraction Family History: Father-history of depression Mother-history of asthma Patient is the youngest sibling of 9 total. He is the only sibling still alive.. - Social History Smoking status: Former smoker (quit age 31) Substance use type: does not use Alcohol intake frequency: does not drink Housing: house Household members: spouse Current occupational status: retired ([employer]) Current residence: Apartment/Private Home Social history: PCP-Dr. Rehman Neurosurgeon-Dr. Magana Review of Systems All systems PM: 10-point ROS was reviewed, no additional remarkable complaints except - EENMT Eyes: Present: other (chronic inturning of lower eye lid - will need surgery per ) - Respiratory Respiratory: Present: cough (improving) - Musculoskeletal Musculoskeletal: Present: other (R knee pain and swelling - improving) Medications Home Medications Medication Instructions Recorded Confirmed Type Breo Ellipta (fluticasone 100 1 inh INH Q24H 02/02/17 02/16/17 History mcg-vilanterol 25 mcg/dose) powder for inhalation Cozaar (losartan) 50 mg tablet 50 mg PO .QD 90 Days tab 02/02/17 02/16/17 History Flonase (Fluticasone) 50 mcg nasal 1 spray INTRANASAL DAILY 30 Days 02/02/17 History spray #16 Lopressor (metoprolol tartrate) 50 50 mg PO BID 90 Days tab 02/02/17 02/16/17 History mg tablet Spiriva Respimat (tiotropium 2 puff INH PRN 02/02/17 02/16/17 History bromide) 2.5 mcg/actuation, inhalation Cholecalciferol [Vit. D-3] 1,000 unit PO DAILY 02/16/17 02/16/17 History Potassium Chloride 20 meq PO DAILY 02/16/17 02/16/17 History Allergies Allergy/AdvReac Type Severity Reaction Status Date / Time No Known Allergies Allergy Verified 02/16/17 12:42 Exam Vital Signs: Temperature 97.7 F 02/22/17 08:08 Pulse Rate 101 H 02/22/17 08:08 Respiratory Rate 18 02/22/17 08:08 Blood Pressure 142/75 H 02/22/17 08:08 Pulse Oximetry 95 02/22/17 08:08 Height/Weight/BMI: Height 1.75 m Weight 93.9 kg - Constitutional Present: no acute distress, well nourished, well developed - Routine HEENT Exam Head: Present: normocephalic, atraumatic Eye: Present: EOMI. Absent: conjunctival icterus, conjunctivae pink ENT: Present: mucous membranes moist, oropharynx clear - Routine Neck Exam Present: supple. Absent: lymphadenopathy, thyromegaly - Routine Respiratory Exam Present: decreased breath sounds (L base), CTA bilaterally. Absent: wheezes - Routine Cardiovascular Exam Present: RRR, S1, S2, murmur (Gr 2) - Routine Abdominal Exam Present: soft, normoactive bowel sounds, non distended. Absent: tenderness - Routine Extremities Exam Present: edema (R knee), no edema (feet.ankles), normal capillary refill - Routine Skin Exam Present: dry, warm - Routine Neurological Exam Present: alert, oriented X3, moving all extremities, normal speech. Absent: tremors - Routine Psychiatric Exam Present: normal affect, cooperative Results - Labs CBC & Chem 7: 02/22/17 04:19 02/22/17 04:19 Microbiology Results: During acute stay he had negative urine culture, negative blood culture, negative sputum culture and negative knee aspirate culture. - Echocardiogram Echocardiogram: 02/16/17 MPRESSION 1. Normal LV systolic function with ejection fraction of 64%. 2. Technically difficult study. 3. Mitral annulus calcification. 4. Aortic sclerosis. 5. Mild tricuspid regurgitation with normal estimated pulmonary artery systolic pressure of 27. Assessment and Plan (1) CAP (community acquired pneumonia) Current visit: Yes Status: Acute (2) HTN (hypertension) Current visit: Yes Status: Chronic (3) Pseudogout of right knee Current visit: Yes Status: Acute Assessment and Plan: Assessment Community-acquired pneumonia-improving Pseudogout -right knee Paroxysmal Atrial fibrillation-on chronic anticoagulation Hypertension Osteoarthritis Plan Agree with admission to IRU under the care of Dr. Dale for continued strengthening. He is to continue the doxycycline for a total of 7 days for his community acquired pneumonia. His last day is 02/23/17. Cardiology continues to follow patient. He continues on Eliquis for anticoagulation. His short acting Cardizem was changed to long-acting 180 mg daily yesterday. He continues on metoprolol. He is currently in normal sinus rhythm. We will continue to follow patient with you throughout his stay. Thank you for the consult. Hospital Course Summary Disclaimer: The visit summary below is not to be considered part of the above Progress Note. <BondRenetta L - Last Filed: 02/22/17 21:16> Consult Information - Data of Consult Requesting Physician: Luan Dale MD Primary Care Provider: Kael Rehman DO Family Provider: Kael Rehman DO [facility] Patient Stated Medical History Transient Ischemic Attacks ( Yes: possibly-in 1998 TIA) Cataracts Yes: removed Cardiac Arrhythmia Yes Hypertension Yes Bronchitis Yes Chronic Obstructive Pulmonary Yes Disease (COPD) Pneumonia Yes: admitted 2 days ago, hypoxia Sleep Apnea No Constipation Yes Hx Incontinence No Other Musculoskeletal Yes: TIA no apperent residuals Other Infectious Yes: SKIN INFECTION OF WOUND, YEARS AGO. Other Yes: jaw bilateral pops per patient Clinic Medical History (Last Updated 02/02/17 @ 14:18 by Franca Glynn MA) HTN (hypertension) (Acute Medical) Exam Vital Signs: Temperature 97.7 F 02/22/17 08:08 Pulse Rate 101 H 02/22/17 08:08 Respiratory Rate 16 02/22/17 19:26 Blood Pressure 142/75 H 02/22/17 08:08 Pulse Oximetry 96 02/22/17 15:14 Height/Weight/BMI: Height 1.75 m Weight 93.9 kg Results - Labs CBC & Chem 7: 02/22/17 04:19 02/22/17 04:19 Assessment and Plan (1) CAP (community acquired pneumonia) Current visit: Yes Status: Acute (2) HTN (hypertension) Current visit: Yes Status: Chronic (3) Pseudogout of right knee Current visit: Yes Status: Acute Assessment and Plan: 02/22/2017-I reviewed this chart, the patient history, and the [employer]'s/PA's documented findings as above. We discussed and formulated the assessment and plan as above with the additions below.-Dr. Bond Patient was seen in his room earlier this evening. He stated he was feeling well. He denied any shortness of breath or cough. He stated he was eating and drinking well. He denies any chest pains or palpitations. He states he did not notice any palpitations when he previously had A. fib. He states he did well with therapy today but feels a little worn out. He states he is eating and drinking well and has no complaints. On exam he is alert and oriented and in no acute distress. Chest is clear to auscultation. Cardiovascular reveals a regular rate and rhythm. Abdomen is soft and nontender. Extremities are free of edema. Right knee where he had a recent surgery reveals no significant swelling and no erythema. No increased warmth. Impression and plan Finish out course of antibiotic for pneumonia. Agree with continued PT and OT for strengthening. Continue with detailed care plan as noted above. Hospital Course Summary Disclaimer: The visit summary below is not to be considered part of the above Progress Note.
--- NOTE | 2017-02-22 11:18 | IRU 24Hr Post Admit Eval ---
24 Hr Post Admission Physical - Relevant Changes Relevant Changes: No Reviewed: I have reviewed the patient's information and concur with the finding and results of the pre-admission screen. Certification: I certify the patient for rehabilitation. - Patient Condition (1) CAP (community acquired pneumonia) Status: Acute Qualifiers: Laterality: left Lung location: lower lobe of lung Qualified Code(s): J18.1 - Lobar pneumonia, unspecified organism Code(s): J18.9 - Pneumonia, unspecified organism Classification: Present on IRF Admission, IRF Tx That Should Address Diagnosis, Diagnosis Requiring Medical Follow Up (2) Atrial fibrillation Status: Acute Qualifiers: Atrial fibrillation type: paroxysmal Qualified Code(s): I48.0 - Paroxysmal atrial fibrillation Code(s): I48.91 - Unspecified atrial fibrillation Classification: Present on IRF Admission, IRF Tx That Should Address Diagnosis, Diagnosis Requiring Medical Follow Up (3) Osteoarthritis Status: Acute Qualifiers: Osteoarthritis location: knee Osteoarthritis type: primary Laterality: right Qualified Code(s): M17.11 - Unilateral primary osteoarthritis, right knee Code(s): M19.90 - Unspecified osteoarthritis, unspecified site Classification: Present on IRF Admission, IRF Tx That Should Address Diagnosis, Diagnosis Requiring Medical Follow Up (4) Pseudogout of right knee Status: Acute Code(s): M11.261 - Other chondrocalcinosis, right knee Classification: Diagnosis Requiring Medical Follow Up (5) Acute hypoxemic respiratory failure Status: Acute Code(s): J96.01 - Acute respiratory failure with hypoxia Classification: IRF Tx That Should Address Diagnosis, Diagnosis Requiring Medical Follow Up - Prior Functional Status Lives With: Spouse, Other (13 year old granddaughter) Residence Type: Apartment/Private Home Assitive Devices: Straight Cane Prior Functional Status: Indep. at home or school, Used assistive device - Current Functional Status Current Level of Function: Current level of function is as follows: 18: Moderately independent, grooming with supervision level. Upper body dressing with supervision, lower body dressing with maximum assistance. Toileting with maximum assistance. Bed/chair/ wheelchair transfers with maximal assistance, toilet transfers with moderate assistance, walking with total assistance. Failed Alternative Therapy: Arrived from Acute Care Patient Requirements: The patient requires oversight by rehabilitation physician to manage their rehabilitation treatment plan and multidisciplinary approach to care that can only be provided in an IRF and requires a multidisciplinary approach to care, provided by professional PTs, OTs, STs, dieticians, RTs, rehabilitation nurses and is not available in lesser levels of care. Limitations Req: Mobility Impairment, ADL Impairment, Respiratory Impairment Physical Therapy Minutes: 90 Occupational Therapy Minutes: 90 Therapy: The patient is to receive therapy at least 5 days a week. - Complications/Comorbidities Impact on Functional Outcomes: Patient's acute respiratory failure and dyspnea with activity as well as his pneumonia will likely negatively impact his functional outcome. In addition his atrial fibrillation may negatively impact his functional outcome. - Plan to Avoid Complications Plan to Avoid Complications: The patient cannot receive this care in a lesser intensive setting such as [facility] or Outpatient Therapy due to the patient requiring the following : Close monitoring of oxygen saturations, vital signs with monitoring to ensure no worsening of his respiratory status or infection. In addition, he will require intensive therapy in view of the severe right knee osteoarthritis with weakness to reduce his risk of falls and readmission. .
--- NOTE | 2017-02-22 11:25 | Cardiology Consult Note ---
<Ritu Smith - Last Filed: 02/24/17 10:55> History of Present Illness Consult date: 02/21/17 Requesting physician: Faizan Antonio Consult reason: atrial fibrillation Chief complaint: New afib History of present illness: Prabhu is an 86 year old patient with a history of HTN, TIA, COPD, and osteoarthritis and no known cardiac issues nor cardiac workup in the past. On 02/02/[address] Rehman for generalized malaise and was diagnosed with bronchitis and conjunctivitis and started on antibiotics and symptoms improved then he felt poorly again. On 02/14/2017, he was getting into his car for an eye doctor appointment when his right knee gave out and he fell onto the right knee. His helped him get into the car and he went to the eye appointment. By 02/16, Tuesday his right knee pain was worse and he saw his PCP, Dr. Rehman who recommended he go to the ER. In ER he was hypoxic with O2 sat 89%, WBC 23.2, neutrophils elevated. Trop negative, ProBNP 468, and UTI. ECG: A-fib, HR 100, LAFB, possible septal and lateral old infarct. CXR: pneumonia with congestion and COPD. CT of knee: no fracture but joint effusion with severe degenerative changes. In ER he was given Rocephin IV. He was admitted under the hospitalist who consulted Dr. Fowler for Afib. Pt denies chest pain, palpitations, irregular or fast heart beat, SOB, he denies feeling dizzy, lightheaded or feeling like he could pass out nor has he passed out in the past. On 02/21/17 short acting Cardizem to was changed to long acting 180mg daily and Lovenox was changed to Eliquis 5mg po BID for anticoagulation to prevent stroke. He was transferred to IRU. Review of Systems - Constitutional Constitutional: Present: anorexia, fatigue. Absent: chills, fever(s) - EENMT Eyes: Absent: change in vision Balance: Absent: vertigo Mouth/Throat: Absent: sore throat - Cardiovascular Cardiovascular: Present: dyspnea on exertion. Absent: chest pain, palpitations , syncope - Respiratory Respiratory: Present: cough, dyspnea, dyspnea on exertion, wheezing - Gastrointestinal Gastrointestinal: Absent: abdominal pain, diarrhea, nausea, vomiting - Musculoskeletal Musculoskeletal: Present: myalgias - Neurological Neurological: Absent: dizziness - Endocrine Endocrine: Absent: palpitations PFSH Patient Stated Medical History Transient Ischemic Attacks ( Yes: possibly-in 1998 TIA) Cataracts Yes: removed Cardiac Arrhythmia Yes Hypertension Yes Bronchitis Yes Chronic Obstructive Pulmonary Yes Disease (COPD) Pneumonia Yes: admitted 2 days ago, hypoxia Sleep Apnea No Constipation Yes Hx Incontinence No Other Musculoskeletal Yes: TIA no apperent residuals Other Infectious Yes: SKIN INFECTION OF WOUND, YEARS AGO. Other Yes: jaw bilateral pops per patient Clinic Medical History (Last Updated 02/02/17 @ 14:18 by Franca Glynn MA) HTN (hypertension) (Acute Medical) Surgical History: Appendectomy. Right leg surgery/infection site. nose surgery. L3-S1 laminectomy & fusion. left cataract extraction Family History: Father history of depression. Mother history of asthma. Patient is the youngest sibling of 9 total. He is the only sibling still alive. He is unclear on the medical history of his siblings - Social History Smoking status: Former smoker Substance use type: does not use Alcohol intake frequency: does not drink Housing: house Household members: spouse, children Current occupational status: retired Current residence: Apartment/Private Home Medications Home Medications Medication Instructions Recorded Confirmed Type Breo Ellipta (fluticasone 100 1 inh INH Q24H 02/02/17 02/16/17 History mcg-vilanterol 25 mcg/dose) powder for inhalation Cozaar (losartan) 50 mg tablet 50 mg PO .QD 90 Days tab 02/02/17 02/16/17 History Flonase (Fluticasone) 50 mcg nasal 1 spray INTRANASAL DAILY 30 Days 02/02/17 History spray #16 Lopressor (metoprolol tartrate) 50 50 mg PO BID 90 Days tab 02/02/17 02/16/17 History mg tablet Spiriva Respimat (tiotropium 2 puff INH PRN 02/02/17 02/16/17 History bromide) 2.5 mcg/actuation, inhalation Cholecalciferol [Vit. D-3] 1,000 unit PO DAILY 02/16/17 02/16/17 History Potassium Chloride 20 meq PO DAILY 02/16/17 02/16/17 History Allergies Allergy/AdvReac Type Severity Reaction Status Date / Time No Known Allergies Allergy Verified 02/16/17 12:42 Exam Vital signs: Temperature 97.7 F 10/24/17 08:08 Pulse Rate 101 H 02/22/17 08:08 Respiratory Rate 18 02/22/17 10:56 Blood Pressure 142/75 H 02/22/17 08:08 Pulse Oximetry 95 02/22/17 08:08 - Constitutional no acute distress, obese, cooperative - Routine HEENT Exam Head: Present: normocephalic ENT: Present: mucous membranes moist - Routine Neck Exam Absent: JVD, carotid bruit - Routine Chest/Breast/Axilla Exam Chest wall: Absent: tenderness - Routine Respiratory Exam Present: CTA bilaterally, diminished air movement (bases) - Routine Cardiovascular Exam Present: no murmur. Absent: JVD - Routine Abdominal Exam Present: soft, normoactive bowel sounds - Routine Skin Exam Present: intact, dry, warm - Routine Neurological Exam Present: alert, oriented X3 - Routine Psychiatric Exam Present: normal affect, normal thought process Results 02/22/17 04:19 02/22/17 04:19 CBC 02/22/17 Range/Units 04:19 WBC 6.9 (4.5-11.0) T/MM3 RBC 4.03 L (4.50-5.90) M/MM3 Hgb 11.9 L (13.5-17.5) GM/DL Hct 35.7 L (41-53) % Plt Count 331 (130-400) T/MM3 Neut # (Auto) 3.9 (1.8-7.7) T/MM3 Lymph # (Auto) 1.4 (1-4.8) T/MM3 [place] # (Auto) 0.8 (0-0.8) T/MM3 Eos # (Auto) 0.7 H (0-0.5) T/MM3 Baso # (Auto) 0.0 (0-0.2) T/MM3 Comprehensive Metabolic Panel 02/22/17 Range/Units 04:19 Sodium 137 (134-144) MEQ/L Potassium 3.7 (3.6-5) MEQ/L Chloride 99 (98-107) MEQ/L Carbon Dioxide 31 H (22-30) MEQ/L BUN 10.0 (9-20) MG/DL Creatinine 0.7 L (0.8-1.5) MG/DL Glucose 108 (75-110) MG/DL Calcium 8.9 (8.4-10.2) MG/DL Intake and Output 02/21/17 02/22/17 02/22/17 22:59 06:59 14:59 Intake Total 660 / 660 Output Total 200 / 200 800 / 800 Balance -200 / -200 -800 / -800 660 / 660 Intake: Oral 660 / 660 Output: Urine 200 / 200 800 / 800 Other: Urine Appearance Clear Clear Urine Color Straw Straw # Voids 1 Weight 207 lb 0.225 oz Assessment and Plan - Assessment and Plan (1) Atrial fibrillation Current visit: No Status: Acute Continue Cardizem and Metoprolol for rate control - Continue Eliquis for anticoagulation - Plan DCCV after at least 4 weeks of anticoagulation (2) CAP (community acquired pneumonia) Current visit: Yes Status: Acute (3) HTN (hypertension) Current visit: Yes Status: Chronic Hospital Course Summary Disclaimer: The visit summary below is not to be considered part of the above Progress Note. <Duarte Fowler - Last Filed: 02/25/17 08:05> [facility] Patient Stated Medical History Transient Ischemic Attacks ( Yes: possibly-in 1998 TIA) Cataracts Yes: removed Cardiac Arrhythmia Yes Hypertension Yes Bronchitis Yes Chronic Obstructive Pulmonary Yes Disease (COPD) Pneumonia Yes: admitted 2 days ago, hypoxia Sleep Apnea No Constipation Yes Hx Incontinence No Other Musculoskeletal Yes: TIA no apperent residuals Other Infectious Yes: SKIN INFECTION OF WOUND, YEARS AGO. Other Yes: jaw bilateral pops per patient Clinic Medical History (Last Updated 02/02/17 @ 14:18 by Franca Glynn MA) HTN (hypertension) (Acute Medical) Exam Vital signs: Temperature 98.0 F 02/24/17 21:27 Pulse Rate 78 02/24/17 21:27 Respiratory Rate 18 02/24/17 21:27 Blood Pressure 136/66 02/24/17 21:27 Pulse Oximetry 93 02/24/17 21:27 Results 02/22/17 04:19 02/22/17 04:19 Intake and Output 02/24/17 02/25/17 02/25/17 22:59 06:59 14:59 Intake Total 820 / 820 Output Total 300 / 300 720 / 720 Balance 520 / 520 -720 / -720 Intake: Oral 820 / 820 Output: Urine 300 / 300 720 / 720 Other: Urine Appearance Clear Clear Urine Color Yellow Yellow Urine Odor Normal Normal Assessment and Plan - Attestation Attestation Narrative: 02/25/17 08:05 Recommendation After examining the patient I agree with the above assessment. I am involved in the formulation of the patient's plan of care. - Assessment and Plan (1) CAP (community acquired pneumonia) Current visit: Yes Status: Acute (2) Atrial fibrillation Current visit: No Status: Acute (3) HTN (hypertension) Current visit: Yes Status: Chronic Hospital Course Summary Disclaimer: The visit summary below is not to be considered part of the above Progress Note.
[2017-02-22] MEDS ORDERED: HYDROCODONE/APAP 5mg/325mg TABLET PO PRN (18:08)
[2017-02-22] MEDS: FLUTICASONE NASAL SPRAY 50mcg EA NOSTRIL SCH (20:41)
[2017-02-22] MEDS: FLUTICASONE/VILANTEROL 100/25mcg INHALER ORAL INH SCH (20:41)
[2017-02-22] MEDS ORDERED: SENNA + DOCUSATE TABLET PO SCH (21:00)
[2017-02-22] MEDS ORDERED: APIXABAN 5 MG TABLET PO SCH (21:00)
[2017-02-23] MEDS: HYDROCODONE/APAP 5mg/325mg TABLET PO PRN ×4 (06:27→21:52)
[2017-02-23] MEDS ORDERED: POLYETHYL GLYCOL 3350 17gm PACKET PO SCH (09:00)
[2017-02-23] MEDS: APIXABAN 5 MG TABLET PO SCH ×2 (09:54→21:52)
[2017-02-23] MEDS: SENNA + DOCUSATE TABLET PO SCH ×2 (09:55→21:52)
[2017-02-23] MEDS: POLYETHYL GLYCOL 3350 17gm PACKET PO SCH (09:55)
[2017-02-23] MEDS: SALINE FLUSH 10ml SYRINGE IV PRN ×2 (09:55→17:20)
[2017-02-23] MEDS: FLUTICASONE NASAL SPRAY 50mcg EA NOSTRIL SCH (09:56)
--- NOTE | 2017-02-23 11:14 | IRU Progress Note ---
- Subjective/Serverity of Illness Mr. Ramires was evaluated in his room on the acute inpatient rehabilitation unit. He reports he did have some discomfort in the right knee as well as some weakness in the right knee upon ambulation to the dining area and rehabilitation area. Otherwise he states that he still has a mild cough with occasional sputum production. He does not sense that he is significantly short of breath. He denies any chest pains. His states that his bowels are moving adequately. Updated on current medical issues as follows: 1. LLL pneumonia, community-acquired. Symptomatically he seems to be doing well. Has an occasional cough. He denies shortness of breath. He remains on doxycycline without known side effects. States that bowels are normal and not diarrhea at present. He remains afebrile. 2. New onset acute respiratory failure with hypoxemia. Oxygen requirements have improved. He no longer requires supplemental oxygen and his saturations are in the 90s on room air. 3. New onset atrial fibrillation with new medications started (diltiazem and Eliquis). He is followed by cardiology in this regard. He states he cannot tell when he has an irregular heartbeat. Today on exam he seems to be in a regular rhythm. Tolerating medications well without evidence of bleeding. Exam Vital Signs: Temperature 98.1 F 02/22/17 21:51 Pulse Rate 81 02/22/17 21:51 Respiratory Rate 16 02/23/17 07:30 Blood Pressure 143/73 H 02/22/17 21:51 Pulse Oximetry 93 02/23/17 07:30 Height/Weight/BMI: Height 1.75 m Weight 93.9 kg Comments: The patient is awake, alert and oriented and in no acute distress. Pupils are equal. The neck is supple. Chest: Generalized reduced breath sounds. In particular left base sounds diminished compared to the right base. Cor: RR with no gallop, click nor murmur. Has history of atrial fibrillation. Currently sounds as though he is in a regular rhythm. Abd: soft with normo-active bowel sounds. There are no masses, no tenderness and no guarding. Extremities: No edema is noted. There are good pulses in both ankles. No cyanosis is present. Right knee remains puffy but not warm nor red. Results IRU - Labs Labs: Have reviewed lab work as well as other providers notes. IRU A/P (1) CAP (community acquired pneumonia) Qualifiers: Laterality: left Lung location: lower lobe of lung Qualified Code(s): J18.1 - Lobar pneumonia, unspecified organism Current visit: Yes Status: Acute Symptomatically doing well. Has occasional cough. Reduced breath sounds left base. (2) Atrial fibrillation Qualifiers: Atrial fibrillation type: paroxysmal Qualified Code(s): I48.0 - Paroxysmal atrial fibrillation Current visit: No Status: Acute He sounds as though he is in a regular rhythm at present. He denies any symptoms of palpitations. Denies chest pain. Cardiology following as well. Remains on Eliquis without evidence of bleeding. (3) Osteoarthritis Qualifiers: Osteoarthritis location: knee Osteoarthritis type: primary Laterality: right Qualified Code(s): M17.11 - Unilateral primary osteoarthritis, right knee Current visit: No Status: Acute Does have significant pain in the right knee with ambulation. Likely this is related to his recent pseudogout as well as his chronic osteoarthritis as evidenced on CT scan and arthroscopy. (4) Pseudogout of right knee Current visit: Yes Status: Acute (5) Acute hypoxemic respiratory failure Current visit: Yes Status: Resolved His oxygen requirements have improved. At the present time he is doing well with room air. It is possible he will need to do exercise oximetry prior to going home. DVT Prophylaxis: SCD's, Eliquis Resuscitation Status: Full Code - Course Hospital Course: Luan Dale MD: 02/23/17 11:15 He is doing well respiratory mcnamara. Has occasional cough only. Oxygenation is improved. Right knee painful with ambulation. Tolerating therapy well. - Interventions to Obtain Goals PT Treatment Plan: Balance/Proprioception, Functional Activities, Gait Training , Patient/Family Education, Therapeutic Exercise OT Treatment Plan: ADL (Basic Care), Balance Training, Pt./Family Education, Ther. Exercise for ADL Goals Progress/Modifications: Time spent with patient and on floor reviewing data and documentin min Barriers to dismissal: Pain in right knee, stability of cardiac status, resolution of pneumonia Medical decision-making: At the present time his respiratory failure appears to have resolved. We will likely need to do exercise oximetry prior to dismissal. He is able to ambulate but has quite a bit of pain in the right knee likely secondary to the pseudogout plus his underlying osteoarthritis. He is afebrile and his white count is normal. Has mild anemia. Patient does have history of intermittent/paroxysmal atrial fibrillation. Today he sounds as though he is in a regular rhythm. He is being followed by cardiology as well and is on Eliquis and diltiazem. Please note that the patient's individual plan of care was developed and documented today, requiring review of therapy notes, medical conditions and anticipated functional recovery. This required additional medical decision making with regard to interaction of the patient's medical issues with the anticipated functional recovery. Please see separate document
--- NOTE | 2017-02-23 11:22 | IRU Plan of Care ---
[facility] Overall Plan of Care - Date Date: 02/23/17 - Patient Impairments (1) Atrial fibrillation Qualifiers: Atrial fibrillation type: paroxysmal Qualified Code(s): I48.0 - Paroxysmal atrial fibrillation Code(s): I48.91 - Unspecified atrial fibrillation Status: Acute Classification: Present on IRF Admission, IRF Tx That Should Address Diagnosis, Diagnosis Requiring Medical Follow Up (2) CAP (community acquired pneumonia) Qualifiers: Laterality: left Lung location: lower lobe of lung Qualified Code(s): J18.1 - Lobar pneumonia, unspecified organism Code(s): J18.9 - Pneumonia, unspecified organism Status: Acute Classification: Present on IRF Admission, IRF Tx That Should Address Diagnosis, Diagnosis Requiring Medical Follow Up (3) HTN (hypertension) Code(s): I10 - Essential (primary) hypertension Status: Chronic (4) Osteoarthritis Qualifiers: Osteoarthritis location: knee Osteoarthritis type: primary Laterality: right Qualified Code(s): M17.11 - Unilateral primary osteoarthritis, right knee Code(s): M19.90 - Unspecified osteoarthritis, unspecified site Status: Acute Classification: Present on IRF Admission, IRF Tx That Should Address Diagnosis, Diagnosis Requiring Medical Follow Up (5) Pseudogout of right knee Code(s): M11.261 - Other chondrocalcinosis, right knee Status: Acute Classification: Diagnosis Requiring Medical Follow Up - Relevant Changes Relevant Changes: No Reviewed: I have reviewed the patient's information and concur with the finding and results of the pre-admission screen. Certification: I certify the patient for rehabilitation. - Medical Prognosis Medical Prognosis: Good Vital Signs: Last Vital Signs Temp 98.1 F 02/22/17 21:51 Pulse 81 02/22/17 21:51 Resp 16 02/23/17 07:30 BP 143/73 H 02/22/17 21:51 Pulse Ox 93 02/23/17 07:30 - Anticipated Interventions Anticipated Interventions: The patient requires inpatient IRF care for PT, OT, and/or ST for residuals remaining from LLL pneumonia, new onset atrial fib, pseudogout of right knee resulting in muscular weakness and strength deficits. An individualized overall plan of care has been developed after careful review of the patient's preadmission screening, post admission physician evaluation and assessments of all therapy disciplines and/or other pertinent clinicians involved in treating the patient. This indicates medical necessity and rehabilitation necessity have been established through a thorough review of all available medical information. ROM Deficit: Right Lower Extremity Strength Deficits: Right Lower Extremity - Current Functional Status Failed Alternative Therapy: Arrived from Acute Care Patient Requires: The patient requires oversight by rehabilitation physician to manage their rehabilitation treatment plan and multidisciplinary approach to care that can only be provided in an IRF and requires a multidisciplinary approach to care, provided by professional PTs, OTs, STs, rehabilitation nurses, and may require STs, dieticians, and RTS. This is not available in lesser levels of care. Physical Therapy Minutes: 90 Occupational Therapy Minutes: 90 Therapy: The patient is to receive therapy at least 5 days a week. - Anticipated LOS/Outcomes Anticipated Functional Outcome: Expected functional improvement include: -- Modified independant to independant ambulation with or without assistive device -- Modified independant to independant ADL's with or without assistive device -- Return to pre-morbid level of mobility with modified independent level of functioning -- Maximize level of mobility and ADL's to decrease burden on any caregiver involved with this patient's care Anticipated Length of Stay (days): 10 Anticipated DC Destination: Home, Self Care, Home Health Service Home Safety Plan: The patient will be provided with the development of a Home Safety Plan for return to a home or home-like environment and and to ensure safety post discharge. - Plan to Avoid Complications Barriers to Attaining Goals: Weakness, Pain Control, Medical Limitation Plan to Avoid Complications: The patient cannot receive this care in a lesser intensive setting such as Retirement or Outpatient Therapy due to the patient requiring the following : Recall for close monitoring of oxygen saturations, strengthening of the right knee to avoid falls and readmission, monitoring for evidence of worsening respiratory function or worsening pneumonia.
--- NOTE | 2017-02-23 14:04 | Cardiology Progress Note ---
<Jihan Jhaveri - Last Filed: 02/23/17 17:50> Subjective Principal diagnosis: Atrial Fibrillation Interval history: CC: consulted Dr. Fowler for Afib. Pt denies chest pain, palpitations, irregular or fast heart beat, SOB, he denies feeling dizzy, lightheaded or feeling like he could pass out nor has he passed out in the past. On 02/21/17 short acting Cardizem to was changed to long acting 180mg daily and Lovenox was changed to Eliquis 5mg po BID for anticoagulation to prevent stroke. This is his second day in IRU, reports feeling well. Exam Vital signs: Temperature 98.1 F 02/22/17 21:51 Pulse Rate 81 02/22/17 21:51 Respiratory Rate 16 02/23/17 07:30 Blood Pressure 143/73 H 02/22/17 21:51 Pulse Oximetry 93 02/23/17 07:30 - Constitutional no acute distress - Routine HEENT Exam Head: Present: normocephalic, atraumatic Eye: Present: PERRL, conjunctivae pink - Routine Neck Exam Absent: JVD, carotid bruit - Routine Respiratory Exam Present: CTA bilaterally - Routine Cardiovascular Exam Present: S1, S2, no murmur - Routine Abdominal Exam Present: soft, normoactive bowel sounds - Routine Skin Exam Present: intact - Routine Neurological Exam Present: alert, oriented X3 - Routine Psychiatric Exam Present: normal affect Assessment and Plan - Assessment and Plan (1) CAP (community acquired pneumonia) Current visit: Yes Status: Acute (2) Atrial fibrillation Current visit: No Status: Acute (3) HTN (hypertension) Current visit: Yes Status: Chronic - Assessment and Plan remains in afib rate controlled. Plan to cardiovert in 5 weeks. Stable from a cardiac standpoint. Hospital Course Summary Disclaimer: The visit summary below is not to be considered part of the above Progress Note. <Duarte Fowler - Last Filed: 02/25/17 08:01> Exam Vital signs: Temperature 98.0 F 02/24/17 21:27 Pulse Rate 78 02/24/17 21:27 Respiratory Rate 18 02/24/17 21:27 Blood Pressure 136/66 02/24/17 21:27 Pulse Oximetry 93 02/24/17 21:27 Assessment and Plan - Assessment and Plan (1) CAP (community acquired pneumonia) Current visit: Yes Status: Acute (2) Atrial fibrillation Current visit: No Status: Acute (3) HTN (hypertension) Current visit: Yes Status: Chronic - Attestation Attestation Narrative: 02/25/17 08:01 Recommendation After examining the patient I agree with the above assessment. I am involved in the formulation of the patient's plan of care. Hospital Course Summary Disclaimer: The visit summary below is not to be considered part of the above Progress Note.
[2017-02-24] MEDS: APIXABAN 5 MG TABLET PO SCH ×2 (09:41→21:10)
[2017-02-24] MEDS: SALINE FLUSH 10ml SYRINGE IV PRN ×2 (09:41→18:04)
[2017-02-24] MEDS: SENNA + DOCUSATE TABLET PO SCH ×2 (09:43→21:10)
[2017-02-24] MEDS: FLUTICASONE NASAL SPRAY 50mcg EA NOSTRIL SCH (09:43)
[2017-02-24] MEDS: POLYETHYL GLYCOL 3350 17gm PACKET PO SCH (09:43)
[2017-02-24] MEDS: HYDROCODONE/APAP 5mg/325mg TABLET PO PRN ×3 (09:51→22:16)
[2017-02-25] MEDS: HYDROCODONE/APAP 5mg/325mg TABLET PO PRN ×2 (06:08→21:37)
[2017-02-25] MEDS: APIXABAN 5 MG TABLET PO SCH ×2 (08:58→21:37)
[2017-02-25] MEDS: POLYETHYL GLYCOL 3350 17gm PACKET PO SCH (08:58)
[2017-02-25] MEDS: SENNA + DOCUSATE TABLET PO SCH ×2 (08:58→21:37)
[2017-02-25] MEDS: FLUTICASONE NASAL SPRAY 50mcg EA NOSTRIL SCH (09:01)
--- NOTE | 2017-02-25 09:45 | IRU Progress Note ---
- Subjective/Serverity of Illness Mr. Ramires was evaluated in his room on the inpatient rehabilitation unit. He reports some shortness of breath with activity although he is tolerating therapy adequately. Has occasional cough but no significant sputum. He is now off of his doxycycline. He reports that his bowels are moving adequately and there is no diarrhea. He reports his appetite is good. He currently is able to maintain adequate oxygenation off supplemental oxygen. Updated on current medical issues as follows: 1. LLL pneumonia, community-acquired. Does have some shortness of breath with activity. Occasional cough but no sputum. He completed 7 days of doxycycline on February 23. Remains on breathing treatments. 2. New onset acute respiratory failure with hypoxemia. Oxygen requirements are less. He is maintaining saturations above 90% on room air. 3. New onset atrial fibrillation with new medications started (diltiazem and Eliquis). Suspect he is in chronic atrial fibrillation at present. Cardiology is following. No evidence of heart failure. Remains on diltiazem and Eliquis. Plans are for cardioversion in about 5 weeks. Exam Vital Signs: Temperature 98.2 F 02/25/17 08:00 Pulse Rate 82 02/25/17 08:00 Respiratory Rate 15 02/25/17 08:00 Blood Pressure 132/67 02/25/17 08:00 Pulse Oximetry 90 02/25/17 08:00 Height/Weight/BMI: Height 1.75 m Weight 93.9 kg Comments: The patient is awake, alert and oriented and in no acute distress. Pupils are equal. The neck is supple. Chest: Reduced breath sounds and wheezes noted left lower lobe. Cor: irregular rhythm with no gallop, click nor murmur Abd: soft with normo-active bowel sounds. There are no masses, no tenderness and no guarding. Extremities: No edema is noted. There are good pulses in both ankles. No cyanosis is present. Results IRU - Labs Labs: I reviewed other providers notes as well as vital signs and blood work. IRU A/P (1) Atrial fibrillation Qualifiers: Atrial fibrillation type: persistent Qualified Code(s): I48.1 - Persistent atrial fibrillation Current visit: No Status: Acute Continues to be in atrial fibrillation. He is on Cardizem and Eliquis without bleeding problems and without known side effects. He is compensated. (2) CAP (community acquired pneumonia) Qualifiers: Laterality: left Lung location: lower lobe of lung Qualified Code(s): J18.1 - Lobar pneumonia, unspecified organism Current visit: Yes Status: Acute He has completed 7 days of doxycycline. Continues to have wheezes and reduced breath sounds left base. Symptomatically doing well. (3) HTN (hypertension) Current visit: Yes Status: Chronic (4) Osteoarthritis Qualifiers: Osteoarthritis location: knee Osteoarthritis type: primary Laterality: right Qualified Code(s): M17.11 - Unilateral primary osteoarthritis, right knee Current visit: No Status: Acute Right knee pain continues to be an impediment to his progress and his functional recovery. However he is cooperative with therapy and improving. (5) Pseudogout of right knee Current visit: Yes Status: Resolved No evidence of active inflammation at present. Cultures were negative of the knee and I think likely he had pseudogout flareup due to his severe underlying osteoarthritis. Continues to have pain with ambulation. DVT Prophylaxis: SCD's, Eliquis Resuscitation Status: Full Code - Course Hospital Course: Luan Dale MD: 02/23/17 11:15 He is doing well respiratory mcnamara. Has occasional cough only. Oxygenation is improved. Right knee painful with ambulation. Tolerating therapy well. 02/25/17 09:46 He is improving with both occupational therapy and physical therapy. And using his mild cough without sputum. Reduced oxygen requirements. Remains in atrial fibrillation on Eliquis and diltiazem. - Interventions to Obtain Goals PT Treatment Plan: Balance/Proprioception, Functional Activities, Gait Training , Patient/Family Education, Therapeutic Exercise OT Treatment Plan: ADL (Basic Care), Balance Training, Pt./Family Education, Ther. Exercise for ADL Goals Progress/Modifications: Time spent with patient and on floor reviewing data and documentin min Barriers to dismissal: Dyspnea with activity, right knee pain, endurance Medical decision-making: Reviewed his cardiac status as well as pulmonary status. Does have reduced breath sounds and wheezes in left lower lobe. He is now off doxycycline. In the absence of leukocytosis or fever, we will leave him off the antibiotic now. His oxygen requirements have improved. He remains in atrial fibrillation. Seems to be content tolerated and compensated at present. Plans are to continue therapy at the present time. I did weigh the pros and cons of continuing therapy in the face of atrial fibrillation and his pulmonary status and feel it is safe to continue.
--- NOTE | 2017-02-25 12:58 | IRU Team Meeting ---
IRU Team Meeting - Nursing Vital Signs: Vital Signs - 24 hr 02/24/17 14:44 02/24/17 16:00 02/24/17 20:16 Temperature 97.4 F Pulse Rate 74 Respiratory Rate 16 20 14 Blood Pressure 128/63 Pulse Oximetry 92 91 92 02/24/17 21:27 02/25/17 08:00 02/25/17 09:35 Temperature 98.0 F 98.2 F Pulse Rate 78 82 Respiratory Rate 18 15 12 Blood Pressure 136/66 132/67 Pulse Oximetry 93 90 Current Medications: Hydrocodone Bitart/Acetaminophen ([place] 5/325) 1 tab PO Q4H PRN PRN Reason: Pain Last Admin: 02/25/17 06:08 Dose: 1 tab Apixaban (Eliquis) 5 mg PO BID [facility] Last Admin: 02/25/17 08:58 Dose: 5 mg Cholecalciferol (Vit. D-3) 1,000 unit PO DAILY [facility] Last Admin: 02/25/17 08:58 Dose: 1,000 unit Ciprofloxacin (Ciloxan) 1 drops EACH EYE .COMPLEX [facility] Diltiazem HCl (Cardizem Cd) 180 mg PO DAILY [facility] Last Admin: 02/25/17 08:58 Dose: 180 mg Fluticasone Propionate (Flonase) 1 spray EA NOSTRIL DAILY [facility] Last Admin: 02/25/17 09:01 Dose: 1 spray Fluticasone/Vilanterol (Breo Ellipta Inhaler) 1 puff ORAL INH Q24H [facility] Last Admin: 02/22/17 20:41 Dose: Not Given Levalbuterol HCl (Xopenex 1.25mg/3ml) 1.25 mg AEROSOL RTTID [facility] Last Admin: 02/25/17 09:34 Dose: 1.25 mg Losartan Potassium (Cozaar) 50 mg PO .QD [facility] Metoprolol Tartrate (Lopressor) 50 mg PO BIDBS [facility] Last Admin: 02/25/17 08:57 Dose: 50 mg Non-Formulary Medication (Tiotropium [place] [Spiriva Respimat]) 2 puff PO PRN [facility] Ondansetron HCl (Zofran) 4 mg IVP Q6H PRN PRN Reason: Nausea &/or vomiting Polyethylene Glycol (Miralax) 17 gm PO DAILY [facility] Last Admin: 02/25/17 08:58 Dose: Not Given Potassium Chloride (K-Dur) 20 meq PO DAILY [facility] Last Admin: 02/22/17 20:42 Dose: Not Given Senna/Docusate Sodium (Senna Plus Tablet) 2 tab PO BID [facility] Last Admin: 02/25/17 08:58 Dose: 2 tab Sodium Chloride (Iv Flush) 10 ml IV PRN PRN PRN Reason: Flushing Last Admin: 02/24/17 18:04 Dose: 10 ml Current Medical Issues: Recent treatment for left lower lobe pneumonia, recent hypoxemic respiratory failure, new onset atrial fibrillation, osteoarthritis right knee with recent pseudogout Comments: I certify that I personally led the interdisciplinary team meeting and agree with comments, barriers and goals indicated. Team meeting was held in the patient's room with the patient and the following family members present: . Mr. Ramires has now concluded his 7 days of doxycycline treatment. He still has a few crackles in the left base along with wheezes and he is still receiving Xopenex in this regard. He is afebrile. His appetite is good. He remains on Eliquis and diltiazem as well as metoprolol. It sounds like he is in chronic atrial fibrillation or at least persistent at present. Anticipation is for cardioversion attempt in about 5 weeks. He does have some dyspnea with activity but overall is tolerating therapy well. He does have quite a bit of discomfort and "weakness" in the right knee from his severe osteoarthritis. - Physical Therapy Comments: The patient is improving with physical therapy. He is standby assistance level at bed/chair/wheelchair transfers. He is maximal assistance for walking 55 feet. He can propel in wheelchair 65 feet. He climbs stairs with maximal assistance to steps. He is standby assist for car transfers. His gait is quite limited in distance due to pain in the right knee. - Occupational Therapy Comments: He is cooperative and working well with occupational therapy as well. He is now modified independent functioning for eating and grooming. He is standby assist for all other activities. He would benefit from a tub bench. Patient and educated in this area. He is limited in functional improvement secondary to right knee pain. - Goals Goals 1. Toileting at a modified independent level of functioning 2. Increase activity tolerance to 60 minutes with one rest break to facilitate ADLs and other functional mobility tasks 3. Achieve use a front-wheeled walker 150 feet with ambulation at modified independent level of functioning 4. Limit pain increase to no more than 2 points from baseline with activity. - Barriers to Discharge Barriers to Attaining Goals: Weakness, Endurance, Pain Control - Care Plan Anticipated DC Destination: Home Health Service I have led this team conference and agree with the plan. Anticipated Length of Stay (days): 5
--- NOTE | 2017-02-25 15:25 | Cardiology Progress Note ---
<Ritu Smith - Last Filed: 02/25/17 17:54> Subjective Principal diagnosis: Atrial Fibrillation Interval history: Prabhu is seen in follow up for AFib. He is in SR at this time. He denies chest pain, pressure or palpitations, dyspnea or other complaints. Exam Vital signs: Temperature 98.2 F 02/25/17 08:00 Pulse Rate 82 02/25/17 08:00 Respiratory Rate 12 02/25/17 09:35 Blood Pressure 132/67 02/25/17 08:00 Pulse Oximetry 90 02/25/17 08:00 - Constitutional no acute distress, well nourished, well developed, cooperative - Routine HEENT Exam Head: Present: normocephalic ENT: Present: mucous membranes moist - Routine Neck Exam Absent: JVD, carotid bruit - Routine Chest/Breast/Axilla Exam Chest wall: Absent: tenderness - Routine Respiratory Exam Present: CTA bilaterally. Absent: rales, crackles - Routine Cardiovascular Exam Present: RRR. Absent: JVD - Routine Abdominal Exam Present: soft, normoactive bowel sounds - Routine Extremities Exam Present: no edema - Routine Skin Exam Present: intact, dry, warm - Routine Neurological Exam Present: alert, oriented X3 - Routine Psychiatric Exam Present: normal affect, normal thought process - Additional findings Additional findings: Hydrocodone Bitart/Acetaminophen ([place] 5/325) 1 tab PO Q4H PRN PRN Reason: Pain Last Admin: 02/25/17 06:08 Dose: 1 tab Apixaban (Eliquis) 5 mg PO BID [facility] Last Admin: 02/25/17 08:58 Dose: 5 mg Cholecalciferol (Vit. D-3) 1,000 unit PO DAILY [facility] Last Admin: 02/25/17 08:58 Dose: 1,000 unit Ciprofloxacin (Ciloxan) 1 drops EACH EYE .COMPLEX [facility] Diltiazem HCl (Cardizem Cd) 180 mg PO DAILY [facility] Last Admin: 02/25/17 08:58 Dose: 180 mg Fluticasone Propionate (Flonase) 1 spray EA NOSTRIL DAILY [facility] Last Admin: 02/25/17 09:01 Dose: 1 spray Fluticasone/Vilanterol (Breo Ellipta Inhaler) 1 puff ORAL INH Q24H [facility] Last Admin: 02/22/17 20:41 Dose: Not Given Levalbuterol HCl (Xopenex 1.25mg/3ml) 1.25 mg AEROSOL RTTID [facility] Last Admin: 02/25/17 09:34 Dose: 1.25 mg Losartan Potassium (Cozaar) 50 mg PO .QD [facility] Non-Formulary Medication (Tiotropium [place] [Spiriva Respimat]) 2 puff PO PRN [facility] Ondansetron HCl (Zofran) 4 mg IVP Q6H PRN PRN Reason: Nausea &/or vomiting Polyethylene Glycol (Miralax) 17 gm PO DAILY [facility] Last Admin: 02/25/17 08:58 Dose: Not Given Potassium Chloride (K-Dur) 20 meq PO DAILY [facility] Last Admin: 02/22/17 20:42 Dose: Not Given Senna/Docusate Sodium (Senna Plus Tablet) 2 tab PO BID [facility] Last Admin: 02/25/17 08:58 Dose: 2 tab Sodium Chloride (Iv Flush) 10 ml IV PRN PRN PRN Reason: Flushing Last Admin: 02/24/17 18:04 Dose: 10 ml Sotalol HCl (Betapace) 40 mg PO ACBID [facility] Assessment and Plan - Assessment and Plan (1) Atrial fibrillation Current visit: No Status: Acute SR today. - Change metoprolol to Sotalol for antiarrhythmic therapy - Telemetry please - EKG in am (2) CAP (community acquired pneumonia) Current visit: Yes Status: Acute (3) HTN (hypertension) Current visit: Yes Status: Chronic Hospital Course Summary Disclaimer: The visit summary below is not to be considered part of the above Progress Note. <Duarte Fowler - Last Filed: 02/28/17 12:56> Exam Vital signs: Temperature 97.9 F 02/28/17 08:00 Pulse Rate 70 02/28/17 08:00 Respiratory Rate 18 02/28/17 09:42 Blood Pressure 134/69 02/28/17 08:00 Pulse Oximetry 90 02/28/17 09:42 Assessment and Plan - Assessment and Plan (1) CAP (community acquired pneumonia) Current visit: Yes Status: Acute (2) Atrial fibrillation Current visit: No Status: Acute (3) HTN (hypertension) Current visit: Yes Status: Chronic - Attestation Attestation Narrative: 02/28/17 12:55 Recommendation After examining the patient I agree with the above assessment. I am involved in the formulation of the patient's plan of care. Hospital Course Summary Disclaimer: The visit summary below is not to be considered part of the above Progress Note.
[2017-02-25] MEDS: SOTALOL 80 MG TABLET PO SCH (18:20)
[2017-02-26] MEDS: SOTALOL 80 MG TABLET PO SCH ×2 (06:07→18:15)
[2017-02-26] MEDS: HYDROCODONE/APAP 5mg/325mg TABLET PO PRN ×3 (06:11→18:16)
[2017-02-26] MEDS: APIXABAN 5 MG TABLET PO SCH ×2 (10:27→20:43)
[2017-02-26] MEDS: FLUTICASONE NASAL SPRAY 50mcg EA NOSTRIL SCH (10:28)
[2017-02-26] MEDS: SENNA + DOCUSATE TABLET PO SCH ×2 (10:29→20:44)
[2017-02-26] MEDS: POLYETHYL GLYCOL 3350 17gm PACKET PO SCH (10:29)
--- NOTE | 2017-02-26 17:38 | Cardiology Progress Note ---
<Jihan Jhaveri - Last Filed: 03/01/17 21:39> Subjective Principal diagnosis: Atrial Fibrillation Interval history: Prabhu is seen in follow up for AFib. He is in SR at this time. He denies chest pain, pressure or palpitations, dyspnea or other complaints. He is up in the dining room eating. Exam Vital signs: Temperature 98.4 F 02/26/17 16:00 Pulse Rate 67 02/26/17 16:00 Respiratory Rate 20 02/26/17 17:05 Blood Pressure 148/69 H 02/26/17 16:00 Pulse Oximetry 96 02/26/17 17:05 - Constitutional no acute distress, well nourished - Routine HEENT Exam Head: Present: normocephalic, atraumatic Eye: Present: PERRL ENT: Present: mucous membranes moist - Routine Neck Exam Absent: carotid bruit - Routine Respiratory Exam Present: CTA bilaterally - Routine Cardiovascular Exam Present: RRR - Routine Skin Exam Present: intact - Routine Neurological Exam Present: alert, oriented X3 - Routine Psychiatric Exam Present: normal affect, normal thought process Assessment and Plan - Assessment and Plan (1) CAP (community acquired pneumonia) Current visit: Yes Status: Resolved (2) Atrial fibrillation Current visit: No Status: Acute (3) HTN (hypertension) Current visit: Yes Status: Chronic - Assessment and Plan ECG today SR, Lt Anterior fascicular block, LVH, old [place], [id number] Continue Sotalol 40mg bid Eliquis 5mg bid Hospital Course Summary Disclaimer: The visit summary below is not to be considered part of the above Progress Note. <Duarte Fowler - Last Filed: 03/02/17 07:31> Exam Vital signs: Temperature 98.4 F 03/01/17 19:57 Pulse Rate 72 03/02/17 05:55 Respiratory Rate 16 03/01/17 21:15 Blood Pressure 139/71 03/01/17 19:57 Pulse Oximetry 92 03/01/17 21:04 Assessment and Plan - Assessment and Plan (1) CAP (community acquired pneumonia) Current visit: Yes Status: Resolved (2) Atrial fibrillation Current visit: No Status: Acute (3) HTN (hypertension) Current visit: Yes Status: Chronic - Attestation Attestation Narrative: 03/02/17 07:31 Recommendation After examining the patient I agree with the above assessment. I am involved in the formulation of the patient's plan of care. Hospital Course Summary Disclaimer: The visit summary below is not to be considered part of the above Progress Note.
[2017-02-27] MEDS: HYDROCODONE/APAP 5mg/325mg TABLET PO PRN ×4 (00:07→21:06)
[2017-02-27] MEDS: SOTALOL 80 MG TABLET PO SCH ×2 (06:02→17:52)
[2017-02-27] MEDS: SENNA + DOCUSATE TABLET PO SCH ×2 (09:11→21:05)
[2017-02-27] MEDS: APIXABAN 5 MG TABLET PO SCH ×2 (09:11→21:05)
[2017-02-27] MEDS: FLUTICASONE NASAL SPRAY 50mcg EA NOSTRIL SCH (09:12)
[2017-02-27] MEDS: POLYETHYL GLYCOL 3350 17gm PACKET PO SCH (09:12)
--- NOTE | 2017-02-27 15:41 | Progress Note ---
<ColbyEmilie D - Last Filed: 02/27/17 15:38> - Date 02/27/17 Subjective: Prabhu is seen today in follow up. He is sleeping, awakens easily. Reports right knee pain remains an issue. Does not report other concerns. Chart is reviewed for collateral information. No other acute needs reported. Objective Vital signs: Temperature 98.2 F 02/27/17 08:00 Pulse Rate 77 02/27/17 08:00 Respiratory Rate 16 02/27/17 09:45 Blood Pressure 143/71 H 02/27/17 08:00 Pulse Oximetry 94 02/27/17 09:45 Height/Weight/BMI: Height 1.75 m Weight 93 kg - Constitutional Present: no acute distress, well nourished, well developed, cooperative - Routine HEENT Exam Head: Present: normocephalic, atraumatic Eye: Present: EOMI, PERRL ENT: Present: mucous membranes moist - Routine Respiratory Exam Present: decreased breath sounds, CTA bilaterally. Absent: rhonchi, wheezes, crackles Comments: Diminished air flow. O2 sats low 90's on RA. - Routine Cardiovascular Exam Present: RRR, S1, S2, no murmur - Routine Abdominal Exam Present: soft, non distended, non tender - Routine Extremities Exam Present: edema (Trace bilateral pedal edema. ). Absent: cyanosis - Routine Musculoskeletal Exam Musculoskeletal: Present: joint swelling (right knee. Unable to fully examine due to clothing. ), limited range of motion. Absent: normal strength - Routine Skin Exam Present: intact, dry, warm - Routine Neurological Exam Present: alert, moving all extremities - Routine Psychiatric Exam Present: normal affect, normal thought process Results - Labs CBC & Chem 7: 02/26/17 03:50 02/26/17 03:50 Assessment and Plan (1) CAP (community acquired pneumonia) Current visit: Yes Status: Acute (2) HTN (hypertension) Current visit: Yes Status: Chronic (3) Pseudogout of right knee Current visit: Yes Status: Resolved Assessment and Plan: Impression Community-acquired pneumonia Failed outpatient treatment Acute respiratory failure with hypoxia Right knee pain with joint effusion Hypertension Osteoarthritis Atrial Fibrillation with variable rate. Plan: 02/27/17 Patient continues to report pain. Add low dose Tylenol arthritis Q8 hrs for pain control. PRN tramadol for breakthrough pain. Continue low dose [place]. PT/OT eval and tx. CV following- Cardizem/Sotalol/Eliquis. HR is stable. BP is fairly well controlled. Repeat labs in AM- may be able to restart Losartan. Hx. Chronic Lung disease- Holding Breo- will start Symbicort to prevent exacerbation. Hold off on restarting Spiriva due to recent variable HR. PRN Xopenex for any acute wheezing. Repeat labs in AM. DVT Prophylaxis: Eliquis Resuscitation Status: Full Code Hospital Course Summary Disclaimer: The visit summary below is not to be considered part of the above Progress Note. Hospital Course: 02/27/17 15:47 02/27/17 Patient continues to report pain. Add low dose Tylenol arthritis Q8 hrs for pain control. PRN tramadol for breakthrough pain. Continue low dose [place]. PT/OT eval and tx. CV following- Cardizem/Sotalol/Eliquis. HR is stable. BP is fairly well controlled. Repeat labs in AM- may be able to restart Losartan. Hx. Chronic Lung disease- Holding Breo- will start Symbicort to prevent exacerbation. Hold off on restarting Spiriva due to recent variable HR. PRN Xopenex for any acute wheezing. Repeat labs in AM. <Cliff Wu P - Last Filed: 02/28/17 18:18> - Date 02/28/17 Subjective: Seen and examined patient on same day as the above note. Agree with history, physical, assessment and plan. Comprehensive physical findings correlate to the above note. Documented on Dragon speech to text. Efforts to crack speech recognition errors performed, but variation may exist Objective Vital signs: Temperature 98.7 F 02/28/17 16:00 Pulse Rate 70 02/28/17 18:08 Respiratory Rate 20 02/28/17 16:00 Blood Pressure 134/65 02/28/17 16:00 Pulse Oximetry 89 L 02/28/17 16:00 Height/Weight/BMI: Height 5 ft 9 in Weight 93 kg Results - Labs CBC & Chem 7: 02/28/17 04:39 02/28/17 04:39 Assessment and Plan (1) CAP (community acquired pneumonia) Current visit: Yes Status: Acute (2) HTN (hypertension) Current visit: Yes Status: Chronic (3) Pseudogout of right knee Current visit: Yes Status: Resolved Hospital Course Summary Disclaimer: The visit summary below is not to be considered part of the above Progress Note.
[2017-02-27] MEDS: TRAMADOL 50 MG TABLET PO PRN (17:54)
[2017-02-28] MEDS: SOTALOL 80 MG TABLET PO SCH ×2 (06:08→18:08)
[2017-02-28] MEDS: TRAMADOL 50 MG TABLET PO PRN ×2 (06:13→20:00)
[2017-02-28] MEDS: SENNA + DOCUSATE TABLET PO SCH ×2 (09:07→20:01)
[2017-02-28] MEDS: APIXABAN 5 MG TABLET PO SCH ×2 (09:07→20:01)
[2017-02-28] MEDS: POLYETHYL GLYCOL 3350 17gm PACKET PO SCH (09:07)
[2017-02-28] MEDS: FLUTICASONE NASAL SPRAY 50mcg EA NOSTRIL SCH (09:08)
--- NOTE | 2017-02-28 10:34 | IRU Progress Note ---
- Subjective/Serverity of Illness Mr. Ramires is evaluated in his room on the inpatient rehabilitation unit. The patient has a history of left lower lobe pneumonia. Still has a cough which is somewhat loose but not really producing any sputum. He denies any chest pain but does report some dyspnea with exertion. The patient continues to struggle with right knee pain. A brace is in private place at the present time. He is not certain if it is helping or not. He does have underlying severe osteoarthritis and at some point hope to get the knee replaced. He is working with therapy and making progress. The patient has a history of paroxysmal atrial fibrillation. He is followed by cardiology. Remains on Eliquis and diltiazem in this regard. Updated on current medical issues which we are following and/or managin. LLL pneumonia, community-acquired. Has markedly diminished breath sounds in the left base and I would suspect likely has an effusion there. However this is fairly asymptomatic. Has a mild cough. He is somewhat short of breath with activity. Hospitalists are following. 2. New onset acute respiratory failure with hypoxemia. While he does remain on room air, saturations are bit lower at 90%. Hospitalists are following. 3. New onset atrial fibrillation with new medications started (diltiazem and Eliquis). He is converted to sinus mechanism. He is followed by cardiology. Remains on diltiazem and Eliquis without evidence of bleeding. Exam Vital Signs: Temperature 97.9 F 02/28/17 08:00 Pulse Rate 70 02/28/17 08:00 Respiratory Rate 18 02/28/17 09:42 Blood Pressure 134/69 02/28/17 08:00 Pulse Oximetry 90 02/28/17 09:42 Height/Weight/BMI: Height 1.75 m Weight 93 kg Comments: The patient is awake, alert and oriented and in no acute distress. Pupils are equal. The neck is supple. Chest: Markedly diminished breath sounds left base. Suspect effusion. Cor: RR with no gallop, click nor murmur Abd: soft with normo-active bowel sounds. There are no masses, no tenderness and no guarding. Extremities: No edema is noted. Right knee has a brace in place which I did not remove today. Results IRU - Labs Labs: I reviewed other providers notes. IRU A/P (1) Atrial fibrillation Qualifiers: Atrial fibrillation type: paroxysmal Qualified Code(s): I48.0 - Paroxysmal atrial fibrillation Current visit: No Status: Acute He appears to be in sinus mechanism at present. He appears to have paroxysmal atrial fibrillation. Remains on diltiazem with adequate control. He is also on Eliquis without evidence of bleeding. He does have some dyspnea with activity which is likely multifactorial and related to deconditioning, intermittent nature fibrillation as well as his recent pneumonia. (2) CAP (community acquired pneumonia) Qualifiers: Laterality: left Lung location: lower lobe of lung Qualified Code(s): J18.1 - Lobar pneumonia, unspecified organism Current visit: Yes Status: Acute Has markedly diminished breath sounds left base and likely an effusion here. Followed by hospitalists at present. He is off of antibiotics and relatively asymptomatic. (3) HTN (hypertension) Current visit: Yes Status: Chronic (4) Osteoarthritis Qualifiers: Osteoarthritis location: knee Osteoarthritis type: primary Laterality: right Qualified Code(s): M17.11 - Unilateral primary osteoarthritis, right knee Current visit: No Status: Acute Continues to have significant discomfort in the right knee which is a barrier to his progress. However he is making some improvement and continuing to work with therapies. (5) Pseudogout of right knee Current visit: Yes Status: Resolved DVT Prophylaxis: Eliquis Resuscitation Status: Full Code - Course Hospital Course: Luan Dale MD: 02/23/17 11:15 He is doing well respiratory mcnamara. Has occasional cough only. Oxygenation is improved. Right knee painful with ambulation. Tolerating therapy well. 02/25/17 09:46 He is improving with both occupational therapy and physical therapy. And using his mild cough without sputum. Reduced oxygen requirements. Remains in atrial fibrillation on Eliquis and diltiazem. 02/28/17 10:35 Does not require oxygen supplementation at present Seems to be back in sinus mechanism. He is improving with therapies. Right knee continues to be an impediment to his progress. Have discussed respiratory situation with the hospitalist team. 02/28/17 10:38 - Interventions to Obtain Goals PT Treatment Plan: Balance/Proprioception, Functional Activities, Gait Training , Patient/Family Education, Therapeutic Exercise OT Treatment Plan: ADL (Basic Care), Balance Training, Pt./Family Education, Ther. Exercise for ADL Goals Progress/Modifications: Time spent with patient and on floor reviewing data and documentin min Barriers to dismissal: Borderline oxygen saturations, right knee pain Medical decision-making: He does have markedly diminished breath sounds in the left base. I am concerned about possible effusion. In addition his white count is a bit up. Have discussed with the hospitalist service and they will do a chest x-ray and make further decisions. He seems to be stable for continued therapy and we will continue this at the present time. He is tolerating therapy well and making progress.
--- NOTE | 2017-02-28 12:21 | Progress Note ---
<Denise Solis - Last Filed: 02/28/17 12:17> - Date 02/28/17 Subjective: Prabhu is seen today in follow up for his recent pneumonia. He is seen while resting in his recliner, having just completed physical therapy. He denies any complaints or concerns including no chest pain, shortness of breath, abdominal pain, nausea, vomiting or diarrhea. Review of his vital signs revealed pulse ox in low 90's which appears to have been trending down over the past few days. He denies any cough or congestion. No known fevers. Exam reveals markedly diminished lung sounds in the left lower lobe. No wheezing or rhonchi. No respiratory distress or conversational dyspnea. Labs today revealed new leukocytosis with WBC at 12.4. Review of his chart indicates that he continues to have significant pain in his right knee but he denies any pain currently. His appetite has been stable and his bowels are moving. Objective Vital signs: Temperature 97.9 F 02/28/17 08:00 Pulse Rate 70 02/28/17 08:00 Respiratory Rate 18 02/28/17 09:42 Blood Pressure 134/69 02/28/17 08:00 Pulse Oximetry 90 02/28/17 09:42 Rhythm: Normal Sinus Rhythm Height/Weight/BMI: Height 5 ft 9 in Weight 205 lb 0.478 oz - Constitutional Present: no acute distress, well nourished, well developed, cooperative - Routine HEENT Exam Head: Present: normocephalic, atraumatic Eye: Present: PERRL. Absent: conjunctival icterus ENT: Present: mucous membranes moist - Routine Respiratory Exam Absent: accessory muscle use, dyspnea Comments: markedly diminished lung sounds to left lower base; no wheezing, stridor, rhonchi. No cough or respiratory distress. - Routine Cardiovascular Exam Present: RRR, S1, S2 - Routine Abdominal Exam Present: soft, normoactive bowel sounds, non tender - Routine Extremities Exam Present: edema (trace bilaterally), pulses intact Comments: knee brace noted to right knee. - Routine Back/Spine/Pelvis Exam Back/Spine: Present: kyphosis - Routine Musculoskeletal Exam Musculoskeletal: Present: moving extremities well, limited range of motion ( right knee) - Routine Skin Exam Present: dry, warm. Absent: jaundice Comments: afebrile. - Routine Neurological Exam Present: alert, moving all extremities, normal speech. Absent: facial asymmetry - Routine Lymphatic Exam Lymphatic: Absent: lymphedema - Routine Psychiatric Exam Present: cooperative Results - Labs CBC & Chem 7: 02/28/17 04:39 02/28/17 04:39 Assessment and Plan (1) CAP (community acquired pneumonia) Current visit: Yes Status: Acute (2) HTN (hypertension) Current visit: Yes Status: Chronic (3) Pseudogout of right knee Current visit: Yes Status: Resolved Assessment and Plan: Impression Community-acquired pneumonia, left lower lobe, present prior to admission. Failed outpatient treatment Acute respiratory failure with hypoxia, resolved. Right knee pain with joint effusion, acute. Hypertension, chronic. Osteoarthritis, chronic. Atrial Fibrillation with variable rate, chronic. Plan-02/28/17 (Mirakian). Patient exam reveals diminished lung sounds to left base without wheezing or rhonchi. Recent left lower lobe pneumonia treated with IV Rocephin and doxycycline - course complete. Repeat CXR obtained today and reviewed by myself and Dr. Wu. Infiltrate appears improved as compared to prior study on 02/15/17. Labs today revealed new leukocytosis with WBC 12.4. Patient remains afebrile. Patient was seen and evaluated by Dr. Wu. As patient is able to participate in therapy and is able to maintain oxygen stats, we will hold off on antibiotic treatment at this time. Continue to monitor respiratory function closely as well as for any fevers. Will recheck labs in AM to monitor blood counts, electrolytes and renal function. Continue to encourage incentive spirometry for pulmonary toileting. Continue pain control per Dr. Dael. PRN tramadol for breakthrough pain. Continue low dose [place]. Repeat labs in AM- may be able to restart Losartan. History of chronic lung disease - Continue to hold Breo and continue use with Symbicort to prevent exacerbation. Hold off on restarting Spiriva due to recent variable HR. PRN Xopenex for any acute wheezing. Continue monitoring on telemetry. DVT Prophylaxis: Eliquis Resuscitation Status: Full Code - Time spent with patient Time with patient PN: 35 minutes Hospital Course Summary Disclaimer: The visit summary below is not to be considered part of the above Progress Note. Hospital Course: 02/27/17 15:47 02/27/17 Patient continues to report pain. Add low dose Tylenol arthritis Q8 hrs for pain control. PRN tramadol for breakthrough pain. Continue low dose [place]. PT/OT eval and tx. CV following- Cardizem/Sotalol/Eliquis. HR is stable. BP is fairly well controlled. Repeat labs in AM- may be able to restart Losartan. Hx. Chronic Lung disease- Holding Breo- will start Symbicort to prevent exacerbation. Hold off on restarting Spiriva due to recent variable HR. PRN Xopenex for any acute wheezing. Repeat labs in AM. Plan-02/28/17 (Mirakian). Patient exam reveals diminished lung sounds to left base without wheezing or rhonchi. Recent left lower lobe pneumonia treated with IV Rocephin and doxycycline - course complete. Repeat CXR obtained today and reviewed by myself and Dr. Wu. Infiltrate appears improved as compared to prior study on 02/15/17. Labs today revealed new leukocytosis with WBC 12.4. Patient remains afebrile. Patient was seen and evaluated by Dr. Wu. As patient is able to participate in therapy and is able to maintain oxygen stats, we will hold off on antibiotic treatment at this time. Continue to monitor respiratory function closely as well as for any fevers. Will recheck labs in AM to monitor blood counts, electrolytes and renal function. Continue to encourage incentive spirometry for pulmonary toileting. Continue pain control per Dr. Dale. PRN tramadol for breakthrough pain. Continue low dose [place]. Repeat labs in AM- may be able to restart Losartan. History of chronic lung disease - Continue to hold Breo and continue use with Symbicort to prevent exacerbation. Hold off on restarting Spiriva due to recent variable HR. PRN Xopenex for any acute wheezing. Continue monitoring on telemetry. <Cliff Wu - Last Filed: 02/28/17 17:09> - Date 02/28/17 Objective Vital signs: Temperature 98.7 F 02/28/17 16:00 Pulse Rate 70 02/28/17 16:00 Respiratory Rate 20 02/28/17 16:00 Blood Pressure 134/65 02/28/17 16:00 Pulse Oximetry 89 L 02/28/17 16:00 Height/Weight/BMI: Height 5 ft 9 in Weight 93 kg Results - Labs CBC & Chem 7: 02/28/17 04:39 02/28/17 04:39 Assessment and Plan (1) CAP (community acquired pneumonia) Current visit: Yes Status: Acute (2) HTN (hypertension) Current visit: Yes Status: Chronic (3) Pseudogout of right knee Current visit: Yes Status: Resolved Assessment and Plan: Seen and examined patient on same day as the above note. Agree with history physical assessment and plan. Physical findings correlate to the above note. I find faint posterior crackles on the left but without any sooners rhonchi wheezing increased work of breathing. Patient appears quite comfortable and non- toxic and has engaged in his physical therapy without difficulty he denies any feelings of illness malaise or a productive cough. Will refrain from antibiotics at this time Documented on Dragon speech to text. Efforts to crack speech recognition errors performed, but variation may exist Hospital Course Summary Disclaimer: The visit summary below is not to be considered part of the above Progress Note.
--- NOTE | 2017-02-28 13:21 | XRay Report ---
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 Heart size is normal. The lungs are clear. There is no focal opacity to suggest atelectasis or pneumonia. No mediastinal or hilar adenopathy. No pleural effusion. There is no significant tortuosity of the descending thoracic aorta. IMPRESSION: No acute process. .
--- NOTE | 2017-02-28 13:53 | Cardiology Progress Note ---
<Ritu Smith - Last Filed: 03/01/17 09:18> Subjective Principal diagnosis: Atrial Fibrillation Interval history: Prabhu is seen in follow up for AFib. He remains in SR on telemetry. He denies chest pain, pressure or palpitations, dyspnea or other complaints. Exam Vital signs: Temperature 97.9 F 02/28/17 08:00 Pulse Rate 70 02/28/17 08:00 Respiratory Rate 18 02/28/17 09:42 Blood Pressure 134/69 02/28/17 08:00 Pulse Oximetry 90 02/28/17 09:42 - Constitutional no acute distress, well nourished, cooperative - Routine HEENT Exam Head: Present: normocephalic ENT: Present: mucous membranes moist - Routine Neck Exam Absent: JVD, carotid bruit - Routine Chest/Breast/Axilla Exam Chest wall: Absent: tenderness - Routine Respiratory Exam Present: CTA bilaterally. Absent: rales, wheezes - Routine Cardiovascular Exam Present: RRR, no murmur. Absent: JVD - Routine Abdominal Exam Present: soft, normoactive bowel sounds - Routine Extremities Exam Present: no edema - Routine Skin Exam Present: intact, dry, warm - Routine Neurological Exam Present: alert, oriented X3 - Routine Psychiatric Exam Present: normal affect, normal thought process - Additional findings Additional findings: Abnormal Lab Results 02/28/17 02/28/17 04:39 04:39 WBC 12.4 H RBC 3.92 L Hgb 11.6 L Hct 35.6 L MCV 90.8 MCH 29.6 MCHC 32.6 RDW Std Deviation 42.8 Plt Count 229 MPV 9.8 Immature Gran % (Auto) 0.6 H Neut % (Auto) 73.1 H Lymph % (Auto) 13.0 L [place] % (Auto) 8.7 Eos % (Auto) 4.4 H Baso % (Auto) 0.2 Neut # (Auto) 9.1 H Lymph # (Auto) 1.6 [place] # (Auto) 1.1 H Eos # (Auto) 0.6 H Baso # (Auto) 0.0 Abs Immat Gran (auto) 0.07 H Turbidity < 20 Sodium 135 Potassium 4.2 Chloride 98 Carbon Dioxide 31 H Anion Gap 6 BUN 14.0 Creatinine 0.7 L GFR Calculation 107 BUN/Creatinine Ratio 20 Glucose 108 Calculated Osmolality 262 Calcium 8.9 Icterus Index < 2 Specimen Hemolysis < 15 Acetaminophen (Tylenol Arthritis) 650 mg PO Q8HR [facility] Last Admin: 02/28/17 09:06 Dose: 650 mg Hydrocodone Bitart/Acetaminophen ([place] 5/325) 1 tab PO Q4H PRN PRN Reason: Pain Last Admin: 02/27/17 21:06 Dose: 1 tab Apixaban (Eliquis) 5 mg PO BID [facility] Last Admin: 02/28/17 09:07 Dose: 5 mg Budesonide/Formoterol Fumarate (Symbicort Inhaler) 2 puff ORAL INH RTBID [facility] Last Admin: 02/28/17 11:56 Dose: 2 puff Cholecalciferol (Vit. D-3) 1,000 unit PO DAILY [facility] Last Admin: 02/28/17 09:07 Dose: 1,000 unit Diltiazem HCl (Cardizem Cd) 180 mg PO DAILY [facility] Last Admin: 02/28/17 09:07 Dose: 180 mg Fluticasone Propionate (Flonase) 1 spray EA NOSTRIL DAILY [facility] Last Admin: 02/28/17 09:08 Dose: 1 spray Fluticasone/Vilanterol (Breo Ellipta Inhaler) 1 puff ORAL INH Q24H [facility] Last Admin: 02/22/17 20:41 Dose: Not Given Levalbuterol HCl (Xopenex 1.25mg/3ml) 1.25 mg AEROSOL RTTID [facility] Last Admin: 02/28/17 09:56 Dose: 1.25 mg Losartan Potassium (Cozaar) 50 mg PO .QD [facility] Non-Formulary Medication (Tiotropium [place] [Spiriva Respimat]) 2 puff PO PRN [facility] Ondansetron HCl (Zofran) 4 mg IVP Q6H PRN PRN Reason: Nausea &/or vomiting Polyethylene Glycol (Miralax) 17 gm PO DAILY [facility] Last Admin: 02/28/17 09:07 Dose: Not Given Potassium Chloride (K-Dur) 20 meq PO DAILY [facility] Last Admin: 02/22/17 20:42 Dose: Not Given Senna/Docusate Sodium (Senna Plus Tablet) 2 tab PO BID [facility] Last Admin: 02/28/17 09:07 Dose: 2 tab Sodium Chloride (Iv Flush) 10 ml IV PRN PRN PRN Reason: Flushing Last Admin: 02/24/17 18:04 Dose: 10 ml Sotalol HCl (Betapace) 40 mg PO ACBID [facility] Last Admin: 02/28/17 06:08 Dose: 40 mg Tramadol HCl (Ultram) 50 mg PO QID PRN PRN Reason: Pain Last Admin: 02/28/17 06:13 Dose: 50 mg Assessment and Plan - Assessment and Plan (1) CAP (community acquired pneumonia) Current visit: Yes Status: Acute (2) Atrial fibrillation Current visit: No Status: Acute Continue Amiodarone (3) HTN (hypertension) Current visit: Yes Status: Chronic Hospital Course Summary Disclaimer: The visit summary below is not to be considered part of the above Progress Note. Hospital Course: 02/27/17 15:47 02/27/17 Patient continues to report pain. Add low dose Tylenol arthritis Q8 hrs for pain control. PRN tramadol for breakthrough pain. Continue low dose [place]. PT/OT eval and tx. CV following- Cardizem/Sotalol/Eliquis. HR is stable. BP is fairly well controlled. Repeat labs in AM- may be able to restart Losartan. Hx. Chronic Lung disease- Holding Breo- will start Symbicort to prevent exacerbation. Hold off on restarting Spiriva due to recent variable HR. PRN Xopenex for any acute wheezing. Repeat labs in AM. Plan-02/28/17 (Mirakian). Patient exam reveals diminished lung sounds to left base without wheezing or rhonchi. Recent left lower lobe pneumonia treated with IV Rocephin and doxycycline - course complete. Repeat CXR obtained today and reviewed by myself and Dr. Wu. Infiltrate appears improved as compared to prior study on 02/15/17. Labs today revealed new leukocytosis with WBC 12.4. Patient remains afebrile. Patient was seen and evaluated by Dr. Wu. As patient is able to participate in therapy and is able to maintain oxygen stats, we will hold off on antibiotic treatment at this time. Continue to monitor respiratory function closely as well as for any fevers. Will recheck labs in AM to monitor blood counts, electrolytes and renal function. Continue to encourage incentive spirometry for pulmonary toileting. Continue pain control per Dr. Dale. PRN tramadol for breakthrough pain. Continue low dose [place]. Repeat labs in AM- may be able to restart Losartan. History of chronic lung disease - Continue to hold Breo and continue use with Symbicort to prevent exacerbation. Hold off on restarting Spiriva due to recent variable HR. PRN Xopenex for any acute wheezing. Continue monitoring on telemetry. <Duarte Fowler - Last Filed: 03/02/17 07:29> Exam Vital signs: Temperature 98.4 F 03/01/17 19:57 Pulse Rate 72 03/02/17 05:55 Respiratory Rate 16 03/01/17 21:15 Blood Pressure 139/71 03/01/17 19:57 Pulse Oximetry 92 03/01/17 21:04 Assessment and Plan - Assessment and Plan (1) CAP (community acquired pneumonia) Current visit: Yes Status: Resolved (2) Atrial fibrillation Current visit: No Status: Acute (3) HTN (hypertension) Current visit: Yes Status: Chronic - Attestation Attestation Narrative: 03/02/17 07:29 Recommendation After examining the patient I agree with the above assessment. I am involved in the formulation of the patient's plan of care. Hospital Course Summary Disclaimer: The visit summary below is not to be considered part of the above Progress Note.
[2017-02-28] MEDS: HYDROCODONE/APAP 5mg/325mg TABLET PO PRN (14:18)
[2017-03-01] MEDS: SOTALOL 80 MG TABLET PO SCH ×2 (06:49→17:47)
[2017-03-01] MEDS: TRAMADOL 50 MG TABLET PO PRN ×2 (06:54→20:19)
[2017-03-01] MEDS: SENNA + DOCUSATE TABLET PO SCH ×2 (08:59→20:14)
[2017-03-01] MEDS: APIXABAN 5 MG TABLET PO SCH ×2 (08:59→20:14)
[2017-03-01] MEDS: FLUTICASONE NASAL SPRAY 50mcg EA NOSTRIL SCH (09:00)
[2017-03-01] MEDS: POLYETHYL GLYCOL 3350 17gm PACKET PO SCH (09:01)
--- NOTE | 2017-03-01 09:23 | Cardiology Progress Note ---
<Ritu Smtih - Last Filed: 03/01/17 09:20> Subjective Principal diagnosis: Atrial Fibrillation Interval history: Prabhu is seen in the dining room this morning in follow up for AFib. He remains in SR on telemetry. He denies chest pain, pressure or palpitations, dyspnea or other complaints. Exam Vital signs: Temperature 98.3 F 02/28/17 21:51 Pulse Rate 68 03/01/17 06:49 Respiratory Rate 20 03/01/17 07:45 Blood Pressure 147/73 H 02/28/17 21:51 Pulse Oximetry 97 03/01/17 07:45 - Constitutional no acute distress, cooperative - Routine HEENT Exam Head: Present: normocephalic ENT: Present: mucous membranes moist - Routine Neck Exam Absent: JVD, carotid bruit - Routine Chest/Breast/Axilla Exam Chest wall: Absent: tenderness - Routine Respiratory Exam Present: CTA bilaterally. Absent: rales, wheezes - Routine Cardiovascular Exam Present: RRR, no murmur. Absent: JVD - Routine Abdominal Exam Present: soft, normoactive bowel sounds - Routine Extremities Exam Present: no edema - Routine Skin Exam Present: intact, dry, warm - Routine Neurological Exam Present: alert, oriented X3 - Routine Psychiatric Exam Present: normal affect, normal thought process - Additional findings Additional findings: Acetaminophen (Tylenol Arthritis) 650 mg PO Q8HR [facility] Last Admin: 03/01/17 08:59 Dose: 650 mg Hydrocodone Bitart/Acetaminophen ([place] 5/325) 1 tab PO Q4H PRN PRN Reason: Pain Last Admin: 02/28/17 14:18 Dose: 1 tab Apixaban (Eliquis) 5 mg PO BID [facility] Last Admin: 03/01/17 08:59 Dose: 5 mg Budesonide/Formoterol Fumarate (Symbicort Inhaler) 2 puff ORAL INH RTBID [facility] Last Admin: 02/28/17 21:19 Dose: 2 puff Cholecalciferol (Vit. D-3) 1,000 unit PO DAILY [facility] Last Admin: 03/01/17 09:00 Dose: 1,000 unit Diltiazem HCl (Cardizem Cd) 180 mg PO DAILY [facility] Last Admin: 03/01/17 09:00 Dose: 180 mg Fluticasone Propionate (Flonase) 1 spray EA NOSTRIL DAILY [facility] Last Admin: 03/01/17 09:00 Dose: 1 spray Fluticasone/Vilanterol (Breo Ellipta Inhaler) 1 puff ORAL INH Q24H [facility] Last Admin: 02/22/17 20:41 Dose: Not Given Levalbuterol HCl (Xopenex 1.25mg/3ml) 1.25 mg AEROSOL RTTID [facility] Last Admin: 03/01/17 07:51 Dose: 1.25 mg Losartan Potassium (Cozaar) 50 mg PO .QD [facility] Non-Formulary Medication (Tiotropium [place] [Spiriva Respimat]) 2 puff PO PRN [facility] Ondansetron HCl (Zofran) 4 mg IVP Q6H PRN PRN Reason: Nausea &/or vomiting Polyethylene Glycol (Miralax) 17 gm PO DAILY [facility] Last Admin: 03/01/17 09:01 Dose: Not Given Potassium Chloride (K-Dur) 20 meq PO DAILY [facility] Last Admin: 02/22/17 20:42 Dose: Not Given Senna/Docusate Sodium (Senna Plus Tablet) 2 tab PO BID [facility] Last Admin: 03/01/17 08:59 Dose: 2 tab Sodium Chloride (Iv Flush) 10 ml IV PRN PRN PRN Reason: Flushing Last Admin: 02/24/17 18:04 Dose: 10 ml Sotalol HCl (Betapace) 40 mg PO ACBID [facility] Last Admin: 03/01/17 06:49 Dose: 40 mg Tramadol HCl (Ultram) 50 mg PO QID PRN PRN Reason: Pain Last Admin: 03/01/17 06:54 Dose: 50 mg Assessment and Plan - Assessment and Plan (1) CAP (community acquired pneumonia) Status: Acute (2) Atrial fibrillation Status: Acute continue to monitor cardiac telemetry (3) HTN (hypertension) Status: Chronic Hospital Course Summary Disclaimer: The visit summary below is not to be considered part of the above Progress Note. Hospital Course: 02/27/17 15:47 02/27/17 Patient continues to report pain. Add low dose Tylenol arthritis Q8 hrs for pain control. PRN tramadol for breakthrough pain. Continue low dose [place]. PT/OT eval and tx. CV following- Cardizem/Sotalol/Eliquis. HR is stable. BP is fairly well controlled. Repeat labs in AM- may be able to restart Losartan. Hx. Chronic Lung disease- Holding Breo- will start Symbicort to prevent exacerbation. Hold off on restarting Spiriva due to recent variable HR. PRN Xopenex for any acute wheezing. Repeat labs in AM. Plan-02/28/17 (Mirakian). Patient exam reveals diminished lung sounds to left base without wheezing or rhonchi. Recent left lower lobe pneumonia treated with IV Rocephin and doxycycline - course complete. Repeat CXR obtained today and reviewed by myself and Dr. Wu. Infiltrate appears improved as compared to prior study on 02/15/17. Labs today revealed new leukocytosis with WBC 12.4. Patient remains afebrile. Patient was seen and evaluated by Dr. Wu. As patient is able to participate in therapy and is able to maintain oxygen stats, we will hold off on antibiotic treatment at this time. Continue to monitor respiratory function closely as well as for any fevers. Will recheck labs in AM to monitor blood counts, electrolytes and renal function. Continue to encourage incentive spirometry for pulmonary toileting. Continue pain control per Dr. Dale. PRN tramadol for breakthrough pain. Continue low dose [place]. Repeat labs in AM- may be able to restart Losartan. History of chronic lung disease - Continue to hold Breo and continue use with Symbicort to prevent exacerbation. Hold off on restarting Spiriva due to recent variable HR. PRN Xopenex for any acute wheezing. Continue monitoring on telemetry. <Duarte Fowler - Last Filed: 03/03/17 11:33> Exam Vital signs: Temperature 98 F 03/02/17 08:00 Pulse Rate 80 03/02/17 08:00 Respiratory Rate 14 03/02/17 09:35 Blood Pressure 140/74 H 03/02/17 08:00 Pulse Oximetry 93 03/02/17 08:00 Assessment and Plan - Assessment and Plan (1) CAP (community acquired pneumonia) Status: Resolved (2) Atrial fibrillation Status: Acute (3) HTN (hypertension) Status: Chronic - Attestation Attestation Narrative: 03/03/17 11:33 Recommendation After examining the patient I agree with the above assessment. I am involved in the formulation of the patient's plan of care. Hospital Course Summary Disclaimer: The visit summary below is not to be considered part of the above Progress Note.
--- NOTE | 2017-03-01 10:26 | IRU Progress Note ---
- Subjective/Serverity of Illness Prabhu was evaluated in his room on the inpatient rehabilitation unit. Has a very mild cough. Today his breath sounds are indeed much better. Still complains of pain in the right knee but the brace has been of benefit. Radiograph of the chest shows no acute process. He denies any chest pain. He sounds as though he is remaining in a regular rhythm at the present time. He is anticipating going home tomorrow and feels good about this he states. 1. LLL pneumonia, community-acquired. Oxygen saturations remain a bit borderline. However the chest radiographically thankfully is normal at this time with regard to no evidence of effusion or acute infiltrate. 2. New onset acute respiratory failure with hypoxemia. As noted above, the saturations are slightly down. We will monitor carefully. 3. New onset atrial fibrillation with new medications started (diltiazem and Eliquis). He remains in sinus mechanism at present. Cardiology is following. Exam Vital Signs: Temperature 98.5 F 03/01/17 08:00 Pulse Rate 68 03/01/17 08:00 Respiratory Rate 16 03/01/17 10:09 Blood Pressure 127/63 03/01/17 08:00 Pulse Oximetry 91 03/01/17 08:00 Height/Weight/BMI: Height 1.75 m Weight 93 kg Comments: The patient is awake, alert and oriented and in no acute distress. Pupils are equal. The neck is supple. Chest: Breath sounds are much improved in the left base. Has rare wheeze. Somewhat diminished sounds overall but is certainly better than yesterday. Cor: RR with no gallop, click nor murmur Abd: soft with normo-active bowel sounds. There are no masses, no tenderness and no guarding. Extremities: No edema is noted. Exam of the right knee shows perhaps minimal warmth. However no active inflammation is otherwise suspected at this time. Results IRU - Labs Labs: I personally reviewed the chest radiograph. To my eye, there continues to be evidence of mild infiltrative process although no effusion is noted. Surgery the changes could be chronic. IRU A/P (1) Atrial fibrillation Qualifiers: Atrial fibrillation type: paroxysmal Qualified Code(s): I48.0 - Paroxysmal atrial fibrillation Current visit: No Status: Acute Currently remains in sinus mechanism on the current medications. Cardiology is following. Denies significant dyspnea. (2) CAP (community acquired pneumonia) Qualifiers: Laterality: left Lung location: lower lobe of lung Qualified Code(s): J18.1 - Lobar pneumonia, unspecified organism Current visit: Yes Status: Resolved Chest radiograph interpretation officially was no acute process. To my eye there does appear to be some increased markings in the left base which could simply be residual from the previous pneumonia. Certainly no effusion is noted and overall things are trending toward improvement. (3) HTN (hypertension) Qualifiers: Hypertension type: essential hypertension Qualified Code(s): I10 - Essential (primary) hypertension Current visit: Yes Status: Chronic (4) Osteoarthritis Qualifiers: Osteoarthritis location: knee Osteoarthritis type: primary Laterality: right Qualified Code(s): M17.11 - Unilateral primary osteoarthritis, right knee Current visit: No Status: Acute Discomfort in the right knee persists and is a barrier to progress. He feels as though there is some benefit with use of the brace. (5) Pseudogout of right knee Current visit: Yes Status: Resolved DVT Prophylaxis: Eliquis Resuscitation Status: Full Code - Course Hospital Course: Luan Dale MD: 02/23/17 11:15 He is doing well respiratory mcnamara. Has occasional cough only. Oxygenation is improved. Right knee painful with ambulation. Tolerating therapy well. 02/25/17 09:46 He is improving with both occupational therapy and physical therapy. And using his mild cough without sputum. Reduced oxygen requirements. Remains in atrial fibrillation on Eliquis and diltiazem. 02/28/17 10:35 Does not require oxygen supplementation at present Seems to be back in sinus mechanism. He is improving with therapies. Right knee continues to be an impediment to his progress. Have discussed respiratory situation with the hospitalist team. 02/28/17 10:38 03/01/17 10:27 Repeat chest x-ray looks improved. Oxygen saturations borderline low. Symptomatically he is doing well with regard to his respiratory function. The right knee pain continues to be an impediment. Anticipate dismissal tomorrow to his home. - Interventions to Obtain Goals PT Treatment Plan: Balance/Proprioception, Functional Activities, Gait Training , Patient/Family Education, Therapeutic Exercise OT Treatment Plan: ADL (Basic Care), Balance Training, Pt./Family Education, Ther. Exercise for ADL Goals Progress/Modifications: Time spent with patient and on floor reviewing data and documentin min Barriers to dismissal: right knee pain, hypoxia Medical decision-making: I reviewed his chest x-ray. There does appear to be some increased interstitial markings but these could be residual from the pneumonia versus chronic. No effusion is seen. His saturations are bit borderline low. Continues to have pain in the right knee but there is no current evidence of inflammation. It is my feeling that he did have pseudogout superimposed upon his chronic osteoarthritis. I think he will be stable for dismissal tomorrow.
[2017-03-02] MEDS: SOTALOL 80 MG TABLET PO SCH (05:55)
[2017-03-02 08:06] VITALS: BP 140/74; TEMP 98; O2SAT 93
[2017-03-02] MEDS: APIXABAN 5 MG TABLET PO SCH (09:26)
[2017-03-02] MEDS: FLUTICASONE NASAL SPRAY 50mcg EA NOSTRIL SCH (09:26)
[2017-03-02] MEDS: POLYETHYL GLYCOL 3350 17gm PACKET PO SCH (09:27)
[2017-03-02] MEDS: SALINE FLUSH 10ml SYRINGE IV PRN (09:27)
[2017-03-02] MEDS: SENNA + DOCUSATE TABLET PO SCH (09:27)
[2017-03-02 09:42] VITALS: RESP 14
--- NOTE | 2017-03-02 10:19 | IRU Progress Note ---
- Subjective/Serverity of Illness Nick was evaluated in his room. He states that he is ready to go home. He feels as though he is steady on his feet. Continues to have discomfort in the right knee. However no active evidence of inflammation at present. His pulmonary status appears to be stable. He does have history of atrial fibrillation. Cardiology is following. At present he continues in sinus mechanism based on clinical findings. Exam Vital Signs: Temperature 98 F 03/02/17 08:00 Pulse Rate 61 03/02/17 08:00 Respiratory Rate 14 03/02/17 09:35 Blood Pressure 140/74 H 03/02/17 08:00 Pulse Oximetry 93 03/02/17 08:00 Height/Weight/BMI: Height 1.75 m Weight 93 kg Comments: The patient is awake, alert and oriented and in no acute distress. Pupils are equal. The neck is supple. Chest: Clear to auscultation bilaterally. Cor: RR with no gallop, click nor murmur Abd: soft with normo-active bowel sounds. There are no masses, no tenderness and no guarding. Extremities: No edema is noted. Exam of the right knee shows no evidence of active inflammation. It is somewhat puffy but this is related to his underlying osteoarthritis in my opinion. IRU A/P (1) Atrial fibrillation Qualifiers: Atrial fibrillation type: paroxysmal Qualified Code(s): I48.0 - Paroxysmal atrial fibrillation Current visit: No Status: Acute He has paroxysmal atrial fibrillation but currently is in sinus mechanism. (2) CAP (community acquired pneumonia) Qualifiers: Laterality: left Lung location: lower lobe of lung Qualified Code(s): J18.1 - Lobar pneumonia, unspecified organism Current visit: Yes Status: Resolved (3) HTN (hypertension) Qualifiers: Hypertension type: essential hypertension Qualified Code(s): I10 - Essential (primary) hypertension Current visit: Yes Status: Chronic Blood pressures appear to be adequately controlled. 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 He has found benefit with using the brace. He is safe to return home at this time. (5) Pseudogout of right knee Current visit: Yes Status: Resolved DVT Prophylaxis: Eliquis Resuscitation Status: Full Code - Course Hospital Course: Luan Dale MD: 02/23/17 11:15 He is doing well respiratory mcnamara. Has occasional cough only. Oxygenation is improved. Right knee painful with ambulation. Tolerating therapy well. 02/25/17 09:46 He is improving with both occupational therapy and physical therapy. And using his mild cough without sputum. Reduced oxygen requirements. Remains in atrial fibrillation on Eliquis and diltiazem. 02/28/17 10:35 Does not require oxygen supplementation at present Seems to be back in sinus mechanism. He is improving with therapies. Right knee continues to be an impediment to his progress. Have discussed respiratory situation with the hospitalist team. 02/28/17 10:38 03/01/17 10:27 Repeat chest x-ray looks improved. Oxygen saturations borderline low. Symptomatically he is doing well with regard to his respiratory function. The right knee pain continues to be an impediment. Anticipate dismissal tomorrow to his home. 03/02/17 10:19 His respiratory status appears to be stable. He believes he is stable to return home. The right knee pain continues to be an impediment. - Interventions to Obtain Goals PT Treatment Plan: Balance/Proprioception, Functional Activities, Gait Training , Patient/Family Education, Therapeutic Exercise OT Treatment Plan: ADL (Basic Care), Balance Training, Pt./Family Education, Ther. Exercise for ADL Goals Progress/Modifications: Anticipate dismissal today to his home.
--- NOTE | 2017-03-02 10:29 | Cardiology Progress Note ---
<Ritu Smith - Last Filed: 03/02/17 10:27> Subjective Principal diagnosis: Atrial Fibrillation Interval history: Prabhu is seen in the dining room this morning in follow up for AFib. He is in SR at this time. He states he is discharging today. He denies chest pain, pressure or palpitations, dyspnea or other complaints. Exam Vital signs: Temperature 98 F 03/02/17 08:00 Pulse Rate 61 03/02/17 08:00 Respiratory Rate 14 03/02/17 09:35 Blood Pressure 140/74 H 03/02/17 08:00 Pulse Oximetry 93 03/02/17 08:00 - Constitutional no acute distress, well nourished, cooperative - Routine HEENT Exam Head: Present: normocephalic ENT: Present: mucous membranes moist - Routine Neck Exam Absent: JVD, carotid bruit - Routine Chest/Breast/Axilla Exam Chest wall: Absent: tenderness - Routine Respiratory Exam Present: CTA bilaterally. Absent: rales, wheezes - Routine Cardiovascular Exam Present: RRR, no murmur. Absent: JVD - Routine Abdominal Exam Present: soft, normoactive bowel sounds - Routine Extremities Exam Present: no edema, tenderness (right knee) - Routine Skin Exam Present: intact, dry, warm - Routine Neurological Exam Present: alert, oriented X3 - Routine Psychiatric Exam Present: normal affect, normal thought process - Additional findings Additional findings: Acetaminophen (Tylenol Arthritis) 650 mg PO Q8HR [facility] Last Admin: 03/02/17 09:26 Dose: 650 mg Hydrocodone Bitart/Acetaminophen ([place] 5/325) 1 tab PO Q4H PRN PRN Reason: Pain Last Admin: 02/28/17 14:18 Dose: 1 tab Apixaban (Eliquis) 5 mg PO BID [facility] Last Admin: 03/02/17 09:26 Dose: 5 mg Budesonide/Formoterol Fumarate (Symbicort Inhaler) 2 puff ORAL INH RTBID [facility] Last Admin: 03/02/17 09:39 Dose: 2 puff Cholecalciferol (Vit. D-3) 1,000 unit PO DAILY [facility] Last Admin: 03/02/17 09:26 Dose: 1,000 unit Diltiazem HCl (Cardizem Cd) 180 mg PO DAILY [facility] Last Admin: 03/02/17 09:26 Dose: 180 mg Fluticasone Propionate (Flonase) 1 spray EA NOSTRIL DAILY [facility] Last Admin: 03/02/17 09:26 Dose: 1 spray Fluticasone/Vilanterol (Breo Ellipta Inhaler) 1 puff ORAL INH Q24H [facility] Last Admin: 02/22/17 20:41 Dose: Not Given Levalbuterol HCl (Xopenex 1.25mg/3ml) 1.25 mg AEROSOL RTTID [facility] Last Admin: 03/02/17 07:31 Dose: 1.25 mg Losartan Potassium (Cozaar) 50 mg PO .QD [facility] Non-Formulary Medication (Tiotropium [place] [Spiriva Respimat]) 2 puff PO PRN [facility] Ondansetron HCl (Zofran) 4 mg IVP Q6H PRN PRN Reason: Nausea &/or vomiting Polyethylene Glycol (Miralax) 17 gm PO DAILY [facility] Last Admin: 03/02/17 09:27 Dose: Not Given Potassium Chloride (K-Dur) 20 meq PO DAILY [facility] Last Admin: 02/22/17 20:42 Dose: Not Given Senna/Docusate Sodium (Senna Plus Tablet) 2 tab PO BID [facility] Last Admin: 03/02/17 09:27 Dose: 2 tab Sodium Chloride (Iv Flush) 10 ml IV PRN PRN PRN Reason: Flushing Last Admin: 03/02/17 09:27 Dose: 10 ml Sotalol HCl (Betapace) 40 mg PO ACBID [facility] Last Admin: 03/02/17 05:55 Dose: 40 mg Tramadol HCl (Ultram) 50 mg PO QID PRN PRN Reason: Pain Last Admin: 03/01/17 20:19 Dose: 50 mg Assessment and Plan - Assessment and Plan (1) CAP (community acquired pneumonia) Status: Resolved (2) Atrial fibrillation Status: Acute (3) HTN (hypertension) Status: Chronic Hospital Course Summary Disclaimer: The visit summary below is not to be considered part of the above Progress Note. Hospital Course: 02/27/17 15:47 02/27/17 Patient continues to report pain. Add low dose Tylenol arthritis Q8 hrs for pain control. PRN tramadol for breakthrough pain. Continue low dose [place]. PT/OT eval and tx. CV following- Cardizem/Sotalol/Eliquis. HR is stable. BP is fairly well controlled. Repeat labs in AM- may be able to restart Losartan. Hx. Chronic Lung disease- Holding Breo- will start Symbicort to prevent exacerbation. Hold off on restarting Spiriva due to recent variable HR. PRN Xopenex for any acute wheezing. Repeat labs in AM. Plan-02/28/17 (Mirakian). Patient exam reveals diminished lung sounds to left base without wheezing or rhonchi. Recent left lower lobe pneumonia treated with IV Rocephin and doxycycline - course complete. Repeat CXR obtained today and reviewed by myself and Dr. Wu. Infiltrate appears improved as compared to prior study on 02/15/17. Labs today revealed new leukocytosis with WBC 12.4. Patient remains afebrile. Patient was seen and evaluated by Dr. Wu. As patient is able to participate in therapy and is able to maintain oxygen stats, we will hold off on antibiotic treatment at this time. Continue to monitor respiratory function closely as well as for any fevers. Will recheck labs in AM to monitor blood counts, electrolytes and renal function. Continue to encourage incentive spirometry for pulmonary toileting. Continue pain control per Dr. Dale. PRN tramadol for breakthrough pain. Continue low dose [place]. Repeat labs in AM- may be able to restart Losartan. History of chronic lung disease - Continue to hold Breo and continue use with Symbicort to prevent exacerbation. Hold off on restarting Spiriva due to recent variable HR. PRN Xopenex for any acute wheezing. Continue monitoring on telemetry. <Duarte Fowler - Last Filed: 03/03/17 11:36> Exam Vital signs: Temperature 98 F 03/02/17 08:00 Pulse Rate 80 03/02/17 08:00 Respiratory Rate 14 03/02/17 09:35 Blood Pressure 140/74 H 03/02/17 08:00 Pulse Oximetry 93 03/02/17 08:00 Assessment and Plan - Assessment and Plan (1) CAP (community acquired pneumonia) Status: Resolved (2) Atrial fibrillation Status: Acute (3) HTN (hypertension) Status: Chronic - Attestation Attestation Narrative: 03/03/17 11:36 Recommendation After examining the patient I agree with the above assessment. I am involved in the formulation of the patient's plan of care. Hospital Course Summary Disclaimer: The visit summary below is not to be considered part of the above Progress Note.
[2017-03-02] MEDS: HYDROCODONE/APAP 5mg/325mg TABLET PO PRN (12:44)
[2017-03-02 13:17] VITALS: PULSE 80
--- NOTE | 2017-03-02 14:17 | Discharge Summary ---
Discharge Information Date of admission: 02/21/17 17:32 Anticipated date of discharge: 03/02/17 Attending Physician: Luan Dale MD Primary care physician: Kael Rehman DO Consults: 02/21/17 18:20 Physician Consult [CONS] Routine Consulting Provider: Duarte Fowler Reason For Exam: New onset A-fib Ordering Provider has Notified Organ Builder: Yes Comment: called Ritu Physician Consult [CONS] Routine Consulting Provider: Julius Lynn Reason For Exam: right knee effusion Ordering Provider has Notified Organ Builder: Yes 02/21/17 20:51 Physician Consult [CONS] Routine Consulting Provider: Faizan Antonio Reason For Exam: Medical Management Ordering Provider has Notified Organ Builder: Yes - Discharge Diagnosis (1) Atrial fibrillation Status: Acute (2) CAP (community acquired pneumonia) Status: Resolved (3) HTN (hypertension) Status: Chronic (4) Osteoarthritis Status: Acute (5) Pseudogout of right knee Status: Resolved 1. Community acquired pneumonia 2. Paroxysmal atrial fibrillation 3. Severe osteoarthritis right knee 4. Pseudogout right knee 5. Benign essential hypertension - Laboratory Labs: 02/28/17 04:39 02/28/17 04:39 History of Present Illness HPI: 03/02/17 14:21 Mr. Ramires presented to acute care with severe right knee pain as well as respiratory symptoms. He had been treated as an outpatient with Augmentin beginning on approximately 02/02/[address] Rehman. . He was getting into his car 02/14/2017 when his right knee gave out. Had severe pain in the knee and he was brought to the emergency department for evaluation on . He was noted to have a left lower lobe infiltrate along with a white count of 23,000 and hypoxemia with saturations around 89% on room air. CT scan of the right knee failed to reveal a fracture but did show severe osteoarthritic changes. He was noted to be in atrial fibrillation. He was seen by Dr. Fowler on the acute care side along with the hospitalists. Dr. Lynn performed arthroscopic irrigation and synovectomy revealing calcium pyrophosphate crystals but no evidence of infection. While on acute, he was treated with intravenous antibiotics for his pneumonia. He was admitted to acute inpatient rehabilitation on 02/22/17 for an individualized program of occupational therapy and physical therapy along with medical management of his pneumonia and right knee osteoarthritis. 03/02/17 14:33 Hospital Course This is a general summary of the patient's hospital course. For more details refer to the complete medical record. Mr. Ramires was initially admitted to acute care upon presentation to the emergency department due to severe right knee pain. He was also noted to have a left lower lobe infiltrate and a white count of 23,000. He was treated with intravenous antibiotics. He was noted to be in atrial fibrillation. He was seen by Dr. Fowler. He was felt to be stable for transfer to acute inpatient rehabilitation. While here, he underwent evaluation and treatment in an interdisciplinary manner with an individualized program of physical therapy, occupational therapy, 24 hour rehabilitation nursing and medical supervision. The hospitalists followed him during the time of his stay while on acute rehabilitation. In addition he was seen by cardiology. With regard to his atrial fibrillation, he did convert to normal sinus mechanism. He was monitored with telemetry and this remained normal sinus rhythm. He is now on sotalol 40 mg twice daily plus Eliquis 5 mg twice a day plus diltiazem daily for his rhythm. With regard to his pneumonia, his antibiotics were discontinued. He still had a mild cough and reduced breath sounds in the left base. Repeat chest radiograph failed to reveal acute changes although there may be some chronic changes in the left base. It is noted that his white count at the time of dismissal was 12, 000. He has no symptoms nor signs of infection at this time. We do recommend follow-up with repeat white count and possibly repeat chest x-ray should he have continued symptoms in the future. He was very cooperative with therapy. For occupational therapy he was independent eating initially as well as at dismissal. Grooming was initially standby assistance as well as at dismissal. Bathing ability was contact-guard assistance initially and standby assistance at dismissal. Upper body dressing with standby assistance initially and independent functioning upon dismissal. Lower body dressing was standby assistance initially and at dismissal. Toileting assist was minimal assistance initially and modified independent functioning upon dismissal. Bed/chair/wheelchair transfers were contact guard assistance initially and standby assistance upon dismissal. He was seen by physical therapy and was very cooperative with him as well. He was initially contact-guard assistance and ultimately modified independent to independent functioning for bed/chair/wheelchair transfers. Toileting assist was standby assistance initially and modified independent upon dismissal. Toilet transfer assist with standby assistance initially and modified independent upon dismissal. Car transfers were standby assistance upon admission and upon dismissal. And bleeding ability was maximal assistance initially and modified independent at the time of dismissal. He was initially able to walk 65 feet with a front wheeled walker and upon dismissal was able to ambulate 150 feet. He was initially able to climb 2 stairs with maximal assistance and upon dismissal was able to climb 6 stairs with standby assistance. He will be following up with Dr. Rehman and Dr. Fowler. Hospital course: 02/27/17 15:47 02/27/17 Patient continues to report pain. Add low dose Tylenol arthritis Q8 hrs for pain control. PRN tramadol for breakthrough pain. Continue low dose Kend[place]. PT/OT eval and tx. CV following- Cardizem/Sotalol/Eliquis. HR is stable. BP is fairly well controlled. Repeat labs in AM- may be able to restart Losartan. Hx. Chronic Lung disease- Holding Breo- will start Symbicort to prevent exacerbation. Hold off on restarting Spiriva due to recent variable HR. PRN Xopenex for any acute wheezing. Repeat labs in AM. Plan-02/28/17 ([place]). Patient exam reveals diminished lung sounds to left base without wheezing or rhonchi. Recent left lower lobe pneumonia treated with IV Rocephin and doxycycline - course complete. Repeat CXR obtained today and reviewed by myself and Dr. Wu. Infiltrate appears improved as compared to prior study on 02/15/17. Labs today revealed new leukocytosis with WBC 12.4. Patient remains afebrile. Patient was seen and evaluated by Dr. Wu. As patient is able to participate in therapy and is able to maintain oxygen stats, we will hold off on antibiotic treatment at this time. Continue to monitor respiratory function closely as well as for any fevers. Will recheck labs in AM to monitor blood counts, electrolytes and renal function. Continue to encourage incentive spirometry for pulmonary toileting. Continue pain control per Dr. aDle. PRN tramadol for breakthrough pain. Continue low dose Kendall. Repeat labs in AM- may be able to restart Losartan. History of chronic lung disease - Continue to hold Breo and continue use with Symbicort to prevent exacerbation. Hold off on restarting Spiriva due to recent variable HR. PRN Xopenex for any acute wheezing. Continue monitoring on telemetry. Time spent with patient: 25 - 35 minutes Discharge Plan - Med Rec/Dispo Referrals/Follow Up: Vincent Penn PA [Physician Nurse Transition] - (TANMAY Erickson on 03/07/17 at 3:00 pm for follow-up. [address] [place] [address]) Kael Rehman DO [Family Provider] - (Dr. Pattie Rehman on 03/09/17 at 10:30 am for Hosp. follow-up. . [facility] [address] [place] [address]) Fabián Instructions: Community Acquired Pneumonia (GEN), Fall Prevention (GEN) , [facility] Leah Knee Scope Prescriptions: New Sotalol [Betapace] 40 mg PO ACBID #60 tab Apixaban [Eliquis] 5 mg PO BID #60 tab Hydrocodone/APAP 5/325 [[place] 5/325] 1 tab PO Q4H PRN #30 tab PRN Reason: Pain Acetaminophen SR [Tylenol Arthritis] 650 mg PO Q8HR tablet Continue Potassium Chloride 20 meq PO DAILY Cholecalciferol [Vit. D-3] 1,000 unit PO DAILY Levalbuterol 1.25mg/3ml NEB [XOPENEX 1.25mg/3ml] 1.25 mg AEROSOL RTTID neb PEG 3350 17gm PACKET [Miralax] 17 gm PO DAILY packet Apixaban [Eliquis] 5 mg PO BID #60 tab Senna + Docusate [Senna Plus Tablet] 2 tab PO BID tablet DiltiaZEM CD [Cardizem Cd] 180 mg PO DAILY #30 cap Flonase (Fluticasone) 50 mcg nasal spray 1 spray INTRANASAL DAILY 30 Days #16 Spiriva Respimat (tiotropium bromide) 2.5 mcg/actuation, inhalation 2 puff INH PRN Ciloxan (ciprofloxacin) 0.3 % eye drops 1 package EACH EYE .COMPLEX #10 ml Breo Ellipta (fluticasone 100 mcg-vilanterol 25 mcg/dose) powder for inhalation 1 inh INH Q24H Discontinued Doxycycline [Vibramycin] 100 mg PO BIDWM tablet Hydrocodone/APAP 5/325 [[place] 5/325] 1 tab PO Q4H PRN tablet PRN Reason: Pain Cozaar (losartan) 50 mg tablet 50 mg PO .QD 90 Days tab Lopressor (metoprolol tartrate) 50 mg tablet 50 mg PO BID 90 Days tab - Disposition 01 Discharged Home, Self-Care
== END 2017-03-02 14:20 | disposition home health service (06) | DRG 945 ==
PROVIDERS: ADMIT Internal Medicine; ATTEND Internal Medicine

== ENCOUNTER 2017-03-21 17:00 | Observation (INO) ==
--- NOTE | 2017-03-21 17:36 | Emergency Department Report ---
Lower Extremity Injury HPI - General Stated Complaint: leg/shoulder swelling Time Seen by Provider: 03/21/17 17:06 - History of Present Illness HPI Narrative: 87-year-old male presents with right knee pain. Patient is unable to get out of his recliner for the last 4 days due to left shoulder and right knee pain. He has bilateral knee replacements and had swelling and warmth on the right knee. It was irrigated in the OR and re-swelled, at which time fluid was drawn and sent for culture. Patient has been at home, went to the doctor's office today and had difficulty even getting out of the car. He had to be assisted back in and was sent to the ED for evaluation. He has [place] chilled the last several days. He is able to move the left shoulder, but has pain with any sort of resistance, such as trying to push himself up out of the recliner. Otherwise at rest his shoulder is comfortable. - Related Data Home Medications Medication Instructions Recorded Confirmed Cholecalciferol [Vit. D-3] 1,000 unit PO DAILY 02/16/17 03/21/17 Acetaminophen SR [Tylenol 650 mg PO Q8HR PRN 03/21/17 03/21/17 Arthritis] Budesonide/Formoterol Fumarate 2 puff INH BID 03/21/17 03/21/17 [Symbicort 160-4.5 Mcg Inhaler] Fluticasone Nasal [place] [Flonase] 1 spray EA NOSTRIL DAILY 03/21/17 03/21/17 Levalbuterol 1.25mg/3ml NEB 1.25 mg AEROSOL TID 03/21/17 03/21/17 [XOPENEX 1.25mg/3ml] Potassium Chloride [K-Tab ER] 20 meq PO DAILY 03/21/17 03/21/17 Rivaroxaban [Xarelto] 20 mg PO DAILY 03/21/17 03/21/17 Tiotropium Br/Olodaterol HCl 1 spray IH PRN PRN 03/21/17 03/21/17 [Stiolto Respimat Inhal [place]] Tramadol [Ultram] 50 mg PO QID PRN 03/21/17 03/21/17 dilTIAZem HCl [Cartia Xt] 240 mg PO DAILY 03/21/17 03/21/17 Previous Rx's Medication Instructions Recorded Sotalol [Betapace] 40 mg PO ACBID #60 tab 03/02/17 Allergies Allergy/AdvReac Type Severity Reaction Status Date / Time No Known Allergies Allergy Verified 03/21/17 15:18 Review of Systems All systems: reviewed and negative except as stated PFSH Patient Stated Medical History Transient Ischemic Attacks ( Yes: possibly-in 1998 TIA) Cataracts Yes: removed Cardiac Arrhythmia Yes Hypertension Yes Bronchitis Yes Chronic Obstructive Pulmonary Yes Disease (COPD) Pneumonia Yes Sleep Apnea No Constipation Yes Hx Incontinence No Other Musculoskeletal Yes: TIA no appArent residuals Other Infectious Yes: SKIN INFECTION OF WOUND, YEARS AGO. Other Yes: jaw bilateral pops per patient Clinic Medical History (Last Reviewed 03/14/17 @ 15:52 by TANMAY Mercedes) Cataracts, bilateral (Chronic Medical) Pneumonia (Chronic Medical) Tremor of both hands (Chronic Medical) Depression (Chronic Medical) Anxiety (Chronic Medical) CAP (community acquired pneumonia) (Resolved Medical) Failure of outpatient treatment (Acute Medical) Atrial fibrillation (Acute Medical) HTN (hypertension) (Chronic Medical) Right knee pain (Acute Medical) Osteoarthritis (Acute Medical) Septic arthritis of knee, right (Acute Medical) Pseudogout of right knee (Resolved Medical) Acute hypoxemic respiratory failure (Resolved Medical) HTN (hypertension) (Chronic Medical) Surgical History: Appendectomy. Right leg surgery/infection site. nose surgery. Rt Knee scope 02-18-17. L3-S1 laminectomy & fusion. left cataract extraction Family History: Family History (Last Reviewed 03/14/17 @ 15:52 by TANMAY Mercedes) Father Arthritis Mother Dementia Asthma - Social History Smoking status: Former smoker Substance use type: does not use Physical Exam - General General appearance: alert - Normal Exams: Head:: Normocephalic without trauma Chest/Respirations:: Clear all daly, with good airflow, and symmetry bilaterally Cardiovascular:: Regular rate and rhythm, without murmur or gallop, Pulses 2+ all extremities, capillary refill, <2 seconds all extremities Abdomen:: Bowel sounds positive, soft, non-tender, non-distended, no hepatosplenomegaly, masses or bruits noted Neurological:: Patient is alert, and oriented, cranial nerves, motor/sensory/ cerebellar, exams w/o gross deficits, to observation Psychiatric:: Patient exhibits, appropriate attention, emotion and affect - Expanded Lower Extremity Exam right Knee exam: Present: tenderness, swelling, deformity, effusion. Absent: abrasion , laceration, ecchymosis, crepitus, dislocation, erythema Course Vital Signs Temperature 97.8 F 03/21/17 17:00 Pulse Rate 89 03/21/17 17:00 Respiratory Rate 18 03/21/17 17:00 Blood Pressure 202/105 H 03/21/17 17:00 Pulse Oximetry 94 03/21/17 17:00 Temperature 97.8 F 03/21/17 17:00 Pulse Rate 85 03/21/17 19:32 Respiratory Rate 20 03/21/17 19:32 Blood Pressure 153/73 H 03/21/17 19:32 Pulse Oximetry 93 03/21/17 19:32 Extremity Injury, Lower - MDM Narrative Medical decision making narrative: White count 13 with minimal left shift. X-rays nonspecific as far as changes in shoulder or knee. Uric acid is negative so this is unlikely to be active gout. He does have a history of rheumatoid arthritis which may be bumping his CRP. Plan is to replace the right knee if cultures come back negative. At this point did not grow anything. Orthostatic like to wait and make sure prior to opening the joint. I spoke with Dr. Lynn who is willing to be consult in the morning to evaluate any changes in the knee pain. IRU is also willing to be consult in a.m. for placement to see if we can qualify the patient prior to his knee replacement. I did give him [place] 5 mg tablet instead of tramadol to try and help with pain as he seemed to do better with this prior to the change to tramadol. Hospitalist service agreed to admit the patient observation to manage his pain and weakness overnight pending consults in a.m. - Medical Records Attestation: I reviewed the patient's medical records. - Lab Data Attestation: I reviewed the patient's lab results. Result diagrams: 03/21/17 17:31 03/21/17 17:31 Lab Results 03/21/17 03/21/17 Range/Units 17:31 17:31 WBC 13.6 H (4.5-11.0) T/MM3 RBC 4.16 L (4.50-5.90) M/MM3 Hgb 12.3 L (13.5-17.5) GM/DL Hct 37.2 L (41-53) % MCV 89.4 (80-100) UM3 MCH 29.6 (26-34) UUG MCHC 33.1 (31-37) GM/DL RDW Std Deviation 42.5 (36.9-50.2) FL Plt Count 220 (130-400) T/MM3 MPV 10.3 (9.4-12.4) UM3 Immature Gran % (Auto) 0.3 (0.0-0.5) % Neut % (Auto) 74.7 H (33-66) % Lymph % (Auto) 12.4 L (23-45) % [place] % (Auto) 10.4 H (0-9.0) % Eos % (Auto) 2.1 (0-4) % Baso % (Auto) 0.1 (0-2) % Neut # (Auto) 10.2 H (1.8-7.7) T/MM3 Lymph # (Auto) 1.7 (1-4.8) T/MM3 [place] # (Auto) 1.4 H (0-0.8) T/MM3 Eos # (Auto) 0.3 (0-0.5) T/MM3 Baso # (Auto) 0.0 (0-0.2) T/MM3 Abs Immat Gran (auto) 0.04 H (0.00-0.03) T/MM3 Turbidity < 20 (0-20) Sodium 136 (134-144) MEQ/L Potassium 4.4 (3.6-5) MEQ/L Chloride 97 L (98-107) MEQ/L Carbon Dioxide 31 H (22-30) MEQ/L Anion Gap 8 (5-15) MEQ/L BUN 18.0 (9-20) MG/DL Creatinine 0.8 (0.8-1.5) MG/DL GFR Calculation 92 BUN/Creatinine Ratio 23 (6-26) RATIO Glucose 142 H (75-110) MG/DL Calculated Osmolality 266 (261-280) MOSM/KG Uric Acid 4.4 (3.5-8.5) MG/DL Calcium 9.0 (8.4-10.2) MG/DL Total Bilirubin 0.80 (0.20-1.30) MG/DL Icterus Index < 2 (0-7) AST 103 H (17-59) U/L ALT 89 H (21-72) U/L Alkaline Phosphatase 308 H (38-126) U/L C-Reactive Protein 251.1 H (0-9) MG/L Total Protein 7.4 (6.3-8.2) G/DL Albumin 3.6 (3.5-5.0) G/DL Globulin 3.8 H (2.4-3.6) G/DL Albumin/Globulin Ratio 0.9 L (1.1-2.2) RATIO Specimen Hemolysis < 15 (0-25) - Radiology Data Attestation: I reviewed the patient's radiology results. Disposition Clinical Impression: Knee pain, Weakness Disposition: 02 To [facility] Condition: Stable Prescriptions: No Action Cholecalciferol [Vit. D-3] 1,000 unit PO DAILY Sotalol [Betapace] 40 mg PO ACBID #60 tab Tramadol [Ultram] 50 mg PO QID PRN PRN Reason: Pain Tiotropium Br/Olodaterol HCl [Stiolto Respimat Inhal [place]] 1 spray IH PRN PRN PRN Reason: Prn Orders Levalbuterol 1.25mg/3ml NEB [XOPENEX 1.25mg/3ml] 1.25 mg AEROSOL TID dilTIAZem HCl [Cartia Xt] 240 mg PO DAILY Rivaroxaban [Xarelto] 20 mg PO DAILY Acetaminophen SR [Tylenol Arthritis] 650 mg PO Q8HR PRN PRN Reason: Pain Potassium Chloride [K-Tab ER] 20 meq PO DAILY Budesonide/Formoterol Fumarate [Symbicort 160-4.5 Mcg Inhaler] 2 puff INH BID Fluticasone Nasal [place] [Flonase] 1 spray EA NOSTRIL DAILY Referrals: Kael Rehman DO [Family Provider] - Time of Disposition: 19:49 - Seen By: physician
[2017-03-21] MEDS ORDERED: HYDROCODONE/APAP 5mg/325mg TABLET PO ONE (19:00)
--- NOTE | 2017-03-21 19:03 | XRay Report ---
Indication: Left shoulder pain PROCEDURE: XR shoulder LT 2-3 views: Encounter: Initial Comparison: None Findings: There is no acute fracture, dislocation or malalignment identified. Chronic appearing rotator cuff tear. Mild degenerative change in the acromioclavicular joint with moderate to severe degenerative change in the glenohumeral joint. Impression: No acute osseous abnormality. .
--- NOTE | 2017-03-21 19:05 | XRay Report ---
Indication: Right knee pain PROCEDURE: XR knee RT 3V: Encounter: Initial Comparison: None Findings: There is no acute fracture, dislocation or malalignment identified. Severe tricompartmental osteoarthritis with large osteophytes. Arterial vascular calcifications. Multiple loose bodies in the joint space. Genu varus. Impression: No acute fracture. Severe osteoarthritis. .
[2017-03-21] MEDS ORDERED: TIOTROPIUM BR PO PRN (21:02)
[2017-03-21] MEDS ORDERED: ACETAMINOPHEN 325 MG TABLET PO PRN (21:02)
[2017-03-21] MEDS ORDERED: OLODATEROL HCL PO PRN (21:02)
[2017-03-21] MEDS ORDERED: ONDANSETRON 4 MG/2 ML INJECTION IVP PRN (21:02)
[2017-03-21] MEDS ORDERED: TRAMADOL 50 MG TABLET PO PRN (21:02)
[2017-03-21 21:33] VITALS: BMI 29.8
--- NOTE | 2017-03-21 21:35 | History & Physical Report ---
History of Present Illness Date: 03/21/17 Chief complaint: Progressive right knee pain and swelling HPI: This is an 87 year old male who presented to the ER tonight with progressive knee pain and swelling. He is known to Dr Lynn, and has apparently had bilateral knee surgeries in his past. The swelling has been progressing for apparently a month now on his right knee. Some fluid was collected via outpatient arthrocentesis 1 week ago and sent for culture, but by report has yet to be resulted. However unfortunately for this gentleman, he has not been able to get out of his recliner at home for the last 3-4 days. The pain has been too debilitating for him. He was brought [facility] after he was unable to get out of this car when going to the doctor's office to seek further care today. In the emergency department, is [place] [id number]. A urinalysis is pending. ER physician spoke with Dr Lynn, who requests that he be placed under observation this evening and he will see this patient in the morning for further discussion of therapeutic options. Please note this patient encounter was performed via the use of telemedicine technology Review of Systems All systems PM: 10-point ROS was reviewed, no additional remarkable complaints except [facility] Medical History (Last Reviewed 03/14/17 @ 15:52 by TANMAY Mercedes) Knee pain (Acute Medical) Weakness (Acute Medical) Cataracts, bilateral (Chronic Medical) Pneumonia (Chronic Medical) Tremor of both hands (Chronic Medical) Depression (Chronic Medical) Anxiety (Chronic Medical) CAP (community acquired pneumonia) (Resolved Medical) Failure of outpatient treatment (Acute Medical) Atrial fibrillation (Acute Medical) HTN (hypertension) (Chronic Medical) Right knee pain (Acute Medical) Osteoarthritis (Acute Medical) Septic arthritis of knee, right (Acute Medical) Pseudogout of right knee (Resolved Medical) Acute hypoxemic respiratory failure (Resolved Medical) HTN (hypertension) (Chronic Medical) Surgical History: Appendectomy. Right leg surgery/infection site. nose surgery. Rt Knee scope 02-18-17. L3-S1 laminectomy & fusion. left cataract extraction Family History: Family History (Last Reviewed 03/14/17 @ 15:52 by TANMAY Mercedes) Father Arthritis Mother Dementia Asthma - Social History Smoking status: Former smoker Medications Home Medications Medication Instructions Recorded Confirmed Type Cholecalciferol [Vit. D-3] 1,000 unit PO DAILY 02/16/17 03/21/17 History Acetaminophen SR [Tylenol 650 mg PO Q8HR PRN 03/21/17 03/21/17 History Arthritis] Budesonide/Formoterol Fumarate 2 puff INH BID 03/21/17 03/21/17 History [Symbicort 160-4.5 Mcg Inhaler] Fluticasone Nasal [place] [Flonase] 1 spray EA NOSTRIL DAILY 03/21/17 03/21/17 History Levalbuterol 1.25mg/3ml NEB 1.25 mg AEROSOL TID 03/21/17 03/21/17 History [XOPENEX 1.25mg/3ml] Potassium Chloride [K-Tab ER] 20 meq PO DAILY 03/21/17 03/21/17 History Rivaroxaban [Xarelto] 20 mg PO DAILY 03/21/17 03/21/17 History Tiotropium Br/Olodaterol HCl 1 spray IH PRN PRN 03/21/17 03/21/17 History [Stiolto Respimat Inhal [place]] Tramadol [Ultram] 50 mg PO QID PRN 03/21/17 03/21/17 History dilTIAZem HCl [Cartia Xt] 240 mg PO DAILY 03/21/17 03/21/17 History Allergies Allergy/AdvReac Type Severity Reaction Status Date / Time No Known Allergies Allergy Verified 03/21/17 15:18 Exam Vital Signs: Temperature 97.8 F 03/21/17 17:00 Pulse Rate 84 03/21/17 20:16 Respiratory Rate 20 03/21/17 20:16 Blood Pressure 160/74 H 03/21/17 20:16 Pulse Oximetry 92 03/21/17 20:16 - Constitutional Present: no acute distress, obese - Routine HEENT Exam Head: Present: normocephalic, atraumatic - Routine Respiratory Exam Present: CTA bilaterally. Absent: accessory muscle use - Routine Cardiovascular Exam Present: RRR, S1, S2 - Routine Abdominal Exam Present: soft. Absent: tenderness - Routine Extremities Exam Present: edema (of the right knee is observed) - Routine Neurological Exam Present: alert, oriented X3 Results - Labs CBC & Chem 7: 03/21/17 17:31 03/21/17 17:31 Assessment and Plan (1) Knee pain Current visit: Yes Status: Acute Assessment and Plan: Assessment Progressive weakness and debility secondary to pain and swelling of the right knee History of polyarticular pseudogout History of rheumatoid arthritis Atrial fibrillation on chronic rate control with diltiazem and anticoagulated with DOAC Hypertension Plan As requested, this patient will be placed under observational status to the hospitalist team on the medical floor. Consultation to Orthopedic team. I will keep him NPO after midnight. I have requested that his DOAC be held in the morning in the event a procedure would need to be performed. He did take his anticoagulation earlier today he states. I will review the remainder of the home medications and continue those which would be appropriate. DVT prophylaxis: He is already on direct oral anticoagulation Hospital Course Summary Disclaimer: The visit summary below is not to be considered part of the above Progress Note.
[2017-03-21] MEDS: NS 1,000 ML IV SCH (22:30)
[2017-03-22] MEDS: NS 1,000 ML IV SCH (08:55)
[2017-03-22] MEDS: FLUTICASONE NASAL SPRAY 50mcg EA NOSTRIL SCH (09:40)
[2017-03-22] MEDS: SOTALOL 80 MG TABLET PO SCH ×2 (09:40→17:47)
[2017-03-22] MEDS: HYDROCODONE/APAP 5mg/325mg TABLET PO PRN ×2 (11:41→18:22)
--- NOTE | 2017-03-22 13:46 | Progress Note ---
- Date 03/22/17 Subjective: Pt reports knee pain. Denies any f/c, any drainage from knee. Pt denies any cp, sob, n/v/d. Weight bearing makes the pain worse. Objective Vital signs: Temperature 98.5 F 03/22/17 07:36 Pulse Rate 83 03/22/17 09:40 Respiratory Rate 18 03/22/17 07:36 Blood Pressure 180/83 H 03/22/17 07:36 Pulse Oximetry 90 03/22/17 07:36 Height/Weight/BMI: Height 5 ft 9 in Weight 91.7 kg Body Mass Index 29.8 - Constitutional Present: mild distress - Routine HEENT Exam Head: Present: normocephalic, atraumatic Eye: Present: EOMI ENT: Present: mucous membranes moist - Routine Respiratory Exam Present: CTA bilaterally. Absent: dyspnea - Routine Cardiovascular Exam Present: RRR, no murmur - Routine Abdominal Exam Present: soft. Absent: non distended, non tender - Routine Extremities Exam Present: joint swelling (right knee sweeling, no erythema, mildly warme then left knee). Absent: cyanosis, clubbing - Routine Musculoskeletal Exam Musculoskeletal: Present: joint swelling, limited range of motion - Routine Skin Exam Present: intact, dry. Absent: cyanosis - Routine Neurological Exam Present: alert, oriented X3 - Routine Psychiatric Exam Present: normal affect Results - Labs CBC & Chem 7: 03/22/17 05:21 03/22/17 05:21 Assessment and Plan (1) Knee pain Current visit: Yes Status: Acute Assessment and Plan: Assessment Right Knee swelling -Likely psuedogout vs. gout vs. infection -Previous knee aspiration showed Ca pyrophos crystals and no organisms (but unclear if abx were already given) -Previous synovial fluid also showed large RBC count-->pt had a fall and knee trauma prior to knee swelling and pt is on Xarelto so likely it was a combination of psuedogout and trauma -Pt stable, hold off on any abx -Ortho consulted, will need aspiration again to evaluate synovial fluid -After ruling out infection, will tx psuedogout with anti-inflammatory meds -UA 4.4, CRP 251 Transaminitis -DORAN? vs. meds vs. unclear etiology -Will get abd US, iron panel Afib -On Xarelto, diltiazem, sotalol -Hold Xarelto for possible procedure Hospital Course Summary Disclaimer: The visit summary below is not to be considered part of the above Progress Note. Hospital Course: 03/22/17 14:03 Pt admitted for knee pain and swelling and was recently admitted for similar reason. Synovial fluid for that admission looked like psuedogout with possible trauma mixed in d/t large number of RBC's. No organism was found at that time in the fluid. This is likely similar episode but will await ortho to see the pt and tap the knee to rule out infection before treating. Pt is stable and thus does not require any urgent tx.
--- NOTE | 2017-03-22 15:16 | Ultrasound Report ---
Indication: transaminitis PROCEDURE: US liver: Encounter: Initial Comparison: None Technique: Grayscale and color Doppler sonographic imaging of the right upper quadrant of the abdomen was performed. Findings: Hepatic parenchyma is homogeneous without evidence for focal mass. The gallbladder shows cholelithiasis without wall thickening, pericholecystic fluid or sonographic Trent's sign. Both the intra and extrahepatic biliary system are of normal caliber with the common duct measuring 6 mm in dimension. Pancreas is not well seen due to acoustic shadowing. The right kidney is present without collecting system dilatation. The right kidney measures 10.7 cm in length. Impression: Cholelithiasis without evidence of acute cholecystitis. No hepatic abnormalities seen. .
--- NOTE | 2017-03-22 16:55 | Operative Note ---
Orthopedic Procedures - Joint Aspiration/Injection Joint Aspiration/Injection 1 Time out performed: No Side of body: right Joint aspirated: knee Ultrasound guidance: No Skin prep: Chlorhexidine Needle size used: 18G Fluid obtained: turbid Total fluid obtained (mL): 10 Patient tolerated procedure: well, no complications Complications: none
--- NOTE | 2017-03-22 16:57 | Orthopedic Consult Note ---
Orthopedic Consultation HPI - Consultation Info Consult Date: 03/22/17 Attending Physician: Wiley Zhou MD Consult Reason: joint pain - History of Present Illness Mr. ram is known to me from a previous hospitalization. Clinically it was suspected he had a septic knee and we proceeded with arthroscopic debridement. A timeout surgery was noted that he had severe degenerative changes. Cultures never grew out any bacteria but did show pseudogout. Mr. ram was admitted last night for pain control for increasing right knee pain. He complains only of right knee pain to me. He states he can't fully extend his knee. Review of Systems - Constitutional Constitutional: Absent: chills, fever(s), night sweats - Cardiovascular Cardiovascular: Absent: chest pain, palpitations - Respiratory Respiratory: Absent: cough, dyspnea - Gastrointestinal Gastrointestinal: Absent: abdominal pain, nausea, vomiting - Musculoskeletal Musculoskeletal: Present: as per HPI - Integumentary/Breasts Integumentary: Absent: lesions, rash - Neurological Neurological: Absent: numbness, tingling PFS Patient Stated Medical History Transient Ischemic Attacks ( Yes: possibly-in 1998 TIA) Cataracts Yes: removed Cardiac Arrhythmia Yes Hypertension Yes Bronchitis Yes Chronic Obstructive Pulmonary Yes Disease (COPD) Pneumonia Yes Hx Incontinence No Other Musculoskeletal Yes: TIA no appArent residuals Other Infectious Yes: SKIN INFECTION OF WOUND, YEARS AGO. Clinic Medical History (Last Reviewed 03/14/17 @ 15:52 by TANMAY Mercedes) Knee pain (Acute Medical) Weakness (Acute Medical) Cataracts, bilateral (Chronic Medical) Pneumonia (Chronic Medical) Tremor of both hands (Chronic Medical) Depression (Chronic Medical) Anxiety (Chronic Medical) CAP (community acquired pneumonia) (Resolved Medical) Failure of outpatient treatment (Acute Medical) Atrial fibrillation (Acute Medical) HTN (hypertension) (Chronic Medical) Right knee pain (Acute Medical) Osteoarthritis (Acute Medical) Septic arthritis of knee, right (Acute Medical) Pseudogout of right knee (Resolved Medical) Acute hypoxemic respiratory failure (Resolved Medical) HTN (hypertension) (Chronic Medical) Surgical History: Appendectomy. Right leg surgery/infection site. nose surgery. Rt Knee scope 02-18-17. L3-S1 laminectomy & fusion. left cataract extraction Family History: Family History (Last Reviewed 03/14/17 @ 15:52 by TANMAY Mercedes) Father Arthritis Mother Dementia Asthma - Social History Smoking status: Former smoker Medications Home Medications Medication Instructions Recorded Confirmed Type Cholecalciferol [Vit. D-3] 1,000 unit PO DAILY 02/16/17 03/21/17 History Acetaminophen SR [Tylenol 650 mg PO Q8HR PRN 03/21/17 03/21/17 History Arthritis] Budesonide/Formoterol Fumarate 2 puff INH BID 03/21/17 03/21/17 History [Symbicort 160-4.5 Mcg Inhaler] Fluticasone Nasal [place] [Flonase] 1 spray EA NOSTRIL DAILY 03/21/17 03/21/17 History Levalbuterol 1.25mg/3ml NEB 1.25 mg AEROSOL TID 03/21/17 03/21/17 History [XOPENEX 1.25mg/3ml] Potassium Chloride [K-Tab ER] 20 meq PO DAILY 03/21/17 03/21/17 History Rivaroxaban [Xarelto] 20 mg PO DAILY 03/21/17 03/21/17 History Tiotropium Br/Olodaterol HCl 1 spray IH PRN PRN 03/21/17 03/21/17 History [Stiolto Respimat Inhal [place]] Tramadol [Ultram] 50 mg PO QID PRN 03/21/17 03/21/17 History dilTIAZem HCl [Cartia Xt] 240 mg PO DAILY 03/21/17 03/21/17 History Allergies Allergy/AdvReac Type Severity Reaction Status Date / Time No Known Allergies Allergy Verified 03/21/17 15:18 Orthopedic Exam Vital signs: Temperature 98.2 F 03/22/17 16:35 Pulse Rate 81 03/22/17 16:35 Respiratory Rate 16 03/22/17 16:35 Blood Pressure 173/78 H 03/22/17 16:35 Pulse Oximetry 91 03/22/17 16:35 - Constitutional General Appearance: Present: no acute distress, well developed, well nourished - Respiratory Exam Present: non-labored - Cardiovascular Exam Present: pedal pulses intact - Extremities Exam Present: joint swelling (right knee sweeling, no erythema, mildly warme then left knee). Absent: cyanosis, clubbing - Integumentary Exam Present: pink, warm, dry Comments: Flexed about 30. Unable to fully extend passively due to pain. There is 1+ effusion. - Neurological Exam Present: intact to light touch, no deficits - Psychiatric Exam Present: alert, normal affect - Labs Result Diagrams: 03/22/17 05:21 03/22/17 05:21 Abnormal lab results 03/21/17 03/22/17 03/22/17 Range/Units 19:54 05:21 05:21 RBC 4.03 L (4.50-5.90) M/MM3 Hgb 11.7 L (13.5-17.5) GM/DL Hct 35.8 L (41-53) % Neutrophils % (Manual) 79.0 H (33-66) % Lymphocytes % (Manual) 12.0 L (23-45) % Creatinine 0.6 L D (0.8-1.5) MG/DL Urine Protein Trace A (NEGATIVE) Urine Ketones Trace A (NEGATIVE) Urine Occult Blood 1+ A (NEGATIVE) Urine Bilirubin 1+ A (NEGATIVE) Urine Bacteria Trace H (NEGATIVE) H & H 03/22/17 Range/Units 05:21 Hgb 11.7 L (13.5-17.5) GM/DL Hct 35.8 L (41-53) % Impression and Recommendation (1) Pseudogout Current visit: Yes Status: Suspected I suspect that this is pseudogout. He was in our office last week and Vincent aspirated the knee and it has not shown any signs of infection. I discussed Mr. Redd with the hospitalist to would like another confirmatory aspiration before treating his pseudogout. I agree with this plan. We'll aspirate his knee today and recommend treatment for pseudogout and PT for weightbearing as tolerated. May consider a brace if he struggles with PT. Hospital Course Summary Disclaimer: The visit summary below is not to be considered part of the above Progress Note. Hospital Course: 03/22/17 14:03 Pt admitted for knee pain and swelling and was recently admitted for similar reason. Synovial fluid for that admission looked like psuedogout with possible trauma mixed in d/t large number of RBC's. No organism was found at that time in the fluid. This is likely similar episode but will await ortho to see the pt and tap the knee to rule out infection before treating. Pt is stable and thus does not require any urgent tx.
[2017-03-23] MEDS: SOTALOL 80 MG TABLET PO SCH ×2 (06:02→17:40)
[2017-03-23] MEDS: HYDROCODONE/APAP 5mg/325mg TABLET PO PRN (09:07)
[2017-03-23] MEDS: FLUTICASONE NASAL SPRAY 50mcg EA NOSTRIL SCH (09:08)
[2017-03-23] MEDS ORDERED: TRIAMCINOLONE 40mg/ml 1ml INJECTION INJ ONE (12:30)
[2017-03-23] MEDS ORDERED: BUPIVACAINE 0.25% (2.5mg/ml) PF 30ml INJECTION IJ ONE (12:30)
--- NOTE | 2017-03-23 13:24 | Orthopedic Progress Note ---
Date: Subjective/Severity of Illness: Procedure: Dr. Lynn gave me an order to inject Mr. Ramires's left glenohumeral joint. I performed the procedure only. After obtaining verbal consent from the patient the left posterior shoulder was prepped with Chlorhexidine. Using sterile technique the left glenohumeral joint was injected with 2 ml of 1% Lidocaine, 2ml 0.25% Marcaine and 2ml of Kenalog. The area was cleansed with an alcohol swab. The patient tolerated the procedure well. Orthopedic Objective PO Vital signs: Temperature 97.5 F 03/23/17 08:54 Pulse Rate 85 03/23/17 08:54 Respiratory Rate 16 03/23/17 08:54 Blood Pressure 187/85 H 03/23/17 08:54 Pulse Oximetry 91 03/23/17 08:54 Height and Weight: Height 5 ft 9 in Weight 200 lb 13.458 oz Body Mass Index 29.8 - Constitutional General Appearance: Present: no acute distress, well developed, well nourished - Respiratory Exam Present: non-labored - Cardiovascular Exam Present: pedal pulses intact - Integumentary Exam Present: pink, warm, dry - Neurological Exam Present: intact to light touch, no deficits - Psychiatric Exam Present: alert, normal affect - Labs Result Diagrams: 03/23/17 04:18 03/23/17 04:18 Abnormal lab results 03/22/17 03/23/17 03/23/17 Range/Units 05:21 04:18 04:18 RBC 4.01 L (4.50-5.90) M/MM3 Hgb 11.5 L (13.5-17.5) GM/DL Hct 35.6 L (41-53) % Neut % (Auto) 67.0 H (33-66) % Lymph % (Auto) 16.3 L (23-45) % [place] % (Auto) 12.5 H (0-9.0) % [place] # (Auto) 1.2 H (0-0.8) T/MM3 Creatinine 0.6 L (0.8-1.5) MG/DL Iron 28 L (49-181) UG/DL TIBC 231 L (261-497) UG/DL % Saturation 12 L (13-59) % Albumin 3.1 L (3.5-5.0) G/DL H & H 03/22/17 03/23/17 Range/Units 05:21 04:18 Hgb 11.7 L 11.5 L (13.5-17.5) GM/DL Hct 35.8 L 35.6 L (41-53) % Orthopedic Assessment and Plan (1) Pseudogout Status: Suspected Hospital Course Summary Disclaimer: The visit summary below is not to be considered part of the above Progress Note. Hospital Course: 03/22/17 14:03 Pt admitted for knee pain and swelling and was recently admitted for similar reason. Synovial fluid for that admission looked like psuedogout with possible trauma mixed in d/t large number of RBC's. No organism was found at that time in the fluid. This is likely similar episode but will await ortho to see the pt and tap the knee to rule out infection before treating. Pt is stable and thus does not require any urgent tx.
[2017-03-23] MEDS ORDERED: COLCHICINE 0.6 MG TABLET PO ONE (14:34)
--- NOTE | 2017-03-23 14:41 | Extended Care Facility Orders ---
Admission Orders Admit to:: Shelter Allergies/Adverse Reactions: Allergies No Known Allergies Allergy (Verified 03/21/17 15:18) Admitting Diagnosis: knee pain and dibility Admitting Physician: Wiley Zhou MD Attending Physician: Wiley Zhou MD Anticiapted Length of Stay: 30 days or less Rehab Potential: fair Rehab Prognosis: fair Diet: 03/22/17 Dinner Regular Diet [DIET] Diet Modifications: 03/23/17 Breakfast Regular Diet [DIET] Diet Modifications: May use Facility Protocol or Standing Orders: Yes Evaluations/Treatment: PT, OT Shelter Certification: I certify that SNF services are required to be given on an Inpatient basis because of the patients need for fdc care on a continuing basis for the condition(s) for which he/she received inpatient hospital services prior to his/her transfer to the SNF. SNF inpatient care is necessary for the following reasons - Additional Information In Event of Arrest: Start CPR,call 911,send patient to the ER Referrals: Duarte Fowler MD [Physician] - (Please schedule follow-up appointment for preoperative cardiac clearance) Julius Lynn MD [Physician] - (Please schedule follow up apt to discuss/ schedule surgery) Kael Rehman DO [Family Provider] - (Schedule follow up in 1-2 weeks) Additional Orders: Start colchicine tomorrow morning 03/24/17. Please review all follow up apts needed
--- NOTE | 2017-03-23 14:51 | Discharge Summary ---
<Hortensia Pantoja V - Last Filed: 03/23/17 14:47> Discharge Information Date of admission: 03/21/17 19:46 Anticipated date of discharge: 03/23/17 Attending Physician: Wiley Zhou MD Primary care physician: Kael Rehman DO Consults: Dr Lynn- Orthopedic Consultation - Discharge Diagnosis (1) Knee pain Status: Acute Pseudogout- of the right knee Right knee swelling Right knee pain Left shoulder pain Transaminitis Atrial fibrillation Chronic anticoagulation - Procedures Procedures: 03/23/17- Left shoulder injection of Injected with 2 ml of 1% Lidocaine, 2ml 0.25% Marcaine and 2ml of Kenalog- by Dr Lynn/ August- PA 03/22/17- Right knee aspiration by Dr. Lynn - Laboratory Labs: 03/23/17 04:18 03/23/17 04:18 - Microbiology Microbiology 03/22/17 16:50 Synovial Fluid, Left Knee Gram Stain - Final 03/22/17 16:50 Synovial Fluid, Left Knee Body Fluid Culture - Preliminary Culture Initiated - Results Pending - Radiology Radiology: 03/21/17- Knee Xray- Severe Osteoarthritis 03/21/17- Left shoulder Xray- No acute osseous abnormality. 03/22/17- Liver Sonogram- Impression: Cholelithiasis without evidence of acute cholecystitis. No hepatic abnormalities seen. - Pathology None History of Present Illness HPI: This is an 87 year old male who presented to the ER [facility] with progressive knee pain and swelling. He is known to Dr Lynn, and has apparently had bilateral knee surgeries in his past. The swelling has been progressing for apparently a month now on his right knee. Some fluid was collected via outpatient arthrocentesis 1 week ago and sent for culture, but by report has yet to be resulted. However unfortunately for this gentleman, he has not been able to get out of his recliner at home for the last 3-4 days. The pain has been too debilitating for him. He was brought in [facility] after he was unable to get out of this car when going to the doctor's office to seek further care today. In the emergency department, [place] [id number]. A urinalysis is pending. ER physician spoke with Dr Lynn, who requests that he be placed under observation this evening and he will see this patient in the morning for further discussion of therapeutic options. Please note this patient encounter was performed via the use of telemedicine technology Objective Vital signs: Temperature 97.5 F 03/23/17 08:54 Pulse Rate 85 03/23/17 08:54 Respiratory Rate 16 03/23/17 08:54 Blood Pressure 187/85 H 03/23/17 08:54 Pulse Oximetry 91 03/23/17 08:54 Height/Weight/BMI: Height 1.75 m Weight 91.1 kg Body Mass Index 29.8 - Constitutional Present: no acute distress, well nourished, well developed - Routine HEENT Exam Eye: Present: EOMI ENT: Present: mucous membranes moist, dentition normal - Routine Respiratory Exam Present: CTA bilaterally. Absent: wheezes - Routine Cardiovascular Exam Present: RRR, S1, S2. Absent: murmur - Routine Abdominal Exam Present: soft, normoactive bowel sounds, non distended. Absent: tenderness - Routine Extremities Exam Present: pulses intact Comments: Right knee - Routine Skin Exam Present: intact, dry, warm - Routine Neurological Exam Present: alert, oriented X3, CN II-XII intact - Routine Lymphatic Exam Lymphatic: Absent: adenopathy - Routine Psychiatric Exam Present: normal affect, cooperative Hospital Course This is a general summary of the patient's hospital course. For more details refer to the complete medical record. Hospital course: 03/22/17 Pt admitted for knee pain and swelling and was recently admitted for similar reason. Synovial fluid for that admission looked like psuedogout with possible trauma mixed in d/t large number of RBC's. No organism was found at that time in the fluid. This is likely similar episode but will await ortho to see the pt and tap the knee to rule out infection before treating. Pt is stable and thus does not require any urgent tx. 03/23/17- Discharge Mr Ramires is seen and examined on day of discharge. He received steroid injection of the left shoulder by the orthopedic team today. He also underwent aspiration of the right knee yesterday, no evidence of acute infection, likely pseudogout. Final results pending. Plan is to discharge patient to skilled rehabilitation at [facility]. He will plan to follow-up in the outpatient setting with Dr. Fowler for cardiac clearance as well as Dr. Lynn to schedule a right knee replacement. It is also recommended that he follow -up with a screw machine setter. Patient is to resume all home medications. Will also add colchicine 0.6 milligrams twice a day. He did receive Colchicine 1.2 milligrams by mouth today prior to discharge. Case discussed with Dr. Lynn, Dr. Fowler and case management. Patient is discharged in stable condition DVT Prophylaxis: Xarelto Discharge Plan - Discharge Disposition Discharge Date: 03/23/17 Disposition: 03 To [facility] Not [facility] [place] [facility]) *Condition: Stable Reason For Visit (Visit label in EMR): knee pain and dibility - Discharge Medications *Discharge Medications: New Colchicine 0.6 mg PO BID #60 tab Continue Cholecalciferol [Vit. D-3] 1,000 unit PO DAILY Sotalol [Betapace] 40 mg PO ACBID #60 tab Tiotropium Br/Olodaterol HCl [Stiolto Respimat Inhal [place]] 1 spray IH PRN PRN PRN Reason: Prn Orders Levalbuterol 1.25mg/3ml NEB [XOPENEX 1.25mg/3ml] 1.25 mg AEROSOL TID dilTIAZem HCl [Cartia Xt] 240 mg PO DAILY Rivaroxaban [Xarelto] 20 mg PO DAILY Acetaminophen SR [Tylenol Arthritis] 650 mg PO Q8HR PRN PRN Reason: Pain Potassium Chloride [K-Tab ER] 20 meq PO DAILY Budesonide/Formoterol Fumarate [Symbicort 160-4.5 Mcg Inhaler] 2 puff INH BID Fluticasone Nasal [place] [Flonase] 1 spray EA NOSTRIL DAILY Tramadol [Ultram] 50 mg PO QID PRN #30 tab PRN Reason: Pain - Discharge Packet/Instructions *Diet: Regular *Activity: Activity as tolerated *Pain Management/Treatment: Tylenol and Ultram as needed *Wound Care: None Additional Instructions: Start Colchicine 0.6mg BID starting morning of 03/24. He will need to follow up with Dr Fowler for Pre-op of cardiac clearance. Will need referral for follow-up appointment with screw machine setter. *Notify Physician if: Fever, chills, severe redness to right knee, increased pain or swelling *During Business Hours Contact: PCP Dr Rehman *After Business Hours Contact: Page oncall physician *Pending Lab/Results: Follow up w/your PCP - Referrals/Follow Up *Referrals/Follow Up: Duarte Fowler MD [Physician] - (Please schedule follow-up appointment for preoperative cardiac clearance) Julius Lynn MD [Physician] - (Please schedule follow up apt to discuss/ schedule surgery) Kael Rehman DO [Family Provider] - (Schedule follow up in 1-2 weeks) - Patient Handouts - Dismissal Complete Discharge Instructions are:: Complete <Wiley Zhou - Last Filed: 03/23/17 15:53> Discharge Information Date of admission: 03/21/17 19:46 Attending Physician: Wiley Zhou MD Primary care physician: Kael Rehman DO Consults: 03/21/17 21:02 Physician Consult [CONS] Routine Consulting Provider: Julius Lynn Reason For Exam: painful kneed Ordering Provider has Notified Transmitter Operator: Yes 03/22/17 14:19 IRU Screening [Inpatient Rehab Screening] [CONS] Routine - Discharge Diagnosis (1) Knee pain Status: Acute - Laboratory Labs: 03/23/17 04:18 03/23/17 04:18 - Microbiology Microbiology 03/22/17 16:50 Synovial Fluid, Left Knee Gram Stain - Final 03/22/17 16:50 Synovial Fluid, Left Knee Body Fluid Culture - Preliminary Culture Initiated - Results Pending Objective Vital signs: Temperature 97.9 F 03/23/17 15:31 Pulse Rate 84 03/23/17 15:31 Respiratory Rate 18 03/23/17 15:31 Blood Pressure 154/84 H 03/23/17 15:31 Pulse Oximetry 95 03/23/17 15:31 Height/Weight/BMI: Height 5 ft 9 in Weight 91.1 kg Body Mass Index 29.8 Hospital Course This is a general summary of the patient's hospital course. For more details refer to the complete medical record. Hospital course: Summary Pt likely has flare of psuedogout that we will treat with colchicine. Steroid injection into the knee was not done because of upcoming right knee surgery by . Pt would benefit from seeing Lands Resource Manager.
[2017-03-23 15:23] VITALS: RESP 18
[2017-03-23 15:33] VITALS: BP 154/84; PULSE 84; TEMP 97.9; O2SAT 95
--- NOTE | 2017-03-23 15:56 | Orthopedic Progress Note ---
Date: Subjective/Severity of Illness: States the right knee pain is slightly better after the aspiration yesterday. Aspiration does not show any signs of infection. He also concerned with left shoulder pain today is been previously injected with gave him good relief. He is requesting injection again today in the left shoulder. Orthopedic Objective Vital signs: Temperature 97.9 F 03/23/17 15:31 Pulse Rate 84 03/23/17 15:31 Respiratory Rate 18 03/23/17 15:31 Blood Pressure 154/84 H 03/23/17 15:31 Pulse Oximetry 95 03/23/17 15:31 Height and Weight: Height 5 ft 9 in Weight 91.1 kg Body Mass Index 29.8 - Constitutional General Appearance: Present: no acute distress, well developed, well nourished - Respiratory Exam Present: non-labored - Cardiovascular Exam Present: pedal pulses intact - Extremities Exam Present: pulses intact - Integumentary Exam Present: pink, warm, dry - Lymphatic Lymphatic: Absent: adenopathy - Neurological Exam Present: intact to light touch, no deficits - Labs Result Diagrams: 03/23/17 04:18 03/23/17 04:18 Abnormal lab results 03/22/17 03/23/17 03/23/17 Range/Units 05:21 04:18 04:18 RBC 4.01 L (4.50-5.90) M/MM3 Hgb 11.5 L (13.5-17.5) GM/DL Hct 35.6 L (41-53) % Neut % (Auto) 67.0 H (33-66) % Lymph % (Auto) 16.3 L (23-45) % [place] % (Auto) 12.5 H (0-9.0) % [place] # (Auto) 1.2 H (0-0.8) T/MM3 Creatinine 0.6 L (0.8-1.5) MG/DL Iron 28 L (49-181) UG/DL TIBC 231 L (261-497) UG/DL % Saturation 12 L (13-59) % Albumin 3.1 L (3.5-5.0) G/DL H & H 03/22/17 03/23/17 Range/Units 05:21 04:18 Hgb 11.7 L 11.5 L (13.5-17.5) GM/DL Hct 35.8 L 35.6 L (41-53) % Orthopedic Assessment and Plan (1) Pseudogout Status: Suspected Assessment and Plan: In regards the right knee he'll be treated for pseudogout with anti- inflammatories. We will not inject his right knee today with corticosteroid in anticipation of the upcoming knee replacement on the right. He'll need medical clearance. In regards to the left shoulder he's done well with previous steroid injections for arthritis and give him another injection today. I will get his in contact my outpatient scheduler to proceed with clearance and scheduling a right knee replacement. Hospital Course Summary Disclaimer: The visit summary below is not to be considered part of the above Progress Note. Hospital Course: Summary Pt likely has flare of psuedogout that we will treat with colchicine. Steroid injection into the knee was not done because of upcoming right knee surgery by . Pt would benefit from seeing [facility].
== END 2017-03-23 17:42 ==
LOC: MED 17:00 → ED 17:00 → SUATTDRO 19:46 → MED 20:57
PROVIDERS: ADMIT Hospitalist; ATTEND Internal Medicine